=== PATIENT | female | born 1975 | race African-American/Black ===

== ENCOUNTER 2019-06-14 15:39 | Outpatient (CLI) | payer OTHER, SELFPAY ==
--- NOTE | ~2019-06-14 | MR_ITS ---
EXAMINATION: MR shoulder LT wo/w con DATE: 06/14/2019 17:18 INDICATION: Muscle strain at the left shoulder TECHNIQUE: Magnetic resonance imaging (MRI) of the left shoulder was performed without intravenous co ntrast. Sequences included axial PD-weighted FS FSE, coronal oblique PD-weighted FS FSE, coronal obli que T2-weighted FS FSE, sagittal PD-weighted FS FSE, and sagittal T1-weighted SE. COMPARISON: Left shoulder radiographs dated 05/26/2019 FINDINGS: Coracoacromial arch: The acromion undersurface is curved in morphology (type II). Fibrocartilaginous synchondrosis with un fused mesoacromial os acromiale. The coracoacromial ligament is normal. Acromioclavicular joint is no rmal. Rotator cuff: Mild infraspinatus tendinopathy with small partial-thickness tear along the middle facet footplate. T he tear has a T-shaped configuration on the sagittal images with thin horizontal mid substance tear p lesley extending 6 mm AP and with small orthogonal longitudinal tear plane extending towards potentiall y involving the articular side of the tendon measuring <2 mm AP. No significant medial propagation of the tear. The subscapularis, supraspinatus and teres minor tendons are normal. Normal rotator cuff m uscle bulk and signal. Biceps tendon, glenoid labrum and glenohumeral cartilage: Long head of the biceps tendon is normal. There is a superior, anterior to posterior tear of the lionel oid labrum (SLAP tear) extending from the 12:30 position anteriorly to the 11:00 position posteriorly . Mild partial thickness cartilage loss with smooth chondral surface at the central to posterior infe rior glenoid. Tiny marginal osteophytes about the inferior rim of the glenoid. Fluid: Physiologic amount of fluid in the glenohumeral joint and biceps tendon sheath. No loose osteochondra l bodies. No abnormal increased fluid signal or enhancing synovitis at the subacromial/subdeltoid bur sa to suggest mild bursitis. Bones: Normal marrow signal with no edema, fracture or pathologic marrow replacing process. IMPRESSION: 1. Mild glenohumeral osteoarthritis with SLAP tear at the superior glenoid labrum. 2. Small partial-thickness predominantly intrasubstance tear at the distalmost infraspinatus tendon w ith tiny extension to the articular surface. 3. Normal variant unfused mesoacromial os acromiale. Reviewed, dictated and finalized at location B. E LINER IMPRESSION: 1. Mild glenohumeral osteoarthritis with SLAP tear at the superior glenoid labr um. 2. Small partial-thickness predominantly intrasubstance tear at the distalmost infraspinatus tendon with tiny extension to the articular surface. 3. Normal variant unfused mesoacromial os acromiale.
[2019-06-14 16:32] LABS: Blood Urea Nitrogen 10 mg/dL (8-26); Estimated Glomerular Filt Rate > 60
== END 2019-06-14 15:40 | disposition home or self-care (01) ==
PROVIDERS: PCP Family Medicine; Visit Provider Family Medicine
DX: S46.912A Strain of unspecified muscle, fascia and tendon at shoulder and upper arm level, left arm, initial encounter (principal); X58.XXXA Exposure to other specified factors, initial encounter; M19.012 Primary osteoarthritis, left shoulder
CPT/HCPCS: 36415; 73223; A9577

== ENCOUNTER 2019-09-18 15:25 | Outpatient (CLI) | payer OTHER, SELFPAY ==
[2019-09-18 15:57] LABS: Hematocrit 38.1 % (37.0-47.0); Hemoglobin 12.8 g/dL (12.0-15.0); Mean Corpuscular HGB Conc 33.6 g/dl (32-36); Mean Corpuscular Hemoglobin 30.3 pg (26-34); Mean Corpuscular Volume 90.3 fl (80-100); Mean Platelet Volume 9.6 fl (7.4-10.4); Platelet Count Result 269 k/mm3 (150-375); Red Blood Count 4.22 M/mm3 (4.2-5.4); Red Cell Distribution Width 11.7 % (11.5-14.5); White Blood Count 6.9 K/mm3 (4.5-10.0)
--- NOTE | 2019-09-18 15:58 | ECG_ITS ---
Measurements Intervals [place] Rate: 103 P: 51 DE: 163 QRS: 56 QRSD: 85 T: 30 QT: 336 QTc: 440 Interpretive Statements SINUS TACHYCARDIA POSSIBLE LEFT ATRIAL ENLARGEMENT BORDERLINE ECG Electronically Signed On 09-18-2019 17:36:03 ACOUSTIC WARFARE ANALYST by Jeramie Mario D.O.
[2019-09-18 16:08] LABS: Hemoglobin A1C 11.9 % (<5.7)
[2019-09-18 16:14] LABS: Alanine Aminotransferase 35 U/L (4-35); Albumin Level 3.7 g/dL (3.5-5.1); Alkaline Phosphatase 84 U/L (38-126); Aspartate Amino Transferase 39 U/L (14-36); Bilirubin,Total 0.3 mg/dL (0.2-1.3); Blood Urea Nitrogen 9 mg/dL (7-17); Calcium 8.5 mg/dL (8.4-10.2); Carbon Dioxide 31 mmol/L (22-30); Chloride 99 mmol/L (98-107); Estimated Glomerular Filt Rate > 60; Glucose 309 mg/dL (65-105); Potassium 3.9 mmol/L (3.4-5.0); Sodium 140 mmol/L (137-145)
== END 2019-09-18 15:26 | disposition home or self-care (01) ==
PROVIDERS: PCP Family Medicine
DX: Z01.818 Encounter for other preprocedural examination (principal); Z01.810 Encounter for preprocedural cardiovascular examination; Z01.812 Encounter for preprocedural laboratory examination; R00.0 Tachycardia, unspecified
CPT/HCPCS: 36415; 80053; 83036; 85027; 93005

== ENCOUNTER 2020-07-21 16:27 | Inpatient (IN) | payer BC, SELFPAY ==
[2020-07-21] VITALS (7 sets, daily range): BP systolic 118–148; BP diastolic 69–86; PULSE 104–115; RESP 20–34; TEMP 36.6–36.9; O2SAT 86–93
--- NOTE | ~2020-07-21 | CT_ITS ---
EXAMINATION: CTA chest PE protocol EXAM DATE: 07/22/2020 12:01 INDICATION: COVID PNA; respiratory failure; chest pain. TECHNIQUE: Spiral CTA of the chest (pulmonary arteries) was performed with 200 cc Omnipaque 350 intr avenous contrast injection (patient was reinjected due to poor pulmonary arterial opacification on in itial injection). Images were acquired during the pulmonary arterial phase. Coronal maximum intens ity projection 3D-reconstructions were created by the technologist on dedicated workstation. Axial, coronal and sagittal reformatted images were reviewed. The dose[facility]length [facility] 835.67 mGy-cm. The exposure was tailored according to patient size (auto mA exposure cont rol), and iterative reconstruction (ASIR) was used as additional dose reduction technique. Comparison is made to prior examination from 04/23/2016. FINDINGS: There are no pulmonary emboli in the 1st through 3rd order (central and interlobar) pulmon geoffrey arteries. Some loss of attenuation in the segmental pulmonary arteries due to respiratory motion , but no intraluminal filling defects suspected. No thoracic aortic dissection. Moderate to severe amount of bilateral subsolid opacities with peripheral predominance, with some of these now demonstrating more confluence, solid attenuation. There are no pleural or pericardial effu sions. Tracheobronchial tree is patent. There is no mediastinal, hilar or axillary lymphadenopath y. There is no pneumothorax. Heart normal in size. No evidence of coronary arterial calcificati on. There is hepatic steatosis. There are cholecystectomy clips. There is thoracic spondylosis wit hout osteoblastic or osteolytic lesions identified. IMPRESSION: 1. Limited segmental evaluation, but no pulmonary emboli are suspected. 2. Moderate to severe amount of bilateral COVID pneumonia. Reviewed, dictated and finalized at location B. TRICAL MAINTENANCE ENGINEER
--- NOTE | ~2020-07-21 | XR_ITS ---
EXAMINATION: XR chest 1V portable EXAM DATE: 07/25/2020 06:20 INDICATION: COVID 19. TECHNIQUE: Portable AP frontal chest x-ray was obtained. Comparison is made to prior examination from 07/21/2020. FINDINGS: Moderate amount of bilateral acute airspace disease consistent with COVID pneumonia. There is relative sparing of the left upper lung zone. No sizable pleural effusion. No pneumothorax. Cardio mediastinal silhouette is normal. Compared to prior study suspect mild improvement. IMPRESSION: Moderate amount of right-sided predominant COVID pneumonia. Mild interval improvement. Reviewed, dictated and finalized at location A. DISPATCHER IMPRESSION: Moderate amount of right-sided predominant COVID pneumonia. Mild i nterval improvement.
--- NOTE | ~2020-07-21 | XR_ITS ---
EXAMINATION: XR chest 1V portable EXAM DATE: 07/21/2020 17:58 INDICATION: sob, COVID. TECHNIQUE: Portable AP frontal chest x-ray was obtained. Comparison is made to prior examination from 03/14/2019. FINDINGS: There is extensive bilateral ill-defined acute airspace disease consistent with COVID pneum onia. No pneumothorax or pleural effusion. Cardiomediastinal silhouette is normal. There are no osseo us abnormalities identified. IMPRESSION: Extensive acute bilateral airspace disease, COVID pneumonia. Reviewed, dictated and finalized at location A. TRY HUSBANDMAN
--- NOTE | 2020-07-21 16:47 | ECG_ITS ---
Measurements Intervals [place] Rate: 106 P: 39 TN: 136 QRS: 32 QRSD: 86 T: 38 QT: 339 QTc: 451 Interpretive Statements SINUS TACHYCARDIA BORDERLINE ECG Electronically Signed On 07-21-2020 18:54:49 GRADALL OPERATOR by Jeramie Mario D.O.
--- NOTE | 2020-07-21 16:50 | ED.GENADULT ---
HPI - General Adult General Chief complaint: Upper Respiratory Infection Stated complaint: COVID x5 days, unable to eat or drink Time Seen by Provider: 07/21/20 16:42 Source: patient Mode of arrival: ambulatory Limitations: no limitations History of Present Illness HPI narrative: This patient is a 44 year old female with history of DM who present for evaluation of nausea, vomiting diarrhea and shortness of breath. She was diagnosed with COVID on Wednesday, and the next day she developed shortness of breath. She is sob with exertion. She also reports intermittent chest pain. She also reports nausea, vomiting and diarrhea. She was found to be hypoxic on arrival with oxygen saturation 86% on room air. She denies lung or cardiac disease. Related Data Home Medications Medication Instructions Recorded Confirmed insulin glargine [Lantus U-100 50 unit SUBCUT HS 07/21/20 07/21/20 Insulin] insulin lispro [Humalog Pen] unit SUBCUT 07/21/20 pregabalin [Lyrica] 50 mg PO BID 07/21/20 07/21/20 Allergies Allergy/AdvReac Type Severity Reaction Status Date / Time No Known Allergies Allergy Unknown Verified 07/21/20 16:39 Review of Systems Review of Systems: All systems reviewed & are unremarkable except as noted in HPI and below Constitutional: Constitutional: Reports fatigue and Reports fever(s) Cardiovascular: Cardiovascular: Reports chest pain and Denies radiating jaw, neck or arm pain Respiratory: Respiratory: Reports cough and Reports dyspnea Gastrointestinal: Gastrointestinal: Reports diarrhea, Reports nausea and Reports vomiting PMFSH Past Medical History Medical History (Updated 07/21/20 @ 18:45 by Rosalba Mtz MD) Diabetes mellitus Surgical History Surgical History (Updated 07/21/20 @ 16:54 by Rosalba Mtz MD) Hx of appendectomy Hx of cholecystectomy Family History Family History (Updated 11/06/16 @ 23:56 by DOCTOR UNKNOWN) Mother Depression Patient's mother is in good health Father Hypertension Patient's father is in good health Family history of diabetes mellitus in first degree relative Sibling Patient's sister is in good health Patient's brother is in good health Grandparent Malignant neoplasm of prostate, Onset Age: 68 Diabetes mellitus Other Family history of pancreatic cancer Social History Social History Alcohol intake: never Gender identity (if verbalized by the patient): Female Exam Const: General: no acute distress, alert and ill appearing Orientation/consciousness: patient oriented x3 HENMT: Head: normocephalic and atraumatic Face and sinus: face symmetric Throat: posterior oropharynx normal and tonsils normal Eyes: EOM: EOMs intact bilaterally Resp: Effort & Inspection: not labored, tachypneic and no use of accessory muscles Auscultation: clear to auscultation bilaterally Other: able to speak in complete sentences Cardio: Rate: tachycardic Rhythm: regular rhythm Heart sounds: no murmurs GI: GI Palp: Yes Soft to palpation, No Tenderness to palpation present (GI) and No Guarding due to palpation present (GI) Auscultation: normal bowel sounds Skin: General skin exam: normal color Rashes: no rashes Neuro: General: patient oriented x3 and moves all extremities Extrem: General: no pedal edema Course Reevaluation(s) Reevaluation #1: I have discussed with patient that she has pneumonia due to COVID. She understands. Date: 07/21/20 Time: 18:41 Consultations Consultation #1: I Discussed case with Tonya Sheldon. She accepts patient with covid pneumonia and hypoxia. Agree unable to given remdesivir right now due to ALT elevated greater that 5 times. Date: 07/21/20 Time: 18:42 Vital Signs Vital signs: Vital Signs Temperature 98.4 F 07/21/20 16:32 Pulse Rate 111 H 07/21/20 16:32 Respiratory Rate 34 H 07/21/20 16:32 Blood Pressure 126/77 07/21/20 16:32 Pulse Oximetry 86 L 07/21/20 16:32 Te
[2020-07-21] MEDS: ONDANSETRON INJ 4 MG/2 ML VIAL IV PUSH (17:34)
[2020-07-21] MEDS: DEXAMETHASONE SOD PHOS INJ 4 MG/ML VIAL 6 MG IV PUSH (17:34)
[2020-07-21] MEDS: SODIUM CHLORIDE 0.9% IV 1,000 ML 999 ML IV CONT (17:35)
[2020-07-21 17:36] LABS: Base Excess ABG -3.4 mEq/l (+/-2.0); Carboxyhemoglobin 0.1 % THb (0-2.0); Fractional Inspired Oxygen 34 %; HCO3 ABG 19.9 mEq/l (22.0-26.0); Methemoglobin ABG 0.3 %THb (0-1.5); Oxygen Content ABG 17.8 %vol (16.0-22.0); Oxygen Saturation ABG 93.7 % (95.0-100.0); Oxyhemoglobin 92.2 % THb (90.0-100.0); PCO2 ABG 31.2 mmHg (35.0-45.0); PO2 ABG 66.1 mmHg (80.0-100.0); PO2 FiO2 Ratio Arterial Blood 1.94 %; Reduced Hemoglobin 7.4 %THb (0-5.0); Total Hemoglobin 13.7 g/dL (12.0-18.0); pH ABG 7.423 (7.350-7.450)
[2020-07-21 17:37] LABS: Device NASAL CANNULA; Liters per Minute 3.5 LPM; Modified Allen's Test Pass; Site Drawn LEFT RADIAL
[2020-07-21 17:55] LABS: Basophils Percent Auto 0.2 % (0.2-1.2); Eosinophils Percent Auto 0.2 % (0-4.4); Hematocrit 39.6 % (37.0-47.0); Hemoglobin 13.5 g/dL (12.0-15.0); Immature Granulocyte Absolute 0.02 K/mm3 (0.00-0.031); Immature Granulocyte Percent A 0.3 % (0-0.5); Lymphocytes Absolute Auto 1.49 K/mm3 (0.9-3.2); Lymphocytes Percent Auto 22.7 % (18.3-44.2); Mean Corpuscular HGB Conc 34.1 g/dl (32-36); Mean Corpuscular Hemoglobin 29.8 pg (26-34); Mean Corpuscular Volume 87.4 fl (80-100); Mean Platelet Volume 9.3 fl (7.4-10.4); Monocytes Absolute Auto 0.3 K/mm3 (0.1-0.6); Monocytes Percent Auto 3.8 % (2.6-8.5); Neutrophils Absolute Auto 4.8 K/mm3 (1.3-6.7); Neutrophils Percent Auto 72.8 % (45.5-73.1); Platelet Count Result 248 k/mm3 (150-375); Red Blood Count 4.53 M/mm3 (4.2-5.4); Red Cell Distribution Width 11.9 % (11.5-14.5); White Blood Count 6.6 K/mm3 (4.5-10.0)
[2020-07-21 18:06] LABS: Prothrombin Time 13.8 Seconds (11.1-14.7)
[2020-07-21 18:07] LABS: Partial Thromboplastin Time 26.1 SECONDS (22.3-36.8)
[2020-07-21 18:08] LABS: Lactic Acid Reflex 1.5 mmol/L (0.7-2.1)
[2020-07-21 18:12] LABS: Alanine Aminotransferase 186 U/L (4-35); Albumin Level 3.9 g/dL (3.5-5.1); Alkaline Phosphatase 139 U/L (38-126); Anion Gap 14 mmol/L (8-16); Aspartate Amino Transferase 205 U/L (14-36); Bilirubin,Total 0.6 mg/dL (0.2-1.3); Blood Urea Nitrogen 12 mg/dL (7-17); CRP 8.4 mg/dL (<1.0); Calcium 8.8 mg/dL (8.4-10.2); Carbon Dioxide 24 mmol/L (22-30); Chloride 101 mmol/L (98-107); Estimated Glomerular Filt Rate > 60; Glucose 317 mg/dL (65-105); Potassium 3.5 mmol/L (3.4-5.0); Sodium 139 mmol/L (137-145)
[2020-07-21 18:16] LABS: Platelet Estimate Adequate (Adequate)
[2020-07-21 18:17] LABS: Atypical Lymphocytes Present
[2020-07-21 18:21] LABS: Troponin I < 0.012 ng/mL (0.000-0.034)
--- NOTE | 2020-07-21 22:21 | PC.NURSE ---
This patient, Citlaly Orona, was admitted to [facility] Surg Room 314-01. Patient/family oriented to hospital policies and general routines including ID bracelet, bed and alarms, visiting hours, pain management, procedures, bathroom and other care routines, personal items, smoking policy, room service/diet, and visiting hours. Information on how to activate the Rapid Response Team has been discussed. Patient/Family are encouraged to report perceived risks to care and to ask questions if they do not understand what they are told or what they should do.
[2020-07-21] MEDS: ALBUTEROL SULFATE (*SP) AEROSOL 1 PUFF 6 PUFF INHALATION (23:06)
[2020-07-21] MEDS: LACTATED RINGERS 1,000 ML 125 ML IV CONT (23:17)
[2020-07-22 06:00] VITALS: BP 126/86; PULSE 115; RESP 18; TEMP 37; O2SAT 96
[2020-07-22 06:38] LABS: Basophils Percent Auto 0.1 % (0.2-1.2); Hematocrit 36.5 % (37.0-47.0); Hemoglobin 12.3 g/dL (12.0-15.0); Immature Granulocyte Absolute 0.04 K/mm3 (0.00-0.031); Immature Granulocyte Percent A 0.6 % (0-0.5); Lymphocytes Absolute Auto 1.22 K/mm3 (0.9-3.2); Lymphocytes Percent Auto 17.4 % (18.3-44.2); Mean Corpuscular HGB Conc 33.7 g/dl (32-36); Mean Corpuscular Hemoglobin 29.4 pg (26-34); Mean Corpuscular Volume 87.1 fl (80-100); Mean Platelet Volume 9.2 fl (7.4-10.4); Monocytes Absolute Auto 0.3 K/mm3 (0.1-0.6); Monocytes Percent Auto 4.3 % (2.6-8.5); Neutrophils Absolute Auto 5.4 K/mm3 (1.3-6.7); Neutrophils Percent Auto 77.6 % (45.5-73.1); Platelet Count Result 250 k/mm3 (150-375); Red Blood Count 4.19 M/mm3 (4.2-5.4); Red Cell Distribution Width 11.9 % (11.5-14.5)
[2020-07-22] MEDS: LACTATED RINGERS 1,000 ML 125 ML IV CONT (06:38)
[2020-07-22 06:58] LABS: Alanine Aminotransferase 161 U/L (4-35); Albumin Level 3.5 g/dL (3.5-5.1); Alkaline Phosphatase 118 U/L (38-126); Anion Gap 12 mmol/L (8-16); Aspartate Amino Transferase 140 U/L (14-36); Bilirubin,Total 0.4 mg/dL (0.2-1.3); Blood Urea Nitrogen 12 mg/dL (7-17); Calcium 8.4 mg/dL (8.4-10.2); Carbon Dioxide 21 mmol/L (22-30); Chloride 104 mmol/L (98-107); Estimated Glomerular Filt Rate > 60; Glucose 365 mg/dL (65-105); Potassium 4.1 mmol/L (3.4-5.0); Sodium 137 mmol/L (137-145)
[2020-07-22 08:00] VITALS: BP 148/85; PULSE 89; RESP 20; TEMP 36.3; O2SAT 97
[2020-07-22] MEDS: ALBUTEROL SULFATE (*SP) AEROSOL 1 PUFF 6 PUFF INHALATION ×2 (09:01→13:10)
[2020-07-22 09:04] VITALS: O2SAT 93
[2020-07-22 09:08] LABS: Glucose Point of Care 336 (65-105)
[2020-07-22] MEDS: DEXAMETHASONE 2 MG TABLET 6 MG PO (09:17)
[2020-07-22] MEDS: PREGABALIN (*CRX) 50 MG CAPSULE PO ×2 (09:18→17:52)
[2020-07-22] MEDS: INSULIN ASPART (*BKC) 100 UNITS/ML SUB-Q ×2 (09:18)
[2020-07-22] MEDS: DICYCLOMINE HCL 10 MG CAPSULE 20 MG PO (09:19)
[2020-07-22] MEDS: ASCORBIC ACID 500 MG TABLET PO (09:20)
[2020-07-22] MEDS: ZINC SULFATE 220 MG CAPSULE PO (09:20)
[2020-07-22] MEDS: CHOLECALCIFEROL 1,000 UNITS TABLET 1000 UNITS PO (09:20)
[2020-07-22] MEDS: ENOXAPARIN 40 MG/0.4 ML SYRINGE SUB-Q ×2 (09:20→21:35)
[2020-07-22 12:00] VITALS: BP 122/79; PULSE 87; RESP 26; TEMP 36.2; O2SAT 99
[2020-07-22 12:36] LABS: Glucose Point of Care 426 (65-105)
--- NOTE | 2020-07-22 13:00 | PM.IMHP ---
H&P: HPI History of Present Illness Date/Time: 07/22/201199 Chief Complaint: Shortness of breath Narrative: 07/22/201199 The supervising physician for this history and physical is Dr Sammi Ren. Ms. Orona is a pleasant 44yo F with history of type 2 diabetes mellitus, diabetic peripheral neuropathy, irritable bowel syndrome, known COVID positive 07/16/20 who presented to the ED for evaluation of weakness and worsening shortness of breath. She works at [employer] and underwent her routine COVID testing for work and was found to be positive 07/16/20 however she did not develop symptoms until the following day 07/17 with shortness of breath and fatigue. She describes a significant nonproductive cough and was using a lot of cough syrup at home. In the last 2 days she developed even worsening shortness of breath, worse with minimal exertion like walking to the bathroom and her family convinced her present to the ED. She describes anterior pleuritic pain, dull ache with cough and deep breaths. She was found to be hypoxic in the ED saturating 86% on room air and was placed on supplemental oxygen. At time of my assessment she is tolerating 6 L/min high-flow nasal cannula with adequate saturations. Chest x-ray demonstrates extensive bilateral airspace disease. She was started on dexamethasone by ED provider. AST and ALT were elevated and she was not started on remdesivir at this time. She was admitted to hospitalist service for management of acute respiratory failure with hypoxia secondary to COVID-19 pneumonia. Review of Systems Review of Systems: Narrative: She describes worsening shortness of breath and pleuritic chest discomfort worse with cough and deep breath. She describes myalgia and fatigue, decreased appetite lately but she is hungry today. Denies dizziness, headaches. Denies dysuria or hematuria. Twelve systems were reviewed with pertinent positives and negatives as per HPI. Except as documented, all other systems were reviewed and are negative. [facility] Past Medical History Medical History Diabetes mellitus Diabetic peripheral neuropathy Irritable bowel syndrome Surgical History Surgical History History of endometrial ablation Around 2006 History of shoulder surgery Left rotator cuff repair; October 2019 History of tubal ligation Around 2006 Hx of appendectomy Age [age] years old. Hx of cholecystectomy At age [age] years old. Family History Family History Mother Depression Heart disease Mother had multi-vessel CABG age 40s. Father Hypertension Family history of diabetes mellitus in first degree relative Diabetes mellitus Sibling No problems noted. Grandparent Malignant neoplasm of prostate, Onset Age: 68 Diabetes mellitus Other Acute myocardial infarction Social History Social History (Updated 07/22/20 @ 17:29 by Paola Mohan PA-C) Social History: Ms. Orona lives at home with her significant other in [place]. 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 She denies alcohol, tobacco, or other substance use. Her PCP is a nurse practitioner at Dr Bull's office. She designates her brother, Bran Gan, to be her surrogate decision maker. She is full code status confirmed 07/22/20. Smoking status: Never smoker Alcohol intake: never Substance use: never Gender identity (if verbalized by the patient): Female Spiritual care concerns: No Meds Home Medications and Allergies Home Medications Medication Instructions Recorded Confirmed Type dicyclomine 20 mg PO Q4H PRN MDD 120 07/21/20 07/21/20 History insulin glargine [Lantus U-100 50 unit SUBCUT HS 07/21/20 07/21/20 History Insulin] insulin lispro [Humalog Pen] See Rx Instructions .ROUTE .COMPLEX 07/21/20 07/21/20 History pregabalin [L
[2020-07-22] MEDS: INSULIN ASPART (*BKC) 100 UNITS/ML 15 UNITS SUB-Q (13:04)
--- NOTE | 2020-07-22 13:34 | PC.NURSE ---
notified Ayleen Guillaume of blood sugar of 426. Orders received for one time dose 15 units novolog.
[2020-07-22 16:00] VITALS: BP 140/82; PULSE 94; RESP 24; TEMP 36.4; O2SAT 92
--- NOTE | 2020-07-22 16:56 | PC.NURSE ---
Notified Ayleen Guillaume pts Blood sugar was 420. orders recieved to non- admin SSI. She will enter a one time dose of Novolog and enter labs.
[2020-07-22 17:42] LABS: Alveolar/Arterial O2 Gradient 204.8 mmHg; Carboxyhemoglobin 0.3 % THb (0-2.0); Fractional Inspired Oxygen 44 %; HCO3 ABG 20.7 mEq/l (22.0-26.0); Methemoglobin ABG 0.3 %THb (0-1.5); Oxygen Content ABG 17.6 %vol (16.0-22.0); Oxygen Saturation ABG 94.7 % (95.0-100.0); Oxyhemoglobin 92.6 % THb (90.0-100.0); PO2 ABG 71.3 mmHg (80.0-100.0); PO2 FiO2 Ratio Arterial Blood 1.62 %; Reduced Hemoglobin 6.8 %THb (0-5.0); Total Hemoglobin 13.5 g/dL (12.0-18.0); pH ABG 7.415 (7.350-7.450)
[2020-07-22 17:43] LABS: Device HIGH FLOW NASAL CANN; Modified Allen's Test Pass; Site Drawn RIGHT RADIAL
[2020-07-22] MEDS: INSULIN ASPART (*BKC) 100 UNITS/ML 20 UNITS SUB-Q (17:52)
[2020-07-22 18:04] LABS: Anion Gap 9 mmol/L (8-16); Blood Urea Nitrogen 14 mg/dL (7-17); Calcium 9.1 mg/dL (8.4-10.2); Carbon Dioxide 26 mmol/L (22-30); Chloride 104 mmol/L (98-107); Estimated Glomerular Filt Rate > 60; Glucose 424 mg/dL (65-105); Sodium 139 mmol/L (137-145)
[2020-07-22 18:08] LABS: Beta-Hydroxybutyrate/Acetoacetate 0.74 mmol/L (0.02-0.27)
[2020-07-22 18:19] LABS: Glucose Point of Care 420 (65-105)
[2020-07-22] MEDS: BENZONATATE 100 MG CAPSULE PO (19:00)
[2020-07-22 19:01] LABS: Glucose Point of Care 443 (65-105)
--- NOTE | 2020-07-22 19:24 | PC.NURSE ---
Notified Ayleen Horn of recheck of blood sugar after insulin administration. New blood sugar level was 443. Orders to recheck in 2 hours were given. Notified ELY Manriquez taking over for this pt of this order.
[2020-07-22 20:00] VITALS: BP 141/75; PULSE 88; RESP 18; TEMP 36.5; O2SAT 98
[2020-07-22] MEDS: ALBUTEROL SULFATE (*SP) AEROSOL 1 PUFF 4 PUFF INHALATION (21:00)
[2020-07-22] MEDS: INSULIN GLARGINE (*BKC) 100 UNITS/ML 50 UNITS SUB-Q (21:35)
[2020-07-22] MEDS: guaiFENesin 12 HR 600 MG TABCR PO (21:35)
[2020-07-22 21:50] LABS: Glucose Point of Care 430 (65-105)
[2020-07-22] MEDS: INSULIN ASPART (*BKC) 100 UNITS/ML 12 UNITS SUB-Q (23:20)
[2020-07-23] VITALS (8 sets, daily range): BP systolic 137–150; BP diastolic 73–86; PULSE 61–96; RESP 18–20; TEMP 36.2–36.9; O2SAT 91–97
[2020-07-23 06:30] LABS: Basophils Percent Auto 0.1 % (0.2-1.2); Hematocrit 36.2 % (37.0-47.0); Hemoglobin 12.3 g/dL (12.0-15.0); Immature Granulocyte Absolute 0.12 K/mm3 (0.00-0.031); Immature Granulocyte Percent A 1.5 % (0-0.5); Lymphocytes Absolute Auto 1.41 K/mm3 (0.9-3.2); Lymphocytes Percent Auto 17.5 % (18.3-44.2); Mean Corpuscular Hemoglobin 29.9 pg (26-34); Mean Corpuscular Volume 88.1 fl (80-100); Monocytes Absolute Auto 0.5 K/mm3 (0.1-0.6); Monocytes Percent Auto 6.2 % (2.6-8.5); Neutrophils Percent Auto 74.7 % (45.5-73.1); Platelet Count Result 304 k/mm3 (150-375); Red Blood Count 4.11 M/mm3 (4.2-5.4); White Blood Count 8.1 K/mm3 (4.5-10.0)
[2020-07-23 07:14] LABS: Hemoglobin A1C 9.7 % (<5.7)
[2020-07-23 07:43] LABS: Thyroid Stimulating Hormone Reflex 0.794 uIU/mL (0.465-4.68)
[2020-07-23 07:54] LABS: Alanine Aminotransferase 137 U/L (4-35); Albumin Level 3.5 g/dL (3.5-5.1); Alkaline Phosphatase 143 U/L (38-126); Anion Gap 8 mmol/L (8-16); Aspartate Amino Transferase 94 U/L (14-36); Bilirubin,Total 0.4 mg/dL (0.2-1.3); Blood Urea Nitrogen 15 mg/dL (7-17); CRP 4.2 mg/dL (<1.0); Calcium 9.2 mg/dL (8.4-10.2); Carbon Dioxide 25 mmol/L (22-30); Chloride 107 mmol/L (98-107); Estimated Glomerular Filt Rate > 60; Glucose 401 mg/dL (65-105); Magnesium 2.1 mg/dL (1.6-2.3); Sodium 140 mmol/L (137-145)
[2020-07-23 08:22] LABS: Glucose Point of Care 424 (65-105)
--- NOTE | 2020-07-23 08:30 | PC.NURSE ---
Notified Xander Lowe. -Of high blood sugar of 424. She will review chart and add/adjust orders.
[2020-07-23] MEDS: PREGABALIN (*CRX) 50 MG CAPSULE PO ×2 (09:01→17:33)
[2020-07-23] MEDS: BENZONATATE 100 MG CAPSULE PO ×3 (09:01→17:33)
[2020-07-23] MEDS: CHOLECALCIFEROL 1,000 UNITS TABLET 1000 UNITS PO (09:01)
[2020-07-23] MEDS: INSULIN ASPART (*BKC) 100 UNITS/ML 35 UNITS SUB-Q (09:01)
[2020-07-23] MEDS: ENOXAPARIN 40 MG/0.4 ML SYRINGE SUB-Q ×2 (09:01→20:18)
[2020-07-23] MEDS: ASCORBIC ACID 500 MG TABLET PO (09:01)
[2020-07-23] MEDS: DEXAMETHASONE 2 MG TABLET 6 MG PO (09:01)
[2020-07-23] MEDS: DICYCLOMINE HCL 10 MG CAPSULE 20 MG PO (09:02)
[2020-07-23] MEDS: guaiFENesin 12 HR 600 MG TABCR PO ×2 (09:02→20:18)
[2020-07-23] MEDS: ZINC SULFATE 220 MG CAPSULE PO (09:02)
[2020-07-23] MEDS: ALBUTEROL SULFATE (*SP) AEROSOL 1 PUFF 4 PUFF INHALATION ×4 (09:10→20:19)
[2020-07-23 09:51] LABS: Alanine Aminotransferase 132 U/L (4-35)
[2020-07-23] MEDS: REMDESIVIR 200 MG/NS 250 ML 200 MG/250 ML BAG 250 MG IVPB (10:23)
[2020-07-23 11:18] LABS: Glucose Point of Care 377 (65-105)
--- NOTE | 2020-07-23 11:18 | PC.NURSE ---
Recheck of morning insulin admin.of 35 units of novolog was 377 at 1110. Suzanna MAYORGA notified. Wants us to check blood sugar agin before she eats lunch use SSI with those results.
[2020-07-23 12:40] LABS: Glucose Point of Care 390 (65-105)
[2020-07-23] MEDS: INSULIN ASPART (*BKC) 100 UNITS/ML SUB-Q ×4 (13:07→17:33)
--- NOTE | 2020-07-23 14:51 | PM.IMPN ---
Progress Note: A&P Assessment and Plan (1) Pneumonia due to COVID-19 virus: Code(s): U07.1 - COVID-19; J12.89 - Other viral pneumonia Status: Acute Assessment and Plan: Patient tested positive -she is currently on 6L of oxygen and appears stable -Remdesivir started today since her liver enzymes have improved, will monitor these. I have discussed this with the patient -continue dexamethasone and Lovenox -Continue supportive care with Tylenol for fevers, albuterol MDI, tessalon perles, incentive spirometer, supplementation of Zinc, vitamins C and D. (2) Acute respiratory failure with hypoxia: Code(s): J96.01 - Acute respiratory failure with hypoxia Status: Acute Assessment and Plan: Secondary to above -Continue supplemental O2 and wean as tolerated to keep O2 saturations > 90%. (3) Diabetes mellitus: Qualifiers: Diabetes mellitus type: type 2 Diabetes mellitus truck hop insulin use: with truck hop use Diabetes mellitus complication status: with hyperglycemia Qualified Code(s): E11.65 - Type 2 diabetes mellitus with hyperglycemia; Z79.4 - haunted history tour guide (current) use of insulin Code(s): E11.9 - Type 2 diabetes mellitus without complications Status: Chronic Assessment and Plan: Uncontrolled and worse with steroid therapy -patient has a significant sliding scale at home and we will continue with a variation of that -monitor closely -last glucose 390 -continue Lantus -last A1c 9.7 -normal anion gap (4) Elevated liver enzymes: Code(s): R74.8 - Abnormal levels of other serum enzymes Status: Acute Assessment and Plan: Elevated on arrival and improving -likely secondary to viral syndrome. -She denies any liver issues, did have very minimally elevated AST on labs earlier this year. -Monitor CMP, consider abdominal ultrasound if LFTs do not continue improve. (5) Diabetic peripheral neuropathy: Code(s): E11.42 - Type 2 diabetes mellitus with diabetic polyneuropathy Status: Chronic Assessment and Plan: Continue her Lyrica. -No acute issues today. (6) Irritable bowel syndrome: Qualifiers: Irritable bowel syndrome type: with diarrhea Qualified Code(s): K58.0 - Irritable bowel syndrome with diarrhea Code(s): K58.9 - Irritable bowel syndrome without diarrhea Status: Chronic Assessment and Plan: No acute issues. -She takes Bentyl as needed at home, continue this. Time Spent With Patient Time with patient: 25 - 35 minutes Subjective Date/time seen: 07/23/20 14:51 Interval history: Pt is a 44-year-old female here for COVID-19 pneumonia. Patient was seen today and states she is doing better today than she was yesterday. She still feels short of breath when she is talking on the phone or moving around but overall improved from the prior days. She has no shortness of breath while at rest. She does have some stabbing like chest pain when she coughs but no other chest pain other than that. Her appetite has improved and she is eating and drinking okay. She had diarrhea the last few days but that has resolved as well Review of Systems Review of Systems: All systems reviewed & are unremarkable except as noted in HPI and below Exam Narrative: Exam Narrative: General: Well developed well nourished patient in NAD HEENT: normocephalic Neck: supple Neuro: Alert and oriented x4 CV:RRR Resp:CTA Abd: Soft, non distended. No pain to palpation. Positive bowel sounds Extremities: No swelling, erythema, or pain to palpation. Objective Data Vital Signs Vital Signs: Vital Signs - 24 hr 07/22/20 16:00 07/22/20 20:00 07/23/20 00:00 Temperature 97.5 F L 97.7 F 97.4 F L Pulse Rate 94 88 95 Respiratory Rate 24 H 18 20 Blood Pressure 140/82 141/75 H 148/84 H Pulse Oximetry 92 98 96 07/23/20 04:00 07/23/20 08:00 07/23/20 12:00 Temperature 97.1
[2020-07-23 17:31] LABS: Glucose Point of Care 343 (65-105)
[2020-07-23] MEDS: INSULIN GLARGINE (*BKC) 100 UNITS/ML 50 UNITS SUB-Q (20:18)
[2020-07-23 21:08] LABS: Glucose Point of Care 356 (65-105)
[2020-07-24] VITALS (10 sets, daily range): BP systolic 128–180; BP diastolic 58–85; PULSE 56–99; RESP 16–20; TEMP 36.1–37; O2SAT 94–98
[2020-07-24 07:03] LABS: Alanine Aminotransferase 118 U/L (4-35); Albumin Level 3.2 g/dL (3.5-5.1); Alkaline Phosphatase 118 U/L (38-126); Anion Gap 6 mmol/L (8-16); Aspartate Amino Transferase 88 U/L (14-36); Bilirubin,Total 0.4 mg/dL (0.2-1.3); Blood Urea Nitrogen 15 mg/dL (7-17); Calcium 8.7 mg/dL (8.4-10.2); Carbon Dioxide 27 mmol/L (22-30); Chloride 107 mmol/L (98-107); Estimated Glomerular Filt Rate > 60; Glucose 354 mg/dL (65-105); Magnesium 1.7 mg/dL (1.6-2.3); Potassium 3.5 mmol/L (3.4-5.0); Sodium 140 mmol/L (137-145)
[2020-07-24 08:08] LABS: Glucose Point of Care 337 (65-105)
[2020-07-24] MEDS: ZINC SULFATE 220 MG CAPSULE PO (09:23)
[2020-07-24] MEDS: DEXAMETHASONE 2 MG TABLET 6 MG PO (09:23)
[2020-07-24] MEDS: BENZONATATE 100 MG CAPSULE PO ×3 (09:24→17:07)
[2020-07-24] MEDS: ENOXAPARIN 40 MG/0.4 ML SYRINGE SUB-Q ×2 (09:24→21:09)
[2020-07-24] MEDS: ASCORBIC ACID 500 MG TABLET PO (09:24)
[2020-07-24] MEDS: guaiFENesin 12 HR 600 MG TABCR PO ×2 (09:24→21:09)
[2020-07-24] MEDS: MAGNESIUM OXIDE 200 MG TABLET PO ×2 (09:24→21:10)
[2020-07-24] MEDS: CHOLECALCIFEROL 1,000 UNITS TABLET 1000 UNITS PO (09:24)
[2020-07-24] MEDS: INSULIN ASPART (*BKC) 100 UNITS/ML SUB-Q ×6 (09:24→17:14)
[2020-07-24] MEDS: REMDESIVIR 100 MG/NS 250 ML 100 MG/250 ML BAG 250 MG IVPB (09:27)
[2020-07-24] MEDS: PREGABALIN (*CRX) 50 MG CAPSULE PO ×2 (09:27→17:07)
[2020-07-24] MEDS: ALBUTEROL SULFATE (*SP) AEROSOL 1 PUFF 4 PUFF INHALATION ×4 (09:39→21:10)
[2020-07-24 11:42] LABS: Glucose Point of Care 356 (65-105)
--- NOTE | 2020-07-24 16:13 | PM.IMPN ---
Progress Note: A&P Assessment and Plan (1) Pneumonia due to COVID-19 virus: Code(s): U07.1 - COVID-19; J12.89 - Other viral pneumonia Status: Acute Assessment and Plan: Patient tested positive 07/16/20 -she is currently on 3L of oxygen and appears stable--improved from yesterday -Remdesivir txbpxeg10/22/20 since her liver enzymes have improved, will monitor these. I have discussed this with the patient -continue dexamethasone and Lovenox -Continue supportive care with Tylenol for fevers, albuterol MDI, tessalon perles, incentive spirometer, supplementation of Zinc, vitamins C and D. -will give 1 dose of Lasix (2) Acute respiratory failure with hypoxia: Code(s): J96.01 - Acute respiratory failure with hypoxia Status: Acute Assessment and Plan: Secondary to above -Continue supplemental O2 and wean as tolerated to keep O2 saturations > 90%. (3) Diabetes mellitus: Qualifiers: Diabetes mellitus type: type 2 Diabetes mellitus correction insulin use: with truck terminal manager use Diabetes mellitus complication status: with hyperglycemia Qualified Code(s): E11.65 - Type 2 diabetes mellitus with hyperglycemia; Z79.4 - buttermaker continuous churn (current) use of insulin Code(s): E11.9 - Type 2 diabetes mellitus without complications Status: Chronic Assessment and Plan: Uncontrolled and worse with steroid therapy -patient has a significant sliding scale at home and we will continue with a variation of that (increased today) -monitor closely -last glucose 356 -continue Lantus, will increase -last A1c 9.7 -normal anion gap -glucose worse because of steroids (4) Elevated liver enzymes: Code(s): R74.8 - Abnormal levels of other serum enzymes Status: Acute Assessment and Plan: Elevated on arrival and improving -likely secondary to viral syndrome. -She denies any liver issues, did have very minimally elevated AST on labs earlier this year. -Monitor CMP, consider abdominal ultrasound if LFTs do not continue improve. (5) Diabetic peripheral neuropathy: Code(s): E11.42 - Type 2 diabetes mellitus with diabetic polyneuropathy Status: Chronic Assessment and Plan: Continue her Lyrica. -No acute issues today. (6) Irritable bowel syndrome: Qualifiers: Irritable bowel syndrome type: with diarrhea Qualified Code(s): K58.0 - Irritable bowel syndrome with diarrhea Code(s): K58.9 - Irritable bowel syndrome without diarrhea Status: Chronic Assessment and Plan: No acute issues. -She takes Bentyl as needed at home, continue this. Subjective Date/time seen: 07/24/20 16:13 Interval history: Pt is a 44-year-old female here for COVID-19 pneumonia. Patient was seen today and states she is doing better than yesterday. She think she can take deeper breaths but he cannot take full breaths. She has been walking around the room and does not feel short of breath. No short of breath at rest but does cough when she takes deep breaths. She has been having back spasms. She is continuing to eat and no longer has diarrhea. She states NovoLog makes her legs swell and she starting to feel some swelling in her lower extremities Exam Narrative: Exam Narrative: General: Well developed well nourished patient in NAD HEENT: normocephalic Neck: supple Neuro: Alert and oriented x4 CV:RRR Resp: Decreased breath sounds. When she takes deep breaths, she coughs. Abd: Soft, non distended. No pain to palpation. Positive bowel sounds Extremities: Slight swelling to the feet. No swelling to the lower extremities Objective Data Vital Signs Vital Signs: Vital Signs - 24 hr 07/23/20 20:00 07/23/20 20:15 07/23/20 23:53 Temperature 97.9 F 97.6 F Pulse Rate 78 61 Respiratory Rate 18 20 Blood Pressure 148/86 H 146/73 H Pulse Oximetry 97 91 97 07/24/20 04:00 07/24/20 04:16 07/24/20 06:09 Temperature 98.
[2020-07-24] MEDS: FUROSEMIDE INJ 40 MG/4 ML VIAL 20 MG IV PUSH (17:06)
[2020-07-24] MEDS: CYCLOBENZAPRINE HCL 5 MG TABLET PO (17:07)
[2020-07-24 17:21] LABS: Glucose Point of Care 297 (65-105)
[2020-07-24] MEDS: INSULIN GLARGINE (*BKC) 100 UNITS/ML 60 UNITS SUB-Q (21:09)
[2020-07-24 21:21] LABS: Glucose Point of Care 325 (65-105)
[2020-07-25 04:00] VITALS: BP 122/70; PULSE 106; RESP 18; TEMP 36.2; O2SAT 93
[2020-07-25 06:41] LABS: Hematocrit 36.6 % (37.0-47.0); Hemoglobin 12.3 g/dL (12.0-15.0); Mean Corpuscular HGB Conc 33.6 g/dl (32-36); Mean Corpuscular Hemoglobin 29.5 pg (26-34); Mean Corpuscular Volume 87.8 fl (80-100); Platelet Count Result 368 k/mm3 (150-375); Red Blood Count 4.17 M/mm3 (4.2-5.4); Red Cell Distribution Width 11.9 % (11.5-14.5); White Blood Count 8.6 K/mm3 (4.5-10.0)
[2020-07-25 07:46] LABS: Alanine Aminotransferase 133 U/L (4-35); Albumin Level 3.3 g/dL (3.5-5.1); Alkaline Phosphatase 113 U/L (38-126); Anion Gap 9 mmol/L (8-16); Aspartate Amino Transferase 126 U/L (14-36); Bilirubin,Total 0.3 mg/dL (0.2-1.3); Blood Urea Nitrogen 17 mg/dL (7-17); Calcium 8.7 mg/dL (8.4-10.2); Carbon Dioxide 28 mmol/L (22-30); Chloride 102 mmol/L (98-107); Estimated Glomerular Filt Rate > 60; Glucose 294 mg/dL (65-105); Lactate Dehydrogenase 1133 U/L (313-618); Magnesium 1.6 mg/dL (1.6-2.3); Potassium 3.4 mmol/L (3.4-5.0); Sodium 139 mmol/L (137-145)
[2020-07-25 08:00] VITALS: BP 128/79; PULSE 114; RESP 20; TEMP 36.4; O2SAT 95
[2020-07-25 08:23] LABS: Glucose Point of Care 284 (65-105)
[2020-07-25] MEDS: INSULIN ASPART (*BKC) 100 UNITS/ML SUB-Q ×6 (08:57→18:16)
[2020-07-25] MEDS: DEXAMETHASONE 2 MG TABLET 6 MG PO (08:59)
[2020-07-25] MEDS: CHOLECALCIFEROL 1,000 UNITS TABLET 1000 UNITS PO (09:00)
[2020-07-25] MEDS: ALBUTEROL SULFATE (*SP) AEROSOL 1 PUFF 4 PUFF INHALATION ×4 (09:00→20:50)
[2020-07-25] MEDS: ZINC SULFATE 220 MG CAPSULE PO (09:00)
[2020-07-25] MEDS: ENOXAPARIN 40 MG/0.4 ML SYRINGE SUB-Q ×2 (09:01→20:36)
[2020-07-25] MEDS: ASCORBIC ACID 500 MG TABLET PO (09:01)
[2020-07-25] MEDS: BENZONATATE 100 MG CAPSULE PO ×3 (09:01→18:19)
[2020-07-25] MEDS: MAGNESIUM OXIDE 200 MG TABLET PO ×2 (09:02→20:51)
[2020-07-25] MEDS: guaiFENesin 12 HR 600 MG TABCR PO ×2 (09:02→20:37)
[2020-07-25] MEDS: PREGABALIN (*CRX) 50 MG CAPSULE PO ×2 (09:04→18:15)
[2020-07-25 11:30] VITALS: PULSE 85; RESP 18; O2SAT 93
[2020-07-25] MEDS: REMDESIVIR 100 MG/NS 250 ML 100 MG/250 ML BAG 250 MG IVPB (11:37)
[2020-07-25 12:00] VITALS: BP 147/78; PULSE 85; RESP 18; TEMP 36.9; O2SAT 93
[2020-07-25 12:31] LABS: Glucose Point of Care 289 (65-105)
--- NOTE | 2020-07-25 14:32 | PM.IMPN ---
Progress Note: A&P Assessment and Plan (1) Pneumonia due to COVID-19 virus: Code(s): U07.1 - COVID-19; J12.89 - Other viral pneumonia Status: Acute Assessment and Plan: Patient tested positive 07/16/20 -she is currently on 1L of oxygen and appears stable--improved from yesterday -she is still not really taking deep breaths and incentive spirometer was encouraged -Remdesivir krruvkc78/22/20 since her liver enzymes have improved, will monitor these. They are up a little bit today but still not over the limit. Will monitor again tomorrow -continue dexamethasone and Lovenox -Continue supportive care with Tylenol for fevers, albuterol MDI, tessalon perles, incentive spirometer, supplementation of Zinc, vitamins C and D. -chest x-ray improved (2) Acute respiratory failure with hypoxia: Code(s): J96.01 - Acute respiratory failure with hypoxia Status: Acute Assessment and Plan: Secondary to above -Continue supplemental O2 and wean as tolerated to keep O2 saturations > 90%. 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: with snf use Diabetes mellitus complication status: with hyperglycemia Qualified Code(s): E11.65 - Type 2 diabetes mellitus with hyperglycemia; Z79.4 - halfway (current) use of insulin Code(s): E11.9 - Type 2 diabetes mellitus without complications Status: Chronic Assessment and Plan: Uncontrolled and worse with steroid therapy -patient has a significant sliding scale at home and we will continue with a variation of that -monitor closely -last glucose 289 Which is better than she has been averaging -continue Lantus at increased dose -last A1c 9.7 -normal anion gap -glucose worse because of steroids (4) Elevated liver enzymes: Code(s): R74.8 - Abnormal levels of other serum enzymes Status: Acute Assessment and Plan: Elevated on arrival and improving -likely secondary to viral syndrome. -She denies any liver issues, did have very minimally elevated AST on labs earlier this year. -Monitor CMP, consider abdominal ultrasound if LFTs do not continue improve. (5) Diabetic peripheral neuropathy: Code(s): E11.42 - Type 2 diabetes mellitus with diabetic polyneuropathy Status: Chronic Assessment and Plan: Continue her Lyrica. -No acute issues today. (6) Irritable bowel syndrome: Qualifiers: Irritable bowel syndrome type: with diarrhea Qualified Code(s): K58.0 - Irritable bowel syndrome with diarrhea Code(s): K58.9 - Irritable bowel syndrome without diarrhea Status: Chronic Assessment and Plan: No acute issues. -She takes Bentyl as needed at home, continue this. Subjective Date/time seen: 07/25/20 14:32 Interval history: Pt is a 44-year-old female here for COVID-19 pneumonia. Patient was seen today and a little more tired today. She said she was up walking around a lot of the night and could not sleep but got some sleep. She still isn't able to take deep breath and is coughing a lot with inspiration. She feels slightly better than yesterday. No dyspnea on exertion when walking around the room or at rest. No chest pain. She is eating and drinking okay. She states her swelling has gotten better with the Lasix yesterday Exam Narrative: Exam Narrative: General: Well developed well nourished patient in NAD HEENT: normocephalic Neck: supple Neuro: Alert and oriented x4 CV:RRR Resp: Decreased breath sounds. When she takes deep breaths, she coughs. Abd: Soft, non distended. No pain to palpation. Positive bowel sounds Extremities: Slight swelling to the feet. No swelling to the lower extremities Objective Data Vital Signs Vital Signs: Vital Signs - 24 hr 07/24/20 16:00 07/24/20 20:00 07/24/20 21:19 Temperature 98.6 F 97.1 F L Pulse Rate 81 73 Respiratory
[2020-07-25 16:00] VITALS: BP 139/84; PULSE 106; RESP 18; TEMP 36.2; O2SAT 94
[2020-07-25 17:46] LABS: Glucose Point of Care 364 (65-105)
[2020-07-25 20:00] VITALS: BP 148/58; PULSE 83; RESP 20; TEMP 37; O2SAT 94
[2020-07-25] MEDS: INSULIN GLARGINE (*BKC) 100 UNITS/ML 60 UNITS SUB-Q (20:37)
[2020-07-25 21:58] LABS: Glucose Point of Care 383 (65-105)
[2020-07-26] VITALS (8 sets, daily range): BP systolic 133–161; BP diastolic 63–89; PULSE 68–91; RESP 18–20; TEMP 36.6–36.9; O2SAT 91–99
[2020-07-26 06:41] LABS: Hematocrit 35.8 % (37.0-47.0); Mean Corpuscular HGB Conc 33.5 g/dl (32-36); Mean Corpuscular Hemoglobin 29.5 pg (26-34); Mean Platelet Volume 8.9 fl (7.4-10.4); Platelet Count Result 340 k/mm3 (150-375); Red Blood Count 4.07 M/mm3 (4.2-5.4); Red Cell Distribution Width 11.9 % (11.5-14.5); White Blood Count 8.6 K/mm3 (4.5-10.0)
[2020-07-26] MEDS: INSULIN ASPART (*BKC) 100 UNITS/ML SUB-Q ×5 (07:56→17:30)
[2020-07-26] MEDS: ZINC SULFATE 220 MG CAPSULE PO (07:58)
[2020-07-26] MEDS: BENZONATATE 100 MG CAPSULE PO ×3 (07:58→17:27)
[2020-07-26] MEDS: guaiFENesin 12 HR 600 MG TABCR PO ×2 (07:59→20:26)
[2020-07-26] MEDS: ENOXAPARIN 40 MG/0.4 ML SYRINGE SUB-Q ×2 (07:59→20:26)
[2020-07-26] MEDS: ASCORBIC ACID 500 MG TABLET PO (07:59)
[2020-07-26] MEDS: DEXAMETHASONE 2 MG TABLET 6 MG PO (07:59)
[2020-07-26] MEDS: CHOLECALCIFEROL 1,000 UNITS TABLET 1000 UNITS PO (07:59)
[2020-07-26] MEDS: MAGNESIUM OXIDE 200 MG TABLET PO ×2 (07:59→20:26)
[2020-07-26 08:00] LABS: Glucose Point of Care 179 (65-105)
[2020-07-26] MEDS: PREGABALIN (*CRX) 50 MG CAPSULE PO ×2 (08:02→17:27)
[2020-07-26] MEDS: ALBUTEROL SULFATE (*SP) AEROSOL 1 PUFF 4 PUFF INHALATION ×4 (08:08→20:27)
[2020-07-26 08:54] LABS: Alanine Aminotransferase 133 U/L (4-35); Albumin Level 3.1 g/dL (3.5-5.1); Alkaline Phosphatase 103 U/L (38-126); Anion Gap 7 mmol/L (8-16); Aspartate Amino Transferase 93 U/L (14-36); Bilirubin,Total 0.3 mg/dL (0.2-1.3); Blood Urea Nitrogen 13 mg/dL (7-17); Calcium 8.3 mg/dL (8.4-10.2); Carbon Dioxide 30 mmol/L (22-30); Chloride 105 mmol/L (98-107); Estimated Glomerular Filt Rate > 60; Glucose 190 mg/dL (65-105); Magnesium 1.6 mg/dL (1.6-2.3); Potassium 2.8 mmol/L (3.4-5.0); Sodium 142 mmol/L (137-145)
[2020-07-26 09:27] LABS: CRP 1.1 mg/dL (<1.0); Lactate Dehydrogenase 918 U/L (313-618)
[2020-07-26] MEDS: POTASSIUM CHLORIDE 20 MEQ PACKET (FOR LIQUID) 40 MEQ PO (09:29)
--- NOTE | 2020-07-26 10:19 | PM.IMPN ---
Progress Note: A&P Assessment and Plan (1) Pneumonia due to COVID-19 virus: Code(s): U07.1 - COVID-19; J12.89 - Other viral pneumonia Status: Acute Assessment and Plan: Patient tested positive 07/16/20 -she is currently on 1L of oxygen and appears stable--improved from yesterday -she has been utilizing the spirometer and is not able to take deeper breaths -Remdesivir started 07/23/20 since her liver enzymes have improved, will monitor these. They are stable -continue dexamethasone and Lovenox -Continue supportive care with Tylenol for fevers, albuterol MDI, tessalon perles, incentive spirometer, supplementation of Zinc, vitamins C and D. -chest x-ray improved -hopefully we can do a home oxygen evaluation in 1-2 days and discharge (2) Acute respiratory failure with hypoxia: Code(s): J96.01 - Acute respiratory failure with hypoxia Status: Acute Assessment and Plan: Secondary to above -Continue supplemental O2 and wean as tolerated to keep O2 saturations > 90%. 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 Diabetes mellitus complication status: with hyperglycemia Qualified Code(s): E11.65 - Type 2 diabetes mellitus with hyperglycemia; Z79.4 - nursing home (current) use of insulin Code(s): E11.9 - Type 2 diabetes mellitus without complications Status: Chronic Assessment and Plan: Improving with adjustments, currently 179 -patient has a significant sliding scale at home and we will continue with a variation of that -monitor closely -continue Lantus at increased dose -last A1c 9.7 -normal anion gap -glucose likely worse because of steroids and acute illness (4) Elevated liver enzymes: Code(s): R74.8 - Abnormal levels of other serum enzymes Status: Acute Assessment and Plan: Elevated on arrival and improving -likely secondary to viral syndrome. -She denies any liver issues, did have very minimally elevated AST on labs earlier this year. -Monitor CMP, consider abdominal ultrasound if LFTs do not continue improve. (5) Diabetic peripheral neuropathy: Code(s): E11.42 - Type 2 diabetes mellitus with diabetic polyneuropathy Status: Chronic Assessment and Plan: Continue her Lyrica. -No acute issues today. (6) Irritable bowel syndrome: Qualifiers: Irritable bowel syndrome type: with diarrhea Qualified Code(s): K58.0 - Irritable bowel syndrome with diarrhea Code(s): K58.9 - Irritable bowel syndrome without diarrhea Status: Chronic Assessment and Plan: No acute issues. -She takes Bentyl as needed at home, continue this. Subjective Date/time seen: 07/26/20 10:19 Interval history: Pt is a 44-year-old female here for COVID-19 pneumonia. Patient was seen today and is doing better than yesterday. She is able to walk around the room and does not feel quite as short of breath. She is also able to hold longer phone conversations which she was unable to do a few days ago. She had some soft bowel movements this morning which is consistent with her IBS but nothing new. She is able to breathe deeper without coughing and has been using her spirometer. She is eating and drinking okay. She states her swelling has gotten better with the Lasix Exam Narrative: Exam Narrative: General: Well developed well nourished patient in NAD HEENT: normocephalic Neck: supple Neuro: Alert and oriented x4 CV:RRR Resp: Decreased breath sounds. She no longer coughs with deep breaths Abd: Soft, non distended. No pain to palpation. Positive bowel sounds Extremities: Slight swelling to the feet. No swelling to the lower extremities Objective Data Vital Signs Vital Signs: Vital Signs - 24 hr 07/25/20 11:30 07/25/20 12:00 07/25/20 16:00 Temperature 98.5 F 97.2 F L Pulse Rate 85 85 106 H Res
[2020-07-26 12:08] LABS: Glucose Point of Care 292 (65-105)
[2020-07-26 17:34] LABS: Glucose Point of Care 284 (65-105)
[2020-07-26] MEDS: POTASSIUM CHLORIDE 20 MEQ PACKET (FOR LIQUID) PO (18:01)
[2020-07-26] MEDS: REMDESIVIR 100 MG/NS 250 ML 100 MG/250 ML BAG 250 MG IVPB (19:05)
[2020-07-26] MEDS: INSULIN GLARGINE (*BKC) 100 UNITS/ML 60 UNITS SUB-Q (20:27)
[2020-07-26 20:35] LABS: Glucose Point of Care 281 (65-105)
[2020-07-27] VITALS (7 sets, daily range): BP systolic 139–165; BP diastolic 66–86; PULSE 60–103; RESP 16–20; TEMP 36.3–36.7; O2SAT 92–100; BMI 38.2
[2020-07-27 06:53] LABS: Potassium 3.2 mmol/L (3.4-5.0)
[2020-07-27 06:56] LABS: Alanine Aminotransferase 124 U/L (4-35); Alkaline Phosphatase 101 U/L (38-126); Anion Gap 7 mmol/L (8-16); Aspartate Amino Transferase 79 U/L (14-36); Bilirubin,Total 0.3 mg/dL (0.2-1.3); Blood Urea Nitrogen 14 mg/dL (7-17); Calcium 8.6 mg/dL (8.4-10.2); Carbon Dioxide 28 mmol/L (22-30); Chloride 107 mmol/L (98-107); Estimated CRCL calculation 151 ml/min; Estimated Glomerular Filt Rate > 60; Glucose 252 mg/dL (65-105); Magnesium 1.6 mg/dL (1.6-2.3); Sodium 142 mmol/L (137-145)
[2020-07-27 08:03] LABS: Glucose Point of Care 177 (65-105)
[2020-07-27] MEDS: INSULIN ASPART (*BKC) 100 UNITS/ML SUB-Q (08:12)
[2020-07-27] MEDS: DEXAMETHASONE 2 MG TABLET 6 MG PO (08:16)
[2020-07-27] MEDS: POTASSIUM CHLORIDE 20 MEQ PACKET (FOR LIQUID) 40 MEQ PO (08:16)
[2020-07-27] MEDS: ALBUTEROL SULFATE (*SP) AEROSOL 1 PUFF 4 PUFF INHALATION ×2 (08:16→12:42)
[2020-07-27] MEDS: BENZONATATE 100 MG CAPSULE PO (08:17)
[2020-07-27] MEDS: guaiFENesin 12 HR 600 MG TABCR PO (08:17)
[2020-07-27] MEDS: ENOXAPARIN 40 MG/0.4 ML SYRINGE SUB-Q (08:17)
[2020-07-27] MEDS: ASCORBIC ACID 500 MG TABLET PO (08:17)
[2020-07-27] MEDS: CHOLECALCIFEROL 1,000 UNITS TABLET 1000 UNITS PO (08:17)
[2020-07-27] MEDS: MAGNESIUM OXIDE 200 MG TABLET PO (08:17)
[2020-07-27] MEDS: ZINC SULFATE 220 MG CAPSULE PO (08:18)
[2020-07-27] MEDS: PREGABALIN (*CRX) 50 MG CAPSULE PO (08:18)
[2020-07-27] MEDS: REMDESIVIR 100 MG/NS 250 ML 100 MG/250 ML BAG 250 MG IVPB (09:15)
--- NOTE | 2020-07-27 11:21 | PCRCNOTE ---
HOME O2 EVALUATION COMPLETE; PT. DOES NOT REQUIRE HOME OXYGEN. VARGHESE SCOTT PA-C AND PT.'S R.N. BOTH NOTIFIED OF RESULTS.
[2020-07-27 11:45] LABS: Glucose Point of Care 222 (65-105)
--- NOTE | 2020-07-27 11:52 | PM.DS ---
DS: Admitting Diagnosis Admitting Diagnosis Admitting Diagnosis: COVID-19 pneumonia DS: Discharge Diagnosis Discharge Diagnosis (1) Pneumonia due to COVID-19 virus: Code(s): U07.1 - COVID-19; J12.89 - Other viral pneumonia Status: Acute Assessment and Plan: Patient tested positive 07/16/20 -patient received Remdesivir, Decadron and Lovenox throughout her stay -she required oxygen up until the day of discharge. 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 -She denies any liver issues, did have very minimally elevated AST on labs earlier this year. -she is to follow-up with her primary care physician about this once viral illness has resolved (5) Diabetic peripheral neuropathy: Code(s): E11.42 - Type 2 diabetes mellitus with diabetic polyneuropathy Status: Chronic Assessment and Plan: Continue her Lyrica. -No acute issues today. (6) Irritable bowel syndrome: Qualifiers: Irritable bowel syndrome type: with diarrhea Qualified Code(s): K58.0 - Irritable bowel syndrome with diarrhea Code(s): K58.9 - Irritable bowel syndrome without diarrhea Status: Chronic Assessment and Plan: No acute issues. -She takes Bentyl as needed at home, continue this. DS: Summary Hospital Course Reason for hospitalization: COVID-19 pneumonia Hospital Course: With a history of diabetes and COVID-19 who presented emergency room for significant shortness of breath and intermittent chest pain. Vitals in the ER were temperature 98.4?, pulse 111, respiratory rate 34, blood pressure 126/77, pulse ox 86 on room air. CBC within normal limits. BMP within normal limits with the exception of random glucose 317. Lactic acid 1.5. Troponin x1 was negative. No pulmonary emboli suspected and moderate to severe amount of COVID. Patient was admitted to the hospital service initially started on Lovenox and Decadron as well as supplemental oxygen. She was on this regimen for a few days and then started on Remdesivir. She started improving with this regimen and was able to be weaned off oxygen. Her liver enzymes were elevated but remained stable throughout her stay. Please see above for further details. Overall, the patient had significant improvement through her stay and was ready for discharge. She was educated about the worrisome signs and symptoms to come back to emergency room for and was discharged in stable condition Status at Discharge Functional status at discharge: independent ambulation Overall status at discharge: patient is progressing back to baseline Time Spent with Patient Time attestation: Total time spent providing and/or coordinating discharge serv
== END 2020-07-27 13:13 | disposition home or self-care (01) | DRG 177 ==
LOC: ANHED 18:45 → ANH3MEDSUR 07-23 01:48
PROVIDERS: Physician Assistant; Admitting Provider Internal Medicine; Emergency Provider General Practice; PCP Family Medicine; Visit Provider Physician Assistant
DX: U07.1 COVID-19 (principal); J12.89 Other viral pneumonia; J96.01 Acute respiratory failure with hypoxia; E11.9 Type 2 diabetes mellitus without complications; E11.42 Type 2 diabetes mellitus with diabetic polyneuropathy; Z79.4 Long term (current) use of insulin; K58.9 Irritable bowel syndrome, unspecified
CPT/HCPCS: 36415; 36600; 71045; 71275; 80048; 80053; 80076; 82010; 82375; 82728; 82805; 83036; 83050; 83605; 83615; 83735; 84443; 84460; 84484; 85025; 85027; 85610; 85730; 86140; 87040; 93005; 94618; 94640; 96361; 96374; 96375; 99285; A9270; J1100; J1650; J1815; J1940; J2405; J7030; J7120; J8540; Q9967

== ENCOUNTER 2020-09-19 06:35 | Outpatient (CLI) | payer BC, SELFPAY ==
--- NOTE | ~2020-09-19 | XR_ITS ---
EXAMINATION: XR chest 2V DATE: 09/19/2020 06:54 INDICATION: COVID 19 pneumonia, shortness of breath TECHNIQUE: PA and lateral views of the chest are obtained. COMPARISON: 07/25/2020 FINDINGS: There has been overall improvement in previously described bilateral airspace opacities. Mi nimal airspace opacity persists in the right lower lobe. There is no pleural effusion or pneumothorax . The cardiomediastinal silhouette is normal. The visualized bones and soft tissues are unremarkable. IMPRESSION: 1. Overall improvement in airspace opacities with mild persistent opacity of the right lower lobe, co nsistent with resolving COVID 19 pneumonia. Reviewed, dictated and finalized at location A. EXAMINER IMPRESSION: 1. Overall improvement in airspace opacities with mild persistent opacity of th e right lower lobe, consistent with resolving COVID 19 pneumonia.
== END 2020-09-19 06:36 | disposition home or self-care (01) ==
LOC: ANHIMG 06:42
PROVIDERS: PCP Family Medicine; Visit Provider Nurse Practitioner Family
DX: J18.9 Pneumonia, unspecified organism (principal); R06.02 Shortness of breath; R05 Cough; R91.8 Other nonspecific abnormal finding of lung field
CPT/HCPCS: 71046

== ENCOUNTER 2020-10-15 13:46 | Outpatient (CLI) | payer BC, SELFPAY | END 2020-10-15 13:47 | disposition home or self-care (01) | LOC: ANHCOVIDVC 13:46 | DX: Z23 Encounter for immunization (principal) | CPT/HCPCS: 0001A; 91300 ==

== ENCOUNTER 2020-11-05 13:45 | Outpatient (CLI) | payer BC, SELFPAY | END 2020-11-05 13:46 | disposition home or self-care (01) | LOC: ANHCOVIDVC 13:45 | DX: Z23 Encounter for immunization (principal) | CPT/HCPCS: 0002A; 91300 ==

== ENCOUNTER 2020-12-24 14:44 | Emergency (ER) | payer BC, SELFPAY ==
--- NOTE | 2020-12-24 14:47 | ED.LOWEXIN ---
HPI - Extremity Injury (Lower) General Chief Complaint: Extremity Injury, Lower Stated Complaint: Rt knee pain Time Seen by Provider: 12/24/20 14:46 Source: patient and RN notes reviewed Mode of arrival: ambulatory Limitations: no limitations History of Present Illness HPI Narrative: This is a 45-year-old female that presented to urgent care with complaints of right lateral koch pain. According to patient Wednesday she fell while at work on carpet. Patient notes that when she fell she heard a pop sound. Since her injury she has had a Feliz wrap around her knee and lower leg, she has also elevate her leg, used alcohol rubs and took ibuprofen prior to coming to .. Patient notes that her condition has not improved. She does have bilateral lower extremity edema, patient has a history of peripheral edema this is not new to her. She is able to move her extremities, has full range of motion, normal strength, sensation is present,pulses present, and able to bear weight, site is tender to palpation. Patient will be given pain medication along with a muscle relaxant. She was instructed to follow-up with her primary care physician if pain persist. She will possibly need a CT to identify muscle or ligament injury. The patient denies SOB, CP, palpitation, extremity numbness, lightheadedness, dizziness, constipation, diarrhea, chills, or fever. Related Data Home Medications Medication Instructions Recorded Confirmed dicyclomine 20 mg PO Q4H PRN MDD 120 07/21/20 12/24/20 insulin glargine 50 unit SUBCUT HS 07/21/20 12/24/20 insulin lispro See Rx Instructions .ROUTE .COMPLEX 07/21/20 12/24/20 pregabalin [Lyrica] 50 mg PO BID 07/21/20 12/24/20 atorvastatin 10 mg DAILY 12/24/20 12/24/20 losartan-hydrochlorothiazide 1 tablet DAILY 12/24/20 12/24/20 Allergies Allergy/AdvReac Type Severity Reaction Status Date / Time No Known Allergies Allergy Unknown Verified 07/21/20 16:39 Review of Systems Review of Systems: Narrative: A 14 organ system Review of Systems was performed and pertinent positives included in the HPI, otherwise remaining ROS is negative. [facility] Past Medical History Medical History (Updated 12/24/20 @ 15:14 by KVNG Chase) Diabetes mellitus Diabetic peripheral neuropathy Irritable bowel syndrome Surgical History Surgical History History of endometrial ablation Around 2006 History of shoulder surgery Left rotator cuff repair; October 2019 History of tubal ligation Around 2006 Hx of appendectomy Age [age] years old. Hx of cholecystectomy At age [age] years old. Family History Family History Mother Depression Heart disease Mother had multi-vessel CABG age 40s. Father Hypertension Family history of diabetes mellitus in first degree relative Diabetes mellitus Sibling No problems noted. Grandparent Malignant neoplasm of prostate, Onset Age: 68 Diabetes mellitus Other Acute myocardial infarction Social History Social History (Updated 07/22/20 @ 17:29 by Paola Mohan PA-C) Social History: Ms. Orona lives at home with her significant other in [place]. 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 She denies alcohol, tobacco, or other substance use. Her PCP is a nurse practitioner at Dr Bull's office. She designates her brother, Bran Gan, to be her surrogate decision maker. She is full code status confirmed 07/22/20. Smoking status: Never smoker Alcohol intake: never Substance use: never Gender identity (if verbalized by the patient): Female Spiritual care concerns: No Exam Narrative: Exam Narrative: GENERAL: This is a well-nourished, well-developed patient, in no apparent distress. HEAD: normocephalic, atraumatic. EYES: PERRL. Sclera clear/white. Vision is grossly intact. EARS: External ears normal, auditory canals clear and without d
[2020-12-24 14:54] VITALS: BP 131/80; PULSE 92; RESP 18; TEMP 36.6; O2SAT 99
[2020-12-24 14:55] VITALS: BP 131/80; PULSE 92; RESP 18; TEMP 36.6; O2SAT 99
== END 2020-12-24 15:15 | disposition home or self-care (01) ==
LOC: EXPTROY 14:46
PROVIDERS: Emergency Provider Nurse Practitioner; PCP Family Medicine
DX: M25.561 Pain in right knee (principal); S83.91XA Sprain of unspecified site of right knee, initial encounter; S86.911A Strain of unspecified muscle(s) and tendon(s) at lower leg level, right leg, initial encounter; W19.XXXA Unspecified fall, initial encounter; E11.42 Type 2 diabetes mellitus with diabetic polyneuropathy
CPT/HCPCS: 99213; G0463

== ENCOUNTER 2021-01-06 11:51 | Emergency (ER) | payer BC, SELFPAY ==
--- NOTE | 2021-01-06 12:02 | ED.EYEPROB ---
HPI - Eye Problem General Chief complaint: Eye Problems Stated complaint: Rt eye Time Seen by Provider: 01/06/21 11:53 Source: patient Mode of arrival: ambulatory Limitations: no limitations History of Present Illness HPI Narrative: 45-year-old female presents to [facility] with complaints of irritation, redness, tearing and yellow-colored drainage coming from right eye since yesterday. Patient reports that she felt that something was underneath her right contact that she removed her contact at that time. Patient denies visual changes, flashing lights, fever, body aches, chills, nausea, vomiting or diarrhea. Patient is established with a local delivery crew member. Patient denies injury to her eye. chief complaint: eye redness Onset (ago): day(s) (1) Duration: constant Location: right eye Eye Symptoms: redness Associated symptoms: none Treatments Prior to Arrival: none Related Data Home Medications Medication Instructions Recorded Confirmed dicyclomine 20 mg PO Q4H PRN MDD 120 07/21/20 01/06/21 insulin glargine 50 unit SUBCUT HS 07/21/20 01/06/21 insulin lispro See Rx Instructions .ROUTE .COMPLEX 07/21/20 01/06/21 pregabalin [Lyrica] 50 mg PO BID 07/21/20 01/06/21 atorvastatin 10 mg DAILY 12/24/20 01/06/21 losartan-hydrochlorothiazide 1 tablet DAILY 12/24/20 01/06/21 Allergies Allergy/AdvReac Type Severity Reaction Status Date / Time No Known Allergies Allergy Unknown Verified 07/21/20 16:39 Review of Systems Constitutional: Constitutional: Denies chills, Denies fatigue, Denies fever(s) and Denies weakness Eyes: Eyes: Denies change in vision Comments: Right eye irritation, sensitivity to light, tearing and yellow-colored drainage ENT: Denies dysphagia and Denies sore throat Cardiovascular: Cardiovascular: Denies chest pain, Denies rapid heart rate and Denies radiating jaw, neck or arm pain Respiratory: Respiratory: Denies chest congestion, Denies cough, Denies dyspnea and Denies wheezing Gastrointestinal: Gastrointestinal: Denies abdominal pain, Denies diarrhea, Denies nausea and Denies vomiting Integumentary/Breasts: Skin/Breast: Denies rash PMFSH Past Medical History Medical History Diabetes mellitus Diabetic peripheral neuropathy Irritable bowel syndrome Surgical History Surgical History History of endometrial ablation Around 2006 History of shoulder surgery Left rotator cuff repair; October 2019 History of tubal ligation Around 2006 Hx of appendectomy Age [age] years old. Hx of cholecystectomy At age [age] years old. Family History Family History Mother Depression Heart disease Mother had multi-vessel CABG age 40s. Father Hypertension Family history of diabetes mellitus in first degree relative Diabetes mellitus Sibling No problems noted. Grandparent Malignant neoplasm of prostate, Onset Age: 68 Diabetes mellitus Other Acute myocardial infarction Social History Social History Social History: Ms. Orona lives at home with her significant other in [place]. 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 She denies alcohol, tobacco, or other substance use. Her PCP is a nurse practitioner at Dr Bull's office. She designates her brother, Bran Gan, to be her surrogate decision maker. She is full code status confirmed 07/22/20. Smoking status: Never smoker Alcohol intake: never Substance use: never Gender identity (if verbalized by the patient): Female Spiritual care concerns: No Comments At time of signature, I agree with nursing past medical, surgical, social and family history. There is no relevant family history pertinent to the presenting complaint. Exam Const: General: no acute distress Nutritional Appearance: well nourished O
[2021-01-06 12:05] VITALS: BP 120/73; PULSE 98; RESP 18; TEMP 36.6; O2SAT 100
== END 2021-01-06 12:21 | disposition home or self-care (01) ==
PROVIDERS: Emergency Provider Nurse Practitioner Family; PCP Family Medicine
DX: H10.31 Unspecified acute conjunctivitis, right eye (principal); E11.42 Type 2 diabetes mellitus with diabetic polyneuropathy
CPT/HCPCS: 99213; A9270; G0463

== ENCOUNTER 2021-02-05 11:53 | Emergency (ER) | payer BC, SELFPAY ==
[2021-02-05 12:09] VITALS: BP 114/67; PULSE 104; RESP 20; TEMP 36.3; O2SAT 100
--- NOTE | 2021-02-05 12:21 | ED.URI ---
HPI - URI/Sore Throat General Chief Complaint: Upper Respiratory Infection Stated Complaint: cough Time Seen by Provider: 02/05/21 12:22 Source: patient and RN notes reviewed Mode of arrival: ambulatory Limitations: no limitations History of Present Illness HPI Narrative: 45-year-old female presents with concern for cough, chest congestion, nasal congestion, postnasal drainage. Reports symptoms started on Wednesday. She reports taking several [id number] medications including Mucinex, Zyrtec, Flonase with little relief. She denies fever, body aches, chills, sweats. Reports she had Covid in July and was hospitalized for pneumonia. She denies any loss of sense of taste or smell. MD elicited complaint: cough Related Data Home Medications Medication Instructions Recorded Confirmed insulin glargine 50 unit SUBCUT HS 07/21/20 02/05/21 insulin lispro See Rx Instructions .ROUTE .COMPLEX 07/21/20 02/05/21 pregabalin [Lyrica] 50 mg PO BID 07/21/20 02/05/21 atorvastatin 10 mg DAILY 12/24/20 02/05/21 losartan-hydrochlorothiazide 1 tablet DAILY 12/24/20 02/05/21 dicyclomine 20 mg PO DAILY 02/05/21 02/05/21 fluticasone propionate 50 mcg INTRANASAL DAILY 02/05/21 02/05/21 insulin aspart U-100 [Novolog 100 unit SUBCUT USEASDIRECTD 02/05/21 02/05/21 U-100 Insulin aspart] Allergies Allergy/AdvReac Type Severity Reaction Status Date / Time No Known Allergies Allergy Unknown Verified 02/05/21 11:56 Review of Systems Review of Systems: Narrative: CONSTITUTIONAL: Denies malaise, chills, sweats, or fever. EYES: Denies visual changes, redness, or discharge. ENT: Reports rhinorrhea, congestion. Denies sinus pain, otalgia and sore throat. CARDIOVASCULAR: Denies chest pain, palpitations, or edema. RESPIRATORY: Reports cough. Denies dyspnea. GASTROINTESTINAL: Denies abdominal pain, nausea, vomiting, diarrhea SKIN: Denies rash or itching. MUSCULOSKELETAL: Denies myalgia. NEUROLOGIC: Denies headache. All systems reviewed & are unremarkable except as noted in HPI and below PMFSH Past Medical History Medical History Diabetes mellitus Diabetic peripheral neuropathy Irritable bowel syndrome Surgical History Surgical History History of endometrial ablation Around 2006 History of shoulder surgery Left rotator cuff repair; October 2019 History of tubal ligation Around 2006 Hx of appendectomy Age [age] years old. Hx of cholecystectomy At age [age] years old. Family History Family History Mother Depression Heart disease Mother had multi-vessel CABG age 40s. Father Hypertension Family history of diabetes mellitus in first degree relative Diabetes mellitus Sibling No problems noted. Grandparent Malignant neoplasm of prostate, Onset Age: 68 Diabetes mellitus Other Acute myocardial infarction Social History Social History Social History: Ms. Orona lives at home with her significant other in [place]. 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 She denies alcohol, tobacco, or other substance use. Her PCP is a nurse practitioner at Dr Bull's office. She designates her brother, Bran Gan, to be her surrogate decision maker. She is full code status confirmed 07/22/20. Smoking status: Never smoker Alcohol intake: never Substance use: never Gender identity (if verbalized by the patient): Female Spiritual care concerns: No Comments At time of signature, agree with nursing past medical, surgical, social and family history. There is no relevant family history pertinent to the presenting complaint Exam Narrative: Exam Narrative: GENERAL: Well-appearing, well-nourished, and in no acute distress. HEAD: Normocephalic EYES: PERRLA, conjunctivae clear ENT: Nares clear, turbinates ed
== END 2021-02-05 12:45 | disposition home or self-care (01) ==
PROVIDERS: Emergency Provider Nurse Practitioner; PCP Family Medicine
DX: J32.9 Chronic sinusitis, unspecified (principal); J40 Bronchitis, not specified as acute or chronic; E11.42 Type 2 diabetes mellitus with diabetic polyneuropathy
CPT/HCPCS: 99213; G0463

== ENCOUNTER 2021-02-12 17:13 | Emergency (ER) | payer BC, SELFPAY ==
[2021-02-12 17:30] VITALS: BP 113/82; PULSE 108; RESP 20; TEMP 36.1; O2SAT 99
[2021-02-12 17:35] VITALS: BP 113/82; PULSE 108; RESP 20; TEMP 36.1; O2SAT 99
--- NOTE | 2021-02-12 17:50 | ED.GENADULT ---
HPI - General Adult General Chief complaint: Ear Stated complaint: Cough, Lt ear pain Source: patient Mode of arrival: ambulatory Limitations: no limitations History of Present Illness HPI narrative: Patient is a 45-year-old -[place]oc[place] female presents to the [facility] via POV for evaluation of upper respiratory symptoms that have been present for 8 days. She reports a productive cough, nasal drainage, sinus pain and pressure, and left ear pain. She reports sputum production is small in quantity and clear in color. Nasal drainage is yellow in color. Left ear pain is constant and sharp in nature. She reports pain to be 10 out of 10 on a pain scale. No relief with Mucinex. Nothing improves symptoms. Laying down worsens symptoms. Of note, patient reports she was prescribed sertraline and Flonase by her PCP without relief therefore, was seen in this urgent care 4 days later and prescribed a cough suppressant with codeine and prednisone without relief. She states she was tested for Covid on February 06, 2021 which was negative. Related Data Home Medications Medication Instructions Recorded Confirmed insulin glargine 50 unit SUBCUT HS 07/21/20 02/12/21 insulin lispro See Rx Instructions .ROUTE .COMPLEX 07/21/20 02/12/21 pregabalin [Lyrica] 50 mg PO BID 07/21/20 02/12/21 atorvastatin 10 mg DAILY 12/24/20 02/12/21 losartan-hydrochlorothiazide 1 tablet DAILY 12/24/20 02/12/21 dicyclomine 20 mg PO DAILY 02/05/21 02/12/21 fluticasone propionate 50 mcg INTRANASAL DAILY 02/05/21 02/12/21 insulin aspart U-100 [Novolog 100 unit SUBCUT USEASDIRECTD 02/05/21 02/12/21 U-100 Insulin aspart] Allergies Allergy/AdvReac Type Severity Reaction Status Date / Time No Known Allergies Allergy Unknown Verified 02/12/21 17:27 Review of Systems Review of Systems: Narrative: Denies history of COPD, bronchitis, asthma, and pneumonia. Denies fever, sweats, chills, change in appetite, fatigue, skin color changes, headache, dizziness, lymphadenopathy, severe persistent headaches, ear drainage, vertigo, hearing problems, chest pain, heart murmurs, heart palpitations, shortness of breath, wheezing, cyanosis, hemoptysis, hoarseness, orthopnea, pleuritic pain, nausea, vomiting, diarrhea, and myalgias. [facility]LY [facility], [facility] Past Medical History Medical History Diabetes mellitus Diabetic peripheral neuropathy Irritable bowel syndrome Surgical History Surgical History History of endometrial ablation Around 2006 History of shoulder surgery Left rotator cuff repair; October 2019 History of tubal ligation Around 2006 Hx of appendectomy Age [age] years old. Hx of cholecystectomy At age [age] years old. Family History Family History Mother Depression Heart disease Mother had multi-vessel CABG age 40s. Father Hypertension Family history of diabetes mellitus in first degree relative Diabetes mellitus Sibling No problems noted. Grandparent Malignant neoplasm of prostate, Onset Age: 68 Diabetes mellitus Other Acute myocardial infarction Social History Social History Social History: Ms. Orona lives at home with her significant other in [place]. 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 She denies alcohol, tobacco, or other substance use. Her PCP is a nurse practitioner at Dr Bull's office. She designates her brother, Bran Gan, to be her surrogate decision maker. She is full code status confirmed 07/22/20. Smoking status: Never smoker Alcohol intake: never Substance use: never Gender identity (if verbalized by the patient): Female Spiritual care concerns: No Exam Narrative: Exam Narrative: GENERAL: Well-appearing, well-nourished, and in no acute distress. Uncomfortable. HEAD: [place]
== END 2021-02-12 17:57 | disposition home or self-care (01) ==
PROVIDERS: Emergency Provider Nurse Practitioner Family; PCP Family Medicine
DX: J06.9 Acute upper respiratory infection, unspecified (principal); H66.92 Otitis media, unspecified, left ear; E11.42 Type 2 diabetes mellitus with diabetic polyneuropathy
CPT/HCPCS: 99213; G0463

== ENCOUNTER 2022-03-19 21:57 | Emergency (ER) | payer BC, SELFPAY ==
[2022-03-19] VITALS (7 sets, daily range): BP systolic 132–144; BP diastolic 69–80; PULSE 79–105; RESP 15–19; TEMP 36.3; O2SAT 97–100
--- NOTE | ~2022-03-19 | CT_ITS ---
EXAMINATION: CT abdomen pelvis w con DATE: 03/19/2022 23:01 INDICATION: Diarrhea. Abdominal pain. TECHNIQUE: Computed tomography (CT) of the abdomen and pelvis was performed with 100 mL Omnipaque 350 intravenous contrast. Automated exposure control and iterative reconstruction technique were employe d. The dose-length product was 1679.93 mGy-cm. COMPARISON: CT abdomen and pelvis 05/30/16 FINDINGS: The visualized portions of the lung bases are clear without pneumonia or pleural effusion. The heart size is normal. No pericardial effusion. The liver is normal. There are changes of cholecys tectomy. Calcifications in the spleen are consistent with old granulomatous disease. The pancreas, ad renal glands, and kidneys are normal. There are uterine fibroids measuring up to 7.3 cm. There is liq uid stool in the colon correlating with the symptom of diarrhea. The appendix is normal. There are no dilated loops of bowel. There are no pathologically enlarged lymph nodes. There is no free intraperi toneal fluid. There is mild thoracolumbar spondylosis. IMPRESSION: 1. Uterine fibroids. Reviewed, dictated and finalized at location A. IMPRESSION: 1. Uterine fibroids.
[2022-03-19 22:21] LABS: Basophils Percent Auto 0.2 % (0.2-1.2); Eosinophils Absolute Auto 1.2 K/mm3 (0-0.3); Eosinophils Percent Auto 9.5 % (0-4.4); Hematocrit 37.8 % (37.0-47.0); Hemoglobin 12.5 g/dL (12.0-15.0); Immature Granulocyte Absolute 0.03 K/mm3 (0.00-0.031); Immature Granulocyte Percent A 0.2 % (0-0.5); Lymphocytes Absolute Auto 4.31 K/mm3 (0.9-3.2); Lymphocytes Percent Auto 35.1 % (18.3-44.2); Mean Corpuscular HGB Conc 33.1 g/dl (32-36); Mean Corpuscular Hemoglobin 29.7 pg (26-34); Mean Corpuscular Volume 89.8 fl (80-100); Mean Platelet Volume 9.3 fl (7.4-10.4); Monocytes Absolute Auto 0.6 K/mm3 (0.1-0.6); Monocytes Percent Auto 4.6 % (2.6-8.5); Neutrophils Absolute Auto 6.2 K/mm3 (1.3-6.7); Neutrophils Percent Auto 50.4 % (45.5-73.1); Platelet Count Result 266 k/mm3 (150-375); Red Blood Count 4.21 M/mm3 (4.2-5.4); Red Cell Distribution Width 12.7 % (11.5-14.5); White Blood Count 12.3 K/mm3 (4.5-10.0)
--- NOTE | 2022-03-19 22:22 | ED.GENADULT ---
HPI - General Adult General Chief complaint: Nausea/Vomiting/Diarrhea Stated complaint: diarrhea Time Seen by Provider: 03/19/22 22:03 Source: RN notes reviewed History of Present Illness HPI narrative: Patient presents emergency room from home for diarrhea. Patient states symptoms began 5 days ago. States she has been having numerous episodes of diarrhea a day states that with that she does have abdominal cramping with the diarrhea but states otherwise other when she is having a bowel movement she has no pain she denies any fevers or chills nausea vomiting or any other symptoms she denies any recent antibiotic use Related Data Home Medications Medication Instructions Recorded Confirmed insulin glargine 100 unit/mL 50 unit subcut HS 07/21/20 02/12/21 subcutaneous cartridge insulin lispro 100 unit/mL See Rx Instructions .Route .COMPLEX 07/21/20 02/12/21 subcutaneous pen pregabalin 50 mg capsule (Lyrica) 50 mg PO BID 07/21/20 02/12/21 atorvastatin 10 mg tablet 10 mg DAILY 12/24/20 02/12/21 losartan 50 mg-hydrochlorothiazide 1 tablet DAILY 12/24/20 02/12/21 12.5 mg tablet dicyclomine 20 mg tablet 20 mg PO DAILY 02/05/21 02/12/21 fluticasone propionate 50 50 mcg intranasal DAILY 02/05/21 02/12/21 mcg/actuation nasal spray,suspension insulin aspart U-100 100 unit/mL 100 unit subcut USEASDIRECTD 02/05/21 02/12/21 subcutaneous solution (Novolog U-100 Insulin aspart) Allergies Allergy/AdvReac Type Severity Reaction Status Date / Time No Known Allergies Allergy Unknown Verified 03/19/22 22:02 Review of Systems Review of Systems: Gen.: Denies fevers or chills ENT: Denies congestion Respiratory: Denies shortness of breath or cough CV: Denies chest pain or palpitations GI: See HPI denies burning, urgency, frequency or hematuria Musculoskeletal: Denies back pain or muscle pain Neuro: Denies numbness, tingling, weakness or focal weakness Skin: Denies rash Except as documented, all other systems reviewed and negative PMFSH Past Medical History Medical History Diabetes mellitus Diabetic peripheral neuropathy Irritable bowel syndrome Surgical History Surgical History History of endometrial ablation Around 2006 History of shoulder surgery Left rotator cuff repair; October 2019 History of tubal ligation Around 2006 Hx of appendectomy Age [age] years old. Hx of cholecystectomy At age [age] years old. Family History Family History Mother Depression Heart disease Mother had multi-vessel CABG age 40s. Father Hypertension Family history of diabetes mellitus in first degree relative Diabetes mellitus Sibling No problems noted. Grandparent Malignant neoplasm of prostate, Onset Age: 68 Diabetes mellitus Other Acute myocardial infarction Social History Social History Social History: Ms. Orona lives at home with her significant other in [place]. 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 She denies alcohol, tobacco, or other substance use. Her PCP is a nurse practitioner at Dr Bull's office. She designates her brother, Bran Gan, to be her surrogate decision maker. She is full code status confirmed 07/22/20. Smoking status: Never smoker Alcohol intake: never Substance use: never Gender identity (if verbalized by the patient): Female Spiritual care concerns: No Exam Narrative: APPEARANCE: No acute distress, nontoxic, resting in bed EYES: EOMI HEENT: Normocephalic, atraumatic, OMM RESPIRATORY: No respiratory distress Clear to auscultation bilaterally with no rhonchi wheezing or rales. CARDIOVASCULAR: Regular rate and rhythm without murmurs rubs or gallops. ABDOMINAL: Soft, nontender, nondistended, no rebound or guarding MUSCULOSKE
[2022-03-19 22:26] LABS: Appearance Urine Cloudy (Clear); Bilirubin Urine Negative (Negative); Blood Urine 3+ (Negative); Color Urine Yellow (Yellow); Glucose Urine UA Negative (Negative); Ketones Urine Trace mg/dL (Negative); Leukocyte Esterase Ur 3+ LEU/UL (Negative); Nitrate Urine Positive (Negative); Protein Urine 1+ mg/dL (Negative); Specific Grav Ur >= 1.030 (1.001-1.035); Urobilinogen Urine 0.2 mg/dL (<2.0); pH Urine 5.5 (5.0-9.0)
[2022-03-19] MEDS: SODIUM CHLORIDE 0.9% IV 1,000 ML 999 ML IV CONT (22:29)
[2022-03-19 22:36] LABS: Add Urine Microscopic? YES; Bacteria Urine 4+ /hpf; Mucus Urine Rare /lpf; RBC Urine >75 /hpf (0-2); Squamous Epithelial Cell Urine Many /hpf (Few); WBC Clumps Urine Present /HPF; WBC Urine >75 /hpf
[2022-03-19 22:39] LABS: Alanine Aminotransferase 19 U/L (6-35); Albumin Level 4.1 g/dL (3.5-5.1); Alkaline Phosphatase 106 U/L (38-126); Anion Gap 11 mmol/L (8-16); Aspartate Amino Transferase 27 U/L (14-36); Bilirubin,Total 0.2 mg/dL (0.2-1.3); Blood Urea Nitrogen 19 mg/dL (7-17); Calcium 9.3 mg/dL (8.4-10.2); Carbon Dioxide 29 mmol/L (22-30); Chloride 100 mmol/L (98-107); Estimated CRCL calculation 95 ml/min; Estimated Glomerular Filt Rate > 60; Glucose 155 mg/dL (65-110); Lipase 18 U/L (23-300); Magnesium 1.4 mg/dL (1.6-2.3); Potassium 3.7 mmol/L (3.4-5.0); Sodium 140 mmol/L (137-145)
[2022-03-19] MEDS: MAGNESIUM SULF 2 GM/WATER 50ML 2 GM/50 ML BAG IVPB (23:05)
[2022-03-20] VITALS: PULSE 75; RESP 13; O2SAT 97
[2022-03-20 00:24] VITALS: BP 126/72; PULSE 88; RESP 17; O2SAT 99
== END 2022-03-20 00:25 | disposition home or self-care (01) ==
PROVIDERS: Emergency Provider Emergency Medicine; PCP Family Medicine
DX: R19.7 Diarrhea, unspecified (principal); N39.0 Urinary tract infection, site not specified; E83.42 Hypomagnesemia; E11.42 Type 2 diabetes mellitus with diabetic polyneuropathy; Z79.4 Long term (current) use of insulin; D25.9 Leiomyoma of uterus, unspecified
CPT/HCPCS: 36415; 74177; 80053; 81001; 81025; 83690; 83735; 85025; 87077; 87086; 87186; 96361; 96365; 96367; 99284; J0696; J3475; J7030; Q9967

== ENCOUNTER 2022-04-25 06:19 | Emergency (ER) | payer BC, SELFPAY ==
--- NOTE | ~2022-04-25 | XR_ITS ---
EXAMINATION: XR chest 1V portable 04/25/2022 07:51 INDICATION: Cough PROCEDURE: AP portable chest COMPARISON: Comparison to multiple prior studies sequentially, with oldest reviewed study dated 03/14. FINDINGS: The lungs are clear. The cardiomediastinal silhouette is within normal limits. There are no pleural effusions. There is no pneumothorax suspected. IMPRESSION: 1: NO ACUTE CARDIOPULMONARY DISEASE. Reviewed, dictated and finalized at location A.
[2022-04-25 06:23] VITALS: BP 154/74; PULSE 97; RESP 18; TEMP 36.1; O2SAT 100
[2022-04-25 06:30] VITALS: PULSE 98
--- NOTE | 2022-04-25 06:41 | ECG_ITS ---
Measurements Intervals [place] Rate: 92 P: 82 UT: 169 QRS: 36 QRSD: 78 T: -11 QT: 324 QTc: 403 Interpretive Statements SINUS RHYTHM DELAYED PRECORDIAL R/S TRANSITION BORDERLINE T WAVE ABNORMALITY- ANTERIOR LEADS BASELINE ARTIFACT- I, II, III, AVR, AVL, AVF, V1-V6 BORDERLINE ECG COMPARED TO ECG 07/21/2020 17:26:51 HEART RATE HAS DECREASED Electronically Signed On 04-25-2022 8:52:44 CDT by Jeramie Mario D.O.
--- NOTE | 2022-04-25 06:58 | ED.SOB ---
HPI - SOB/Dyspnea General Chief Complaint: Shortness of Breath/Dyspnea Stated Complaint: SOB Time Seen by Provider: 04/25/22 06:22 History of Present Illness HPI Narrative: Patient is a 46-year-old female who presents ER with multiple complaints. Main complaint is that she has had cough for 3 days. No sinus congestion or sore throat. Cough is caused her some central chest pain and occasionally cause her nausea. No fevers or chills or sweats. No known sick contacts. She does cough up clear phlegm. Patient reports some central chest pain related to the coughing and when she bends over and twists. Related Data Home Medications Medication Instructions Recorded Confirmed insulin glargine 100 unit/mL 50 unit subcut HS 07/21/20 02/12/21 subcutaneous cartridge insulin lispro 100 unit/mL See Rx Instructions .Route .COMPLEX 07/21/20 02/12/21 subcutaneous pen pregabalin 50 mg capsule (Lyrica) 50 mg PO BID 07/21/20 02/12/21 atorvastatin 10 mg tablet 10 mg DAILY 12/24/20 02/12/21 losartan 50 mg-hydrochlorothiazide 1 tablet DAILY 12/24/20 02/12/21 12.5 mg tablet dicyclomine 20 mg tablet 20 mg PO DAILY 02/05/21 02/12/21 fluticasone propionate 50 50 mcg intranasal DAILY 02/05/21 02/12/21 mcg/actuation nasal spray,suspension insulin aspart U-100 100 unit/mL 100 unit subcut USEASDIRECTD 02/05/21 02/12/21 subcutaneous solution (Novolog U-100 Insulin aspart) Allergies Allergy/AdvReac Type Severity Reaction Status Date / Time No Known Allergies Allergy Unknown Verified 04/25/22 06:20 Review of Systems Review of Systems: All systems reviewed & are unremarkable except as noted in HPI and below Constitutional: Constitutional: Denies chills, Denies fatigue and Denies fever(s) ENT: Denies nasal congestion and Denies sore throat Cardiovascular: Cardiovascular: Reports chest pain, Denies rapid heart rate and Denies radiating jaw, neck or arm pain Respiratory: Respiratory: Reports cough, Reports dyspnea and Denies wheezing Gastrointestinal: Gastrointestinal: Denies abdominal pain, Reports heartburn, Denies nausea and Denies vomiting PMFSH Past Medical History Medical History Diabetes mellitus Diabetic peripheral neuropathy Irritable bowel syndrome Surgical History Surgical History History of endometrial ablation Around 2006 History of shoulder surgery Left rotator cuff repair; October 2019 History of tubal ligation Around 2006 Hx of appendectomy Age [age] years old. Hx of cholecystectomy At age [age] years old. Family History Family History Mother Depression Heart disease Mother had multi-vessel CABG age 40s. Father Hypertension Family history of diabetes mellitus in first degree relative Diabetes mellitus Sibling No problems noted. Grandparent Malignant neoplasm of prostate, Onset Age: 68 Diabetes mellitus Other Acute myocardial infarction Social History Social History Social History: Ms. Orona lives at home with her significant other in [place]. 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 She denies alcohol, tobacco, or other substance use. Her PCP is a nurse practitioner at Dr Bull's office. She designates her brother, Bran Gan, to be her surrogate decision maker. She is full code status confirmed 07/22/20. Smoking status: Never smoker Alcohol intake: never Substance use: never Gender identity (if verbalized by the patient): Female Spiritual care concerns: No Exam Narrative: GENERAL: Well-appearing, well-nourished, and in no acute distress. HEAD: Normocephalic, atraumatic. EYES: PERRL and EOMI. CHEST: Clear to auscultation. No respiratory distress. HEART: Regular rate and rhythm. Normal peripheral pulses. ABDOMEN: Soft,
[2022-04-25 07:06] VITALS: BP 148/82; PULSE 96; RESP 20; O2SAT 99
[2022-04-25 07:21] LABS: Anion Gap 13 mmol/L (8-16); Blood Urea Nitrogen 15 mg/dL (7-17); Calcium 8.7 mg/dL (8.4-10.2); Carbon Dioxide 25 mmol/L (22-30); Chloride 104 mmol/L (98-107); Estimated CRCL calculation 137 ml/min; Estimated Glomerular Filt Rate > 60; Glucose 201 mg/dL (65-110); Lipase 68 U/L (23-300); Potassium 3.6 mmol/L (3.4-5.0); Sodium 142 mmol/L (137-145)
[2022-04-25 07:33] LABS: Troponin I < 0.012 ng/mL (0.000-0.034)
[2022-04-25 07:38] LABS: Basophils Percent Auto 0.3 % (0.2-1.2); Eosinophils Absolute Auto 0.2 K/mm3 (0-0.3); Eosinophils Percent Auto 2.9 % (0-4.4); Hematocrit 33.8 % (37.0-47.0); Hemoglobin 11.2 g/dL (12.0-15.0); Immature Granulocyte Absolute 0.01 K/mm3 (0.00-0.031); Immature Granulocyte Percent A 0.1 % (0-0.5); Lymphocytes Absolute Auto 3.38 K/mm3 (0.9-3.2); Lymphocytes Percent Auto 43.2 % (18.3-44.2); Mean Corpuscular HGB Conc 33.1 g/dl (32-36); Mean Corpuscular Volume 90.6 fl (80-100); Mean Platelet Volume 9.9 fl (7.4-10.4); Monocytes Absolute Auto 0.5 K/mm3 (0.1-0.6); Monocytes Percent Auto 6.4 % (2.6-8.5); Neutrophils Absolute Auto 3.7 K/mm3 (1.3-6.7); Neutrophils Percent Auto 47.1 % (45.5-73.1); Platelet Count Result 251 k/mm3 (150-375); Red Blood Count 3.73 M/mm3 (4.2-5.4); Red Cell Distribution Width 12.6 % (11.5-14.5); White Blood Count 7.8 K/mm3 (4.5-10.0)
[2022-04-25 07:44] LABS: SARS-CoV-2 RNA PCR Negative
[2022-04-25 08:01] VITALS: BP 137/70; PULSE 88; RESP 17; O2SAT 100
[2022-04-25 09:01] VITALS: BP 146/80; PULSE 75; RESP 13; O2SAT 100
[2022-04-25 09:50] VITALS: BP 146/80; PULSE 77; RESP 16; O2SAT 99
== END 2022-04-25 09:50 | disposition home or self-care (01) ==
PROVIDERS: Emergency Provider Emergency Medicine; PCP Family Medicine
DX: B34.9 Viral infection, unspecified (principal); Z20.822 Contact with and (suspected) exposure to COVID-19; E11.42 Type 2 diabetes mellitus with diabetic polyneuropathy; K58.9 Irritable bowel syndrome, unspecified; Z79.4 Long term (current) use of insulin
CPT/HCPCS: 36415; 71045; 80048; 83690; 84484; 85025; 93005; 99284; C9803; U0003; U0005

== ENCOUNTER 2022-12-08 18:01 | Emergency (ER) | payer BC, SELFPAY ==
[2022-12-08 18:36] VITALS: BP 140/87; PULSE 83; RESP 16; TEMP 36.3; O2SAT 99
--- NOTE | 2022-12-08 19:12 | ED.FEMALEGU ---
HPI - Female Genitourinary General Chief complaint: Urogenital-Female Stated complaint: uti symptoms Time Seen by Provider: 12/08/22 19:12 Source: patient and RN notes reviewed Mode of arrival: ambulatory Limitations: no limitations History of Present Illness HPI Narrative: 47-year-old female presented for complaint of urinary frequency urgency, hematuria, and suprapubic pressure with urination for about 4 days. Reports occasional nausea. She denies abdominal pain, flank pain, vomiting, diarrhea, vaginal discharge or concern for STD, fevers or chills. Patient has a history of diabetes and reports it is well controlled. She has not taken anything [id number] for her symptoms. She has increased her water intake. Related Data Home Medications Medication Instructions Recorded Confirmed insulin glargine 100 unit/mL 50 unit subcut HS 07/21/20 12/08/22 subcutaneous cartridge insulin lispro 100 unit/mL See Rx Instructions .Route .COMPLEX 07/21/20 12/08/22 subcutaneous pen pregabalin 50 mg capsule (Lyrica) 50 mg PO BID 07/21/20 12/08/22 insulin aspart U-100 100 unit/mL 100 unit subcut USEASDIRECTD 02/05/21 12/08/22 subcutaneous solution (Novolog U-100 Insulin aspart) Allergies Allergy/AdvReac Type Severity Reaction Status Date / Time No Known Allergies Allergy Unknown Verified 12/08/22 18:54 Review of Systems Review of Systems: CONSTITUTIONAL: Denies body aches, fever, chills, or sweats. CARDIOVASCULAR: Denies chest pain, palpitations, or edema. RESPIRATORY: Denies cough or dyspnea. GASTROINTESTINAL: Denies abdominal pain, nausea, vomiting, or diarrhea. GENITOURINARY: Reports dysuria, frequency, urgency, hematuria, denies flank pain SKIN: Denies rash, itching, or wounds. MUSCULOSKELETAL: Denies back pain or myalgia. [facility] Past Medical History Medical History Diabetes mellitus Diabetic peripheral neuropathy Irritable bowel syndrome Surgical History Surgical History History of endometrial ablation Around 2006 History of shoulder surgery Left rotator cuff repair; October 2019 History of tubal ligation Around 2006 Hx of appendectomy Age [age] years old. Hx of cholecystectomy At age [age] years old. Family History Family History Mother Depression Heart disease Mother had multi-vessel CABG age 40s. Father Hypertension Family history of diabetes mellitus in first degree relative Diabetes mellitus Sibling No problems noted. Grandparent Malignant neoplasm of prostate, Onset Age: 68 Diabetes mellitus Other Acute myocardial infarction Social History Social History Social History: Ms. Orona lives at home with her significant other in [place]. 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 She denies alcohol, tobacco, or other substance use. Her PCP is a nurse practitioner at Dr Bull's office. She designates her brother, Bran Gan, to be her surrogate decision maker. She is full code status confirmed 07/22/20. Smoking status: Never smoker Alcohol intake: never Substance use: never Gender identity (if verbalized by the patient): Female Spiritual care concerns: No Comments At time of signature, I have reviewed and agree with nursing past medical, surgical, social and family history unless otherwise noted. Please see nursing chart for further information. There is no relevant family history pertinent to the presenting complaint Exam Narrative: GENERAL: Well-appearing and in no acute distress. CHEST: No respiratory distress. Clear to auscultation. HEART: Regular rate and rhythm. ABDOMEN: Soft, nontender, nondistended, normal active bowel sounds. No CVA tenderness MUSCULOSKELETAL: No bony tenderness. SKIN: Warm, dry, no abhishek
== END 2022-12-08 19:22 | disposition home or self-care (01) ==
PROVIDERS: Emergency Provider Nurse Practitioner Family; PCP Family Medicine
DX: N39.0 Urinary tract infection, site not specified (principal); E11.42 Type 2 diabetes mellitus with diabetic polyneuropathy; Z79.4 Long term (current) use of insulin
CPT/HCPCS: 81003; 87077; 87086; 87186; 99213; G0463

== ENCOUNTER 2023-07-15 08:40 | Emergency (ER) | payer OTHER, BC, SELFPAY ==
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
--- NOTE | ~2023-07-15 | CT_ITS ---
Noncontrast CT scan of the cervical spine Technique: Multiple contiguous axial [address] images of the cervical spine were obtained and rec onstructed in 2D sagittal and coronal planes on the acquisition scanner. Dose reduction technique was used on this scan by utilizing automated exposure control, adjustment of the mA and/or kV according to patient size. The dose-length product (DLP) was 555.50 mGy-cm. Clinical History: Pain Findings: No fractures or dislocations. Unremarkable visualized bony structures. There is mild dege nerative disc change at C5-C6 and C6-C7. No prevertebral soft tissue swelling. Impression: No fracture or subluxation of the cervical spine. Reviewed, dictated and finalized at location . N CONTROLLER Impression: No fracture or subluxation of the cervical spine.
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
--- NOTE | ~2023-07-15 | XR_ITS ---
EXAMINATION: XR knee LT 3V DATE: 07/15/2023 11:37 INDICATION: Left knee pain TECHNIQUE: Three views of the left knee were obtained. COMPARISON: 05/21/2010 FINDINGS: Alignment is normal. No fracture or osteochondral lesion. There is mild tricompartmental os teoarthritis characterized by tiny marginal osteophytes. No joint effusion/synovitis. There is infra patellar anterior soft tissue swelling of the knee. IMPRESSION: 1. No acute osseous abnormality. Reviewed, dictated and finalized at location L. [facility]
[2023-07-15 08:42] VITALS: BP 167/99; PULSE 96; RESP 14; TEMP 36.8; O2SAT 100
[2023-07-15 09:02] VITALS: BP 148/98; PULSE 94; RESP 17; O2SAT 98
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
[2023-07-15] MEDS: CYCLOBENZAPRINE HCL 10 MG TABLET PO (10:41)
[2023-07-15] MEDS: HYDROmorphone HCL INJ (*CRX) 1 MG/ML SYR 0.5 MG IV PUSH (10:58)
[2023-07-15 11:07] LABS: Basophils Percent Auto 0.2 % (0.2-1.2); Eosinophils Absolute Auto 0.1 K/mm3 (0-0.3); Eosinophils Percent Auto 1.1 % (0-4.4); Hematocrit 41.4 % (37.0-47.0); Hemoglobin 13.7 g/dL (12.0-15.0); Immature Granulocyte Absolute 0.01 K/mm3 (0.00-0.031); Immature Granulocyte Percent A 0.1 % (0-0.5); Lymphocytes Absolute Auto 2.75 K/mm3 (0.9-3.2); Lymphocytes Percent Auto 32.7 % (18.3-44.2); Mean Corpuscular HGB Conc 33.1 g/dl (32-36); Mean Corpuscular Hemoglobin 29.6 pg (26-34); Mean Corpuscular Volume 89.4 fl (80-100); Monocytes Absolute Auto 0.3 K/mm3 (0.1-0.6); Monocytes Percent Auto 3.3 % (2.6-8.5); Neutrophils Absolute Auto 5.3 K/mm3 (1.3-6.7); Neutrophils Percent Auto 62.6 % (45.5-73.1); Platelet Count Result 325 k/mm3 (150-375); Red Blood Count 4.63 M/mm3 (4.2-5.4); Red Cell Distribution Width 11.8 % (11.5-14.5); White Blood Count 8.4 K/mm3 (4.5-10.0)
[2023-07-15 11:20] LABS: Estimated CRCL calculation 112 ml/min; Estimated Glomerular Filt Rate > 60
[2023-07-15 11:22] LABS: Alanine Aminotransferase 27 U/L (6-35); Albumin Level 4.4 g/dL (3.5-5.1); Alkaline Phosphatase 120 U/L (38-126); Anion Gap 10 mmol/L (8-16); Aspartate Amino Transferase 31 U/L (14-36); Bilirubin,Total 0.5 mg/dL (0.2-1.3); Blood Urea Nitrogen 13 mg/dL (7-17); Calcium 9.5 mg/dL (8.4-10.2); Carbon Dioxide 26 mmol/L (22-30); Chloride 102 mmol/L (98-107); Estimated CRCL calculation 127 ml/min; Estimated Glomerular Filt Rate > 60; Glucose 403 mg/dL (65-110); Potassium 4.1 mmol/L (3.4-5.0); Sodium 138 mmol/L (137-145)
[2023-07-15 12:33] VITALS: BP 142/89; PULSE 90; RESP 19; O2SAT 98
== END 2023-07-15 12:34 | disposition home or self-care (01) ==
PROVIDERS: Emergency Provider Emergency Medicine; PCP Family Medicine
DX: S89.92XA Unspecified injury of left lower leg, initial encounter (principal); R07.9 Chest pain, unspecified; R10.9 Unspecified abdominal pain; E11.42 Type 2 diabetes mellitus with diabetic polyneuropathy; K58.9 Irritable bowel syndrome, unspecified; Z90.49 Acquired absence of other specified parts of digestive tract; Z79.4 Long term (current) use of insulin; Z79.84 Long term (current) use of oral hypoglycemic drugs; K44.9 Diaphragmatic hernia without obstruction or gangrene; D25.9 Leiomyoma of uterus, unspecified; V47.6XXA Car passenger injured in collision with fixed or stationary object in traffic accident, initial encounter
CPT/HCPCS: 36415; 70450; 71275; 72125; 73562; 74174; 80053; 85025; 96374; 99284; A9270; J1170; Q9967

== ENCOUNTER 2023-07-17 18:50 | Emergency (ER) | payer BC, OTHER, SELFPAY ==
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
[2023-07-17 18:58] VITALS: BP 144/92; PULSE 97; RESP 18; TEMP 35.7; O2SAT 100
== END 2023-07-17 19:16 | disposition home or self-care (01) ==
PROVIDERS: Emergency Provider Nurse Practitioner Family; PCP Family Medicine
DX: S16.1XXA Strain of muscle, fascia and tendon at neck level, initial encounter (principal); S39.012A Strain of muscle, fascia and tendon of lower back, initial encounter; S39.011A Strain of muscle, fascia and tendon of abdomen, initial encounter; V47.5XXA Car driver injured in collision with fixed or stationary object in traffic accident, initial encounter; E11.42 Type 2 diabetes mellitus with diabetic polyneuropathy; Z79.4 Long term (current) use of insulin
CPT/HCPCS: 99213; G0463

== ENCOUNTER 2023-10-19 15:29 | Emergency (ER) | payer BC, SELFPAY ==
--- NOTE | 2023-10-19 15:35 | ED.NAVMDI ---
HPI - Nausea/Vomiting/Diarrhea General Chief complaint: Nausea/Vomiting/Diarrhea Stated complaint: Diarrhea Source: patient and RN notes reviewed Mode of arrival: ambulatory Limitations: no limitations History of Present Illness HPI Narrative: 48-year-old female presents with concern for diarrhea for 3 days. Reports 7 diarrhea multiple times daily with nausea. She denies vomiting. She denies abdominal pain. Reports she has had a headache. She denies nasal congestion, rhinorrhea, cough, sore throat, abdominal pain. She reports she has been taking Pepto-Bismol MD elicited complaint: nausea and diarrhea Related Data Home Medications Medication Instructions Recorded Confirmed insulin glargine 100 unit/mL 50 unit subcut HS 07/21/20 07/15/23 subcutaneous cartridge insulin lispro 100 unit/mL See Rx Instructions .Route .COMPLEX 07/21/20 07/15/23 subcutaneous pen pregabalin 50 mg capsule (Lyrica) 50 mg PO BID 07/21/20 07/15/23 insulin aspart U-100 100 unit/mL 100 unit subcut USEASDIRECTD 02/05/21 07/15/23 subcutaneous solution (Novolog U-100 Insulin aspart) Rybelsus 3 mg PO DAILY 07/15/23 07/15/23 Allergies Allergy/AdvReac Type Severity Reaction Status Date / Time No Known Allergies Allergy Unknown Verified 07/15/23 08:54 Review of Systems Review of Systems: CONSTITUTIONAL: Denies malaise, chills, sweats, or fever. ENT: Denies rhinorrhea, congestion, sinus pain, otalgia or sore throat. CARDIOVASCULAR: Denies chest pain, palpitations, or edema. RESPIRATORY: Denies cough or dyspnea. GASTROINTESTINAL: Denies abdominal pain, vomiting, bloody, or mucous stools.. Reports nausea and diarrhea GENITOURINARY: Denies dysuria or hematuria. MUSCULOSKELETAL: Denies myalgia. NEUROLOGIC: Reports headache. All systems reviewed & are unremarkable except as noted in HPI and below PMFSH Past Medical History Medical History Diabetes mellitus Diabetic peripheral neuropathy Irritable bowel syndrome Surgical History Surgical History History of endometrial ablation Around 2006 History of shoulder surgery Left rotator cuff repair; October 2019 History of tubal ligation Around 2006 Hx of appendectomy Age [age] years old. Hx of cholecystectomy At age [age] years old. Family History Family History Mother Depression Heart disease Mother had multi-vessel CABG age 40s. Father Hypertension Family history of diabetes mellitus in first degree relative Diabetes mellitus Sibling No problems noted. Grandparent Malignant neoplasm of prostate, Onset Age: 68 Diabetes mellitus Other Acute myocardial infarction Social History Social History Social History: Ms. Orona lives at home with her significant other in [place]. 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 She denies alcohol, tobacco, or other substance use. Her PCP is a nurse practitioner at Dr Bull's office. She designates her brother, Bran Gan, to be her surrogate decision maker. She is full code status confirmed 07/22/20. Smoking status: Never smoker Alcohol intake: never Substance use: never Gender identity (if verbalized by the patient): Female Spiritual care concerns: No Comments At time of signature, agree with nursing past medical, surgical, social and family history. There is no relevant family history pertinent to the presenting complaint Exam Narrative: GENERAL: Well-appearing, well-nourished, and in no acute distress. HEAD: Normocephalic, atraumatic. EYES: PERRLA, conjunctivae clear, and EOMI. ENT: Nares clear, turbinates pink, no rhinorrhea or epistaxis. Mucous membranes moist. Oropharynx without edema, erythema, or lesions. Tonsils not enlarged and without exudate. NECK: Supple.
[2023-10-19 15:37] VITALS: BP 124/74; PULSE 95; RESP 16; TEMP 36.4; O2SAT 100
== END 2023-10-19 15:58 | disposition home or self-care (01) ==
PROVIDERS: Emergency Provider Nurse Practitioner; PCP Family Medicine
DX: R19.7 Diarrhea, unspecified (principal); E11.42 Type 2 diabetes mellitus with diabetic polyneuropathy; Z79.4 Long term (current) use of insulin
CPT/HCPCS: 99213; G0463

== ENCOUNTER 2024-03-23 14:21 | Emergency (ER) | payer BC, SELFPAY ==
[2024-03-23 14:30] VITALS: BP 150/94; PULSE 81; RESP 18; TEMP 36.4; O2SAT 98
[2024-03-23 14:32] VITALS: BP 150/94; PULSE 81; RESP 18; TEMP 36.4; O2SAT 98
--- NOTE | 2024-03-23 14:39 | ED.HA ---
HPI - Headache General Chief Complaint: Headache Stated Complaint: migraine Time Seen by Provider: 03/23/24 14:45 Source: patient, RN notes reviewed and old records reviewed Mode of arrival: ambulatory Limitations: no limitations History of Present Illness HPI Narrative: patient presents with complaints of headache, nausea, vomiting, body aches. She reports symptoms began suddenly while working at approximately 2:00 a.m.. Denies any injury or trauma. She reports multiple sick contacts. She denies any fever, chills, sweats. She reports pain in the face. She has taken Tylenol with poor relief. MD elicited complaint: migraine Onset description: suddenly Location: frontal Severity: severe Quality & Timing: aching Exacerbating factors: sitting/standing, light and noise Relieving factors: nothing Related Data Home Medications Medication Instructions Recorded Confirmed pregabalin 50 mg capsule (Lyrica) 50 mg PO BID 07/21/20 07/15/23 Rybelsus 3 mg PO DAILY 07/15/23 07/15/23 Allergies Allergy/AdvReac Type Severity Reaction Status Date / Time No Known Allergies Allergy Unknown Verified 03/23/24 14:31 Review of Systems Review of Systems: All systems reviewed & are unremarkable except as noted in HPI and below Constitutional: Constitutional: Reports no additional constitutional complaints, Reports body ache(s) and Reports headache(s) Eyes: Eyes: Reports blurry vision ENT: Reports system reviewed and no additional complaints, except as documented Cardiovascular: Cardiovascular: Reports no additional cardiovascular complaints Respiratory: Respiratory: Reports no additional respiratory complaints Gastrointestinal: Gastrointestinal: Reports no additional gastrointestinal complaints, Reports nausea and Reports vomiting PMFSH Past Medical History Medical History Diabetes mellitus Diabetic peripheral neuropathy Irritable bowel syndrome Surgical History Surgical History History of endometrial ablation Around 2006 History of shoulder surgery Left rotator cuff repair; October 2019 History of tubal ligation Around 2006 Hx of appendectomy Age [age] years old. Hx of cholecystectomy At age [age] years old. Family History Family History Mother Depression Heart disease Mother had multi-vessel CABG age 40s. Father Hypertension Family history of diabetes mellitus in first degree relative Diabetes mellitus Sibling No problems noted. Grandparent Malignant neoplasm of prostate, Onset Age: 68 Diabetes mellitus Other Acute myocardial infarction Social History Social History Social History: Ms. Orona lives at home with her significant other in [place]. 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 She denies alcohol, tobacco, or other substance use. Her PCP is a nurse practitioner at Dr Bull's office. She designates her brother, Bran Gan, to be her surrogate decision maker. She is full code status confirmed 07/22/20. Smoking status: Never smoker Alcohol intake: never Substance use: never Gender identity (if verbalized by the patient): Female Spiritual care concerns: No Exam Const: General: no acute distress, alert, awake and uncomfortable Orientation/consciousness: oriented to person, oriented to place and oriented to time HENMT: Head: normal to inspection Mouth: Yes moist mucous membranes Eyes: Alignment and Position: alignment normal Eyelids: eyelids normal Conjunctivae: conjunctivae normal EOM: EOMs intact bilaterally Resp: Effort & Inspection: normal respiratory effort and able to speak in complete sentences Auscultation: clear to auscultation bilaterally, no crackles, no rales, no rhonchi and no wheezes Cardio: Palpation: normal PMI Rate: r
[2024-03-23] MEDS: diphenhydrAMINE HCl CAP 25 MG CAPSULE 50 MG PO (14:47)
[2024-03-23] MEDS: ONDANSETRON HCL ODT 4 MG TABLET PO (14:47)
[2024-03-23] MEDS: KETOROLAC (*BKC) 60 MG/2 ML VIAL IM (14:48)
--- NOTE | 2024-03-23 15:13 | PC.NURSE ---
1512- Pt given saltine crackers and water for PO challenge
[2024-03-23 15:16] LABS: EDINFLUASCREEN Negative; EDINFLUBSCREEN Negative
== END 2024-03-23 15:39 | disposition home or self-care (01) ==
PROVIDERS: Emergency Provider Nurse Practitioner Family; PCP Family Medicine
DX: R51.9 Headache, unspecified (principal); R03.0 Elevated blood-pressure reading, without diagnosis of hypertension; E11.42 Type 2 diabetes mellitus with diabetic polyneuropathy; Z20.822 Contact with and (suspected) exposure to COVID-19
CPT/HCPCS: 87426; 87804; 96372; 99213; A9270; G0463; J1885

== ENCOUNTER 2024-08-08 13:10 | Emergency (ER) | payer BC, SELFPAY ==
--- NOTE | 2024-08-08 13:34 | ED_ITS ---
HPI - URI/Sore Throat General Chief Complaint: Upper Respiratory Infection Stated Complaint: COUGH/SOB/SINUS CONGESTION Time Seen by Provider: 08/08/24 13:34 Source: patient, RN notes reviewed and old records reviewed Mode of arrival: ambulatory Limitations: no limitations History of Present Illness HPI Narrative: 49-year-old female presents to the [facility] with a 3 day history of sinus congestion, rhinorrhea, cough. Has been drinking tea and taking Padmini-Geraldine as well as Related Data Home Medications ?Medication ?Instructions ?Recorded ?Confirmed ?Last Taken ?Type pregabalin 50 mg capsule (Lyrica) 50 mg PO BID 07/21/20 07/15/23 07/14/23 History Rybelsus 3 mg PO DAILY 07/15/23 07/15/23 07/15/23 History Allergies Allergy/AdvReac Type Severity Reaction Status Date / Time No Known Allergies Allergy Unknown Verified 08/08/24 13:26 Review of Systems Review of Systems: All systems reviewed & are unremarkable except as noted in HPI and below Constitutional: Constitutional: Reports no additional constitutional complaints ENT: Reports as per HPI and Reports nasal congestion Cardiovascular: Cardiovascular: Reports no additional cardiovascular complaints, Denies chest pain and Denies dyspnea Respiratory: Respiratory: Reports as per HPI, Reports chest congestion, Reports cough and Denies dyspnea Musculoskeletal: Musculoskeletal: Reports no additional musculoskeletal complaints Integumentary/Breasts: Skin/Breast: Reports system reviewed and no additional complaints, except as docu PMFSH Past Medical History Medical History Irritable bowel syndrome Diabetic peripheral neuropathy Diabetes mellitus Surgical History Surgical History History of shoulder surgery Left rotator cuff repair; October 2019 History of endometrial ablation Around 2006 History of tubal ligation Around 2006 Hx of cholecystectomy At age [age] years old. Hx of appendectomy Age [age] years old. Family History Family History Mother Depression Heart disease Mother had multi-vessel CABG age 40s. Father Hypertension Family history of diabetes mellitus in first degree relative Diabetes mellitus Sibling No problems noted. Grandparent Malignant neoplasm of prostate, Onset Age: 68 Diabetes mellitus Other Acute myocardial infarction Social History Social History Social History: Ms. Orona lives at home with her significant other in [place]. 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 She denies alcohol, tobacco, or other substance use. Her PCP is a nurse practitioner at Dr Bull's office. She designates her brother, Bran Gan, to be her surrogate decision maker. She is full code status confirmed 07/22/20. Smoking status: Never smoker Alcohol intake: never Substance use: never Gender identity (if verbalized by the patient): Female Spiritual care concerns: No Comments At the time of my signature, I reviewed and agree with the nursing past medical, surgical, social, and family history. There is no relevant family history pertinent to the patient complaint. Exam Const: General: cooperative, healthy appearing, comfortable, no acute distress, well developed, alert and well nourished Nutritional Appearance: well nourished Orientation/consciousness: patient oriented x3 Limitations: no limitations HENMT: Head: normal to inspection Ears: hearing grossly normal bilaterally, external ears normal, TM's normal bilaterally, EAC's normal, mastoids normal and no periauricular adenopathy Face/Nose/Sinus: Normal external nose present, Normal nares present and Nasal discharge present clear bilateral Mouth: Yes Normal oral and palatal mucosa present, Yes lip normal, Yes tongue normal and Yes moist mucous membranes Throat: posterior oropharynx normal, uvula midline, postnasal drainage and no uvular edema Eyes: General: appearance normal, both eyes and all related structures Alignment and Position: alignment normal Neck: Neck: normal visual inspection, full ROM, no lymphadenopathy and no meningeal signs Chest: Chest palpation & inspection: normal inspection of the chest Resp: Effort & Inspection: normal respiratory effort and able to speak in complete sentences Auscultation: clear to auscultation bilaterally, no crackles, no rales, no rhonchi and no wheezes Cardio: Rate: regular rate Skin: General skin exam: normal color and no rashes or lesions noted Neuro: General: patient oriented x3, gait normal, moves all extremities and no meningeal signs Cognition (Neuro): normal cognition Speech: normal speech Gait exam (Neuro): Normal gait present Extrem: General: normal to inspection, full ROM, capillary refill normal and normal gait Psych: Appearance: grossly normal and well kempt Mental Status: mental status grossly normal Speech and movement: Normal speech and movement present and Clear speech present Affect: normal affect Attitude: cooperative Course Course Level of Care: Express Care Visit Vital Signs Vital signs: Vital Signs Temperature 97.7 F 08/08/24 14:20 Pulse Rate 95 08/08/24 14:20 Respiratory Rate 16 08/08/24 14:20 Blood Pressure 177/86 H 08/08/24 14:20 Pulse Oximetry 100 08/08/24 14:20 Temperature 97.7 F 08/08/24 14:20 Pulse Rate 95 08/08/24 14:20 Respiratory Rate 16 08/08/24 14:20 Blood Pressure 177/86 H 08/08/24 14:20 Pulse Oximetry 100 08/08/24 14:20 Reviewed MDM - URI/Sore Throat MDM Narrative Medical decision making narrative: Patient sitting comfortably in exam room. Nontoxic, vitals stable. Patient presents with 3 day history of URI symptoms. Patient's flu and COVID negative. Only acute findings is clear rhinorrhea and postnasal drainage Patient appropriate for outpatient treatment and follow-up viral URI Discharge instructions reviewed with patient, as well as provided in writing per nursing staff. The instructions also include specific and strict return/GO TO THE ER as well as f/u information. All questions have been answered, and the patient deny any further questions with discharge and discharge plan. Some parts of this dictation were generated by voice recognition software and may contain typographical and/or grammatical inaccuracies. Lab Data Labs: Lab Results 08/08/24 Range/Units 13:40 POC Influenza A Ag Negative (Negative) POC Influenza B Ag Negative (Negative) POC SARS CoV-2 Ag Negative (Negative) Reviewed Critical Care Time Critical Care Time Critical Care Time: No Discharge Plan Discharge Clinical Impression: Upper respiratory infection Qualifiers: URI type: unspecified viral URI Qualified Code(s): J06.9 - Acute upper respiratory infection, unspecified Sinusitis Qualifiers: Sinusitis location: unspecified location Chronicity: acute Recurrence: not specified as recurrent Qualified Code(s): J01.90 - Acute sinusitis, unspecified Patient Disposition: Home, Self-Care Condition: Stable Instructions: Antibiotic Form, Upper Respiratory Infection (ED) Additional Instructions: Your rapid COVID test were negative Your rapid flu test was negative Your symptoms are likely due to a viral illness, which is not treated with antibiotics. Typically viral infections last 7-10 days, can linger for couple of weeks. It is very important to treat your symptoms. Drink plenty of water, Gatorade, Pedialyte, ice pops or Jell-O. -Alternate Tylenol and Motrin per package directions for fever or pain. You can alternate every 4 hours -Antihistamine medication such as Zyrtec/Claritin/Emiliana during the day can help improve symptoms. -doing daily nasal irrigations can help relieve pressure your sinuses. Things like a Neti pot -Use Flonase twice a day for 5 days then daily to help reduce the inflammation and dry up your sinuses. -You can also use Mucinex. Be sure to drink plenty of water with this medication at least 8 ounces with every dose and it is important to drink 8 to 10 glasses of water per day. Water is a natural decongestant -Eat and drink things that are easy to swallow, like tea or soup, or popsicles. -Oral rinses such as: Salt water gargles and/or may use topical anesthetic (eg. Chloraseptic spray) or lozenges to relieve dryness or throat pain). -Frequent hand washing or hand swing type lathe operator is one of the best ways to prevent spread of infection. -Using a vaporizer or humidifier at night will also help thin secretions and help with coughing up phlegm. -Follow up with primary care provider in 7-10 days if condition is not improving - For new or worsening symptoms go directly to the nearest ER Patient Language: Luxembourgish Prescriptions: No Action ondansetron 4 mg tablet,disintegrating 4 mg PO Q6H PRN (Reason: nausea and vomiting) Qty: 30 0RF naproxen 500 mg tablet,delayed release (DR/EC) 500 mg PO BID PRN (Reason: pain) Qty: 30 0RF hydroxyzine HCl 25 mg tablet 25 mg PO TID PRN (Reason: nausea and vomiting) Qty: 30 0RF Rybelsus 3 mg PO DAILY pregabalin [Lyrica] 50 mg Capsule 50 mg PO BID Rx Instructions: pt reports med is now PRN Follow-up/Referrals: Filipe Bull MD [Primary Care Provider] - 1 Week (express care follow up) Stand Alone Forms: Work/School Release IP Time of Disposition: 13:46
[2024-08-08 13:42] LABS: EDCOVIDSCREEN Negative (Negative); EDINFLUASCREEN Negative (Negative); EDINFLUBSCREEN Negative (Negative)
[2024-08-08 14:20] VITALS: BP 177/86; PULSE 95; RESP 16; TEMP 36.5; O2SAT 100
== END 2024-08-08 13:48 | disposition home or self-care (01) ==
PROVIDERS: Emergency Provider Nurse Practitioner; PCP Family Medicine
DX: J06.9 Acute upper respiratory infection, unspecified (principal); J01.90 Acute sinusitis, unspecified; Z20.822 Contact with and (suspected) exposure to COVID-19; E11.42 Type 2 diabetes mellitus with diabetic polyneuropathy; Z79.84 Long term (current) use of oral hypoglycemic drugs
CPT/HCPCS: 87426; 87804; 99212; G0463

== ENCOUNTER 2024-09-28 09:37 | Emergency (ER) | payer BC, SELFPAY ==
--- NOTE | 2024-09-28 09:40 | ED.URI ---
HPI - URI/Sore Throat General Chief Complaint: Upper Respiratory Infection Stated Complaint: Chest congestion, aches, coughing Time Seen by Provider: 09/28/24 09:41 Source: patient Mode of arrival: ambulatory Limitations: no limitations History of Present Illness HPI Narrative: Citlaly is a 49 year old female patient presenting to the clinic today with cough, chest congestion, sob, nasal congestion, diarrhea, scratchy throat, and body aches x3 days. Has felt feverish. States that there has been a lot of people sick at her work. MD elicited complaint: cough, sore throat, rhinorrhea, nasal congestion and other (Chest congestion, mild shortness of breath) Related Data Home Medications ?Medication ?Instructions ?Recorded ?Confirmed ?Last Taken ?Type pregabalin 50 mg capsule (Lyrica) 50 mg PO BID 07/21/20 07/15/23 07/14/23 History Rybelsus 3 mg PO DAILY 07/15/23 07/15/23 07/15/23 History semaglutide 1 mg/dose (4 mg/3 mL) mg subcut 09/28/24 Unknown History subcutaneous pen injector (Ozempic) Allergies Allergy/AdvReac Type Severity Reaction Status Date / Time No Known Allergies Allergy Unknown Verified 09/28/24 09:44 Review of Systems Review of Systems: Pertinent positives per HPI. Patient denies any rash, headache, visual changes, dizziness, chest pain, palpitations, nausea, vomiting, constipation, abdominal pain, or any urinary issues. [facility] Past Medical History Medical History Irritable bowel syndrome Diabetic peripheral neuropathy Diabetes mellitus Surgical History Surgical History History of shoulder surgery Left rotator cuff repair; October 2019 History of endometrial ablation Around 2006 History of tubal ligation Around 2006 Hx of cholecystectomy At age [age] years old. Hx of appendectomy Age [age] years old. Family History Family History Mother Depression Heart disease Mother had multi-vessel CABG age 40s. Father Hypertension Family history of diabetes mellitus in first degree relative Diabetes mellitus Sibling No problems noted. Grandparent Malignant neoplasm of prostate, Onset Age: 68 Diabetes mellitus Other Acute myocardial infarction Social History Social History Social History: Ms. Orona lives at home with her significant other in [place]. 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 She denies alcohol, tobacco, or other substance use. Her PCP is a nurse practitioner at Dr Bull's office. She designates her brother, Bran Gan, to be her surrogate decision maker. She is full code status confirmed 07/22/20. Smoking status: Never smoker Alcohol intake: never Substance use: never Gender identity (if verbalized by the patient): Female Spiritual care concerns: No Comments At the time of my signature, I reviewed and agree with the nursing past medical, surgical, social, and family history. There is no relevant family history pertinent to the patient complaint. Exam Narrative: General: Well-developed, well nourished, in no apparent distress Head: Normocephalic, atraumatic Eyes: Pupils equally round and reactive to light bilaterally, EOM intact, sclera and conjunctive clear, no discharge, lids normal Ears: TMs intact and congested, ear canals clear, no drainage, grossly hearing normal. Nose: Nares patent, clear nasal discharge, no inflammation, no sinus tenderness. Mouth: Oral pharynx without lesions or masses, good dentition, MMM. Postnasal drip Neck: Supple, trachea midline, no enlargement of anterior or posterior cervical nodes, no thyroid masses or goiter palpable. Cardio: Regular rate and rhythm, s1 and s2 normal, no murmur appreciated. Resp: Clear to auscultation bilaterally, no rhonchi, rales, wheezing or rubs Course Course Emergency Course: Portions of this record may have been created with voice recognition software. Level of Care: Express Care Visit Vital Signs Vital signs: Vital Signs Temperature 36.7 C 09/28/24 09:45 Pulse Rate 127 H 09/28/24 09:45 Respiratory Rate 18 09/28/24 09:45 Blood Pressure 170/91 H 09/28/24 09:45 Pulse Oximetry 100 09/28/24 09:45 Oxygen Delivery Room Air 09/28/24 09:45 Temperature 36.7 C 09/28/24 09:45 Pulse Rate 127 H 09/28/24 09:45 Respiratory Rate 18 09/28/24 09:45 Blood Pressure 170/91 H 09/28/24 09:45 Pulse Oximetry 100 09/28/24 09:45 Oxygen Delivery Room Air 09/28/24 09:45 Vital signs reviewed MDM - URI/Sore Throat MDM Narrative Medical decision making narrative: At the time of visit patient is resting comfortably on the exam table. Patient appears to be nontoxic. Labs: COVID and influenza testing was performed. Influenza A testing was positive. COVID testing was negative. Plan: Patient has influenza A. Patient is out of the window for Tamiflu. We will send in prescription for albuterol inhaler. Discussed her elevated blood pressure in the clinic today. Work note was given. Supportive measures were discussed with the patient and they voiced understanding discharge instructions and agrees to treatment plan. Return precautions reviewed Differential Diagnosis Differential diagnosis: Likely upper respiratory infection, otitis media, sinusitis, viral infection, bronchitis, influenza, pharyngitis and other (COVID) Discharge Plan Discharge Clinical Impression: Influenza A Patient Disposition: Home, Self-Care Condition: Stable Instructions: Antibiotic Form Additional Instructions: Influenza A testing is positive in the clinic today. COVID testing was negative. Cool-mist humidifier at the bedside May take Coricidin HBP as directed for cold and flu symptoms Take medications as prescribed-albuterol inhaler as needed for cough, shortness of breath, or wheeze Increase fluids and stay well hydrated Tylenol/motrin for pain/fever Flonase and OTC antihistamines as directed Vicks vapor rub to open sinuses Sinus rinses for congestion Cepacol spray, cough drops, throat lozenges, warm tea with honey/lemon, gargle salt water to soothe throat BRAT diet for diarrhea Clear liquids x 24 hours then advance as tolerated for nausea/vomiting Go to the ED if you develop a worsening in your condition- high fever not controlled by Tylenol or Motrin, dehydration, weakness, lethargy, shortness of breath, or chest pain. Follow up with your PCP in 3-5 days if symptoms persist. You have an elevated blood pressure in the clinic today and I recommend follow-up with primary care physician to have this reevaluated within the next week if symptoms persist. [place] [employer] guidelines state that normal blood pressure is 120/80 or less. Anything over 120/80 is considered elevated and should be monitored. You may need to decrease you salt intake and eat a heart healthy diet to help lower you blood pressure, other treatments would include decreasing stress, weight loss, stop caffeine, and quit smoking. Your primary care provider can determine whether you need to start antihypertensive medications. Untreated high blood pressure can cause dizziness, headaches, visual changes, blindness, kidney failure, stroke, and heart attack Patient Language: Martiniquais Prescriptions: New albuterol sulfate 90 mcg/actuation HFA aerosol inhaler 2 puff inhalation Q4-6H PRN (Reason: shortness of breath or wheezing) 30 Days Qty: 8.5 0RF No Action naproxen 500 mg tablet,delayed release (DR/EC) 500 mg PO BID PRN (Reason: pain) Qty: 30 0RF hydroxyzine HCl 25 mg tablet 25 mg PO TID PRN (Reason: nausea and vomiting) Qty: 30 0RF Ozempic 1 mg/dose (4 mg/3 mL) pen injector SUBCUT Rybelsus 3 mg PO DAILY pregabalin [Lyrica] 50 mg Capsule 50 mg PO BID Rx Instructions: pt reports med is now PRN Follow-up/Referrals: UNKNOWN,DOCTOR [Primary Care Provider] - Stand Alone Forms: Work/School Release IP Time of Disposition: 09:53 Quality NIHSS Nursing Documentation ED NIHSS nursing documentation: reviewed/agree
[2024-09-28 09:45] VITALS: BP 170/91; PULSE 127; RESP 18; TEMP 36.7; O2SAT 100
[2024-09-28 10:05] LABS: EDCOVIDSCREEN Negative (Negative); EDINFLUASCREEN Positive (Negative); EDINFLUBSCREEN Negative (Negative)
== END 2024-09-28 10:02 | disposition home or self-care (01) ==
PROVIDERS: Emergency Provider Nurse Practitioner Family
DX: J10.1 Influenza due to other identified influenza virus with other respiratory manifestations (principal); Z20.822 Contact with and (suspected) exposure to COVID-19; E11.42 Type 2 diabetes mellitus with diabetic polyneuropathy
CPT/HCPCS: 87426; 87804; 99213; G0463

== ENCOUNTER 2024-10-03 22:24 | Emergency (ER) | payer BC, SELFPAY ==
--- NOTE | ~2024-10-03 | XR_ITS ---
CHEST RADIOGRAPH, PA AND LATERAL CLINICAL HISTORY: SOB . COMPARISON: 04/25/2022 TECHNIQUE: PA and lateral views of the chest. FINDINGS The cardiomediastinal silhouette is unremarkable. The lungs are clear. Visualized osseous structures and soft tissues are unremarkable. IMPRESSION: No focal infiltrate or effusion. Reviewed, dictated and finalized at location A. R CANE PLANTING EQUIPMENT OPERATOR
--- OUTSIDE RECORDS SUMMARY | 2024-10-03 22:26 | XMS_ITS | Clinical Summary ---
Author Organization [facility] Address [address] [place] [address] Care Team Providers Care College Archivist Name Role Phone Filipe Bull MD Primary Care Provider [phone] [facility],non-owned Affiliates and Associated Physician Practices is amultiple site organization consisting of ambulatory clinics and hospital sitesin [place], [place], [place] and [place]. This disclosure is being madepursuant to the Care Everywhere program and may not contain all information available regarding this patient. Last updated 18.[facility] Allergies No known active allergies Social History Tobacco Use Types Packs/Day Years Used Date Smoking Tobacco: Never Assessed Sex and Gender Information Value Date Recorded Sex Assigned at Not on file Gender Identity Not on file Sexual Orientation Not on file Plan of Treatment Health Maintenance Due Date Last Done Comments COLOGUARD (AGES 45-75) - COL ON CA SCREENING 1977 COLON MONITORING 1977 COLONOSCOPY - COLON CA SCREENING 1977 CT COLONOGRAPHY - COLON CA SCREENING 1977 Colorectal Cancer Screening 1977 FIT - COLON CA SCREENING 1977 FLEX SIG - COLON CA SCREENING 1977 LIPID TESTING 1977 MAMMOGRAM 1977 PAP SMEAR 1977 HIV SCREENING 1992 HEPATITIS C SCREENING 07/27/1995 DTAP/TDAP/TD VACCINES (1 - Tdap) 1996 HEPATITIS B VACCINE (1 of 3 - 19+ 3-dose series) 1996 COVID-19 VACCINE (1 - 2023-2 5 season) 2024 INFLUENZA VACCINE (#1) 2024 DEPRESSION SCREENING 08/02/2024 ZOSTER VACCINE (1 of 2) 2027 HIB VACCINE Aged Out No longer eligi ble based on patient's age to complete this topic HPV VACCINE Aged Out No longer eligi ble based on patient's age to complete this topic MENINGOCOCCAL (Group B) VACCINE Aged Out No longer eligible based on patient's age to complete this topic MENINGOCOCCAL VACCINE Aged Out No stephanie ugo eligible based on patient's age to complete this topic PNEUMOCOCCAL VACCINE Aged Out No long er eligible based on patient's age to complete this topic Care Teams College Archivist Relationship Specialty Start Date End Date Filipe Bull MD [address] [place] [address] PCP - General Family Medicine 03/09/17
--- OUTSIDE RECORDS SUMMARY | 2024-10-03 22:26 | XMS_ITS | Patient Health Summary ---
Author Organization [facility] Address [address] [place] [address] Care Team Providers Care Profiler Name Role Phone Filipe Bull MD Primary Care Provider [phone] Note from [facility],non-owned Affiliates and Associated Physician Practices is amultiple site organization consisting of ambulatory clinics and hospital sitesin [place], [place], [place] and [place]. This disclosure is being madepursuant to the Care Everywhere program and may not contain all information available regarding this patient. Last updated 18.[facility] Allergies No known active allergies Social History Tobacco Use Types Packs/Day Years Used Date Smoking Tobacco: Never Assessed Sex and Gender Information Value Date Recorded Sex Assigned at Not on file Gender Identity Not on file Sexual Orientation Not on file Procedures * SKIN TEST PPD - POINT OF CARE(Performed 03/11/2017) Performed for PPD screening test Results * SKIN TEST PPD - POINT OF CARE (03/11/2017) PPD 0mm Comment:No induration. Form signed, scanned into record, and returned to patient MISCELLANEOUS SAMPLE S / Unknown 03/11/2017 Pranay Garrison PHYSICIAN/INTERNIST-EXECUTIVE VICE PRESIDENT OF SALES LAB - POINT OF CA RE ORDERABLES Care Teams Profiler Relationship Specialty Start Date End Date Filipe Bull MD [address] [place] [address] PCP - General Family Medicine 03/09/17
--- OUTSIDE RECORDS SUMMARY | 2024-10-03 22:26 | XMS_ITS | Continuity of Care Document ---
Author Organization [facility] Address [address] [place] [address] [place] [address] Phone Care Team Providers Care Icu Manager Name Role Phone Arvind Glover MD Unavailable Unavailable Allergies, Adverse Reactions, Alerts Substance Reaction Status Criticality No Known Allergies Active No Inform ation Procedures Procedure Date PREV VISIT, NEW, AGE 18-39 Advance Directives Directive Yes / No Effective Date File Name No Information Encounters Encounter Description Practice Location Reason(s) For Visit Diagnoses Date Provider Providers Copied on Encounter [facility], [address] [place], [place], [id number], tel:[phone] [facility] No Information [address]els. [address], [id number] , [place]. tel:[phone] PREV VISIT, NEW, AGE 18-39 [facility], [address] [place], [place], [id number], [place] tel:[phone] [facility] Medicine Physical (chief complaint) Dietary surveillance and counselingRoutine Medical ExamRoutine Medical Exam 3 Ad[address] Samuels. [address] [facility] [place], [id number] , [place]. tel:[phone] Family History Family Member Type Diagnosis Age At Onset Father Problem (finding) Diabetes mellitus Brother Problem (finding) Hypertension Mother Problem (finding) Coronary artery disease Payers Payer name Insurance type Covered democrat ID Authoriza tion(s) No Information Social History Type Description Quantity Date Captured Comments Sex Female Smoking Status No Information Chief Complaint And Reason For Visit No Information Plan Of Treatment Date Type Action Status Referral Ordered: LUMBAR XRAY AP AND LAT ONLY ordered History Of Present Illness Encounter Date Complaint History Of Prese nt Illness No Information Instructions Date Instruction Additional Infor gregg Dietary counseling Related to Di etary surveillance counseling Decrease caloric intake Related to Dietary surveillance counseling Assessments Type Assessment Date No Information
--- OUTSIDE RECORDS SUMMARY | 2024-10-03 22:26 | XMS_ITS | Clinical Summary ---
Author Organization [facility] Address [address] [place] [address] Care Team Providers Care Transmitter Supervisor Name Role Phone Unavailable Primary Care Provider Unavailabl e Social History Tobacco Use Types Packs/Day Years Used Date Smoking Tobacco: Never Assessed Comments Unknown Sex and Gender Information Value Date Recorded Sex Assigned at Not on file Legal Sex Female 6:57 PM CDT Gender Identity Not on file Sexual Orientation Not on file Plan of Treatment Health Maintenance Due Date Last Done Comments Cervical Cancer Screening Pa p Smear (Age 30 to 64) Every 3 Years 1977 Colorectal Cancer Screening Colonoscopy (10 Years) 1977 Annual Physical 1980 Hepatitis C 1995 DTaP, Tdap and Td Vaccines ( 1 - Tdap) 1996 Hepatitis B Vaccines (1 of 3 - 19+ 3-dose series) 1996 Cervical Cancer Screening Pa p with HPV Testing (Age 30 to 64) Every 5 Years 2007 Cervical Cancer Screening with HPV 2007 Mammogram Screening 2017 COVID-19 Vaccine (2023-2 5 season) 2024 Influenza Adult (#1) 2024 Meningococcal B Vaccine Aged Out No l onger eligible based on patient's age to complete this topic Meningococcal Vaccine Aged Out No stephanie ugo eligible based on patient's age to complete this topic Pneumococcal Vaccine: Pediat rics (0 to 5 Years) and At-Risk Patients (6 to 64 Years) Aged Out No longer eligible b ased on patient's age to complete this topic RSV Immunizations Under 20 Months Aged Out No longer eligible based on patient's age to complete this topic
--- OUTSIDE RECORDS SUMMARY | 2024-10-03 22:26 | XMS_ITS | Referral Summary ---
Author Organization [facility] Address [address] [place] [address] Care Team Providers Care Musical Performer Name Role Phone Filipe Bull MD Primary Care Provider [phone] Source Comments [facility],non-owned Affiliates and Associated Physician Practices is amultiple site organization consisting of ambulatory clinics and hospital sitesin [place], [place], [place] and [place]. This disclosure is being madepursuant to the Care Everywhere program and may not contain all information available regarding this patient. Last updated 18.[facility] Allergies No known active allergies Social History Tobacco Use Types Packs/Day Years Used Date Smoking Tobacco: Never Assessed Sex and Gender Information Value Date Recorded Sex Assigned at Not on file Gender Identity Not on file Sexual Orientation Not on file Plan of Treatment Not on file Administered Medications Care Teams Musical Performer Relationship Specialty Start Date End Date Filipe Bull MD [address] [place] [address] PCP - General Family Medicine 03/09/17
[2024-10-03 22:29] VITALS: BP 163/120; PULSE 114; RESP 24; TEMP 36.7; O2SAT 99
[2024-10-04 00:34] VITALS: BP 152/98; PULSE 97; RESP 18; O2SAT 98
[2024-10-04 03:26] VITALS: BP 168/93; PULSE 96; RESP 16; TEMP 36.8; O2SAT 98; O2SAT 99
[2024-10-04] MEDS: IPRATROPIUM 0.5 MG/ALBUTEROL SULFATE 2.5 MG AMPUL.NEB 3 ML INHALATION (03:56)
[2024-10-04 03:57] VITALS: RESP 20
[2024-10-04] MEDS: BENZONATATE 100 MG CAPSULE 200 MG PO (04:10)
--- NOTE | 2024-10-04 04:16 | ED_ITS ---
HPI - General Adult General Chief complaint: Upper Respiratory Infection Stated complaint: SOB Time Seen by Provider: 10/04/24 03:45 History of Present Illness HPI narrative: Patient 49-year-old female who presents emergency department with chief complaint of cough and nausea the patient states that she was diagnosed with influenza a last and reports that she has been continuing to cough even though she has been using albuterol inhaler. Patient states that cough has been productive of white sputum Related Data Home Medications ?Medication ?Instructions ?Recorded ?Confirmed ?Last Taken ?Type semaglutide 1 mg/dose (4 mg/3 mL) mg subcut 09/28/24 Unknown History subcutaneous pen injector (Ozempic) Allergies Allergy/AdvReac Type Severity Reaction Status Date / Time No Known Allergies Allergy Unknown Verified 10/04/24 03:25 Review of Systems Review of Systems: A 10 system review of systems was completed on the patient and is negative except for what is stated in the HPI. Nursing and ancillary documentation was reviewed. [facility] Past Medical History Medical History Irritable bowel syndrome Diabetic peripheral neuropathy Diabetes mellitus Surgical History Surgical History History of shoulder surgery Left rotator cuff repair; October 2019 History of endometrial ablation Around 2006 History of tubal ligation Around 2006 Hx of cholecystectomy At age [age] years old. Hx of appendectomy Age [age] years old. Family History Family History Mother Depression Heart disease Mother had multi-vessel CABG age 40s. Father Hypertension Family history of diabetes mellitus in first degree relative Diabetes mellitus Sibling No problems noted. Grandparent Malignant neoplasm of prostate, Onset Age: 68 Diabetes mellitus Other Acute myocardial infarction Social History Social History Social History: Ms. Orona lives at home with her significant other in [place]. 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 She denies alcohol, tobacco, or other substance use. Her PCP is a nurse practitioner at Dr Bull's office. She designates her brother, Bran Gan, to be her surrogate decision maker. She is full code status confirmed 07/22/20. Smoking status: Never smoker Alcohol intake: never Substance use: never Gender identity (if verbalized by the patient): Female Spiritual care concerns: No Exam Narrative: GENERAL: Well-appearing, well-nourished, and in no acute distress. HEAD: Normocephalic, atraumatic. EYES: PERRLA and EOMI. ENT: Nares clear, no rhinorrhea or epistaxis. Mucous membranes moist. NECK: Supple. CHEST: Clear to auscultation. No respiratory distress. HEART: Regular rate and rhythm. No murmur heard. Normal peripheral pulses. ABDOMEN: Soft, nontender, nondistended, normal active bowel sounds. EXTREMITIES: Normal range of motion. No edema. SKIN: Warm, dry, no rash. NEURO: No focal deficits. Alert and oriented x3. PSYCH: Normal mood and affect. Course Vital Signs Vital signs: Vital Signs Temperature 36.7 C 10/03/24 22:29 Pulse Rate 114 H 10/03/24 22:29 Respiratory Rate 24 H 10/03/24 22:29 Blood Pressure 163/120 H 10/03/24 22:29 Pulse Oximetry 99 10/03/24 22:29 Temperature 36.8 C 10/04/24 03:26 Pulse Rate 96 10/04/24 03:26 Respiratory Rate 20 10/04/24 03:57 Blood Pressure 168/93 H 10/04/24 03:26 Pulse Oximetry 98 10/04/24 03:26 Oxygen Delivery Room Air 10/04/24 03:26 Medical Decision Making MDM Narrative Medical decision making narrative: Differential diagnosis includes influenza pneumonia, bronchitis Chest x-ray showed no focal infiltrate Patient was given a breathing treatment emergency depart Patient will be discharged home on Tessalon Perles and prednisone Vital Signs Vital Signs: Vital Signs Temperature 36.7 C 10/03/24 22:29 Pulse Rate 114 H 10/03/24 22:29 Respiratory Rate 24 H 10/03/24 22:29 Blood Pressure 163/120 H 10/03/24 22:29 Pulse Oximetry 99 10/03/24 22:29 Temperature 36.8 C 10/04/24 03:26 Pulse Rate 96 10/04/24 03:26 Respiratory Rate 20 10/04/24 03:57 Blood Pressure 168/93 H 10/04/24 03:26 Pulse Oximetry 98 10/04/24 03:26 Oxygen Delivery Room Air 10/04/24 03:26 Discharge Plan Discharge Clinical Impression: Acute upper respiratory infection Patient Disposition: Home, Self-Care Condition: Stable Instructions: Antibiotic Form, Influenza (ED), Upper Respiratory Infection (ED) Patient Language: Swazi Prescriptions: New benzonatate 200 mg capsule 200 mg PO TID PRN (Reason: cough) Qty: 21 0RF prednisone 20 mg tablet 40 mg PO DAILY 5 Days Qty: 10 0RF No Action Ozempic 1 mg/dose (4 mg/3 mL) pen injector SUBCUT Follow-up/Referrals: Filipe Bull MD [Primary Care Provider] - Time of Disposition: 04:56
--- OUTSIDE RECORDS SUMMARY | 2024-10-04 04:47 | XMS_ITS | Referral Summary ---
Author Organization [facility] Address [address] [place] [address] Care Team Providers Care Profile Grinder Technician Name Role Phone Filipe Bull MD Primary Care Provider [phone] Source Comments [facility],non-owned Affiliates and Associated Physician Practices is amultiple site organization consisting of ambulatory clinics and hospital sitesin [place], [place], [place] and [place]. This disclosure is being madepursuant to the Care Everywhere program and may not contain all information available regarding this patient. Last updated 18.[facility] [employer] Allergies No known active allergies Social History Tobacco Use Types Packs/Day Years Used Date Smoking Tobacco: Never Assessed Sex and Gender Information Value Date Recorded Sex Assigned at Not on file Gender Identity Not on file Sexual Orientation Not on file Plan of Treatment Not on file Administered Medications Care Teams Profile Grinder Technician Relationship Specialty Start Date End Date Filipe Bull MD [address] [place] [address] PCP - General Family Medicine 03/09/17
--- OUTSIDE RECORDS SUMMARY | 2024-10-04 04:47 | XMS_ITS | Patient Health Summary ---
Author Organization [facility] Address [address] [place] [address] Care Team Providers Care Fern Cutter Name Role Phone Filipe Bull MD Primary Care Provider [phone] Note [address] [facility],non-owned Affiliates and Associated Physician Practices is amultiple site organization consisting of ambulatory clinics and hospital sitesin [place], [place], [place] and [place]. This disclosure is being madepursuant to the Care Everywhere program and may not contain all information available regarding this patient. Last updated 18.[facility] [employer] Allergies No known active allergies Social History [...] SAMPLE S / Unknown 03/11/2017 Pranay Garrison DIALER-MATERIAL CONTROL ANALYST LAB - POINT OF CA RE ORDERABLES Care Teams Fern Cutter Relationship Specialty Start Date End Date Filpie Bull MD [address] [place] [address] PCP - General Family Medicine 03/09/17
--- OUTSIDE RECORDS SUMMARY | 2024-10-04 04:47 | XMS_ITS | Continuity of Care Document ---
Author Organization [facility] Address [address] [place] [address] [place] [address] Phone Care Team Providers Care Ethylene Plant Operator Name Role Phone Arvind Glover MD Unavailable Unavailable Allergies, Adverse Reactions, Alerts Substance Reaction Status Criticality No Known Allergies Active No Inform ation Procedures Procedure Date PREV VISIT, NEW, AGE 18-39 Advance Directives Directive Yes / No Effective Date File Name No Information Encounters Encounter Description Practice Location Reason(s) For Visit Diagnoses Date Provider Providers Copied on Encounter [facility], [address] [place], [place], [id number], tel:[phone] [facility] No Information 4 Adalberto Samuels. [address] [place], [place], [id number] , [place]. tel:[phone] PREV VISIT, NEW, AGE 18-39 [facility], [address] [place], [id number], [place] tel:[phone] [facility] Medicine Physical (chief complaint) Dietary surveillance and counselingRoutine Medical ExamRoutine Medical Exam 3 Adalberto Samuels. [address] [facility] [place], [id number] , [place]. tel:[phone] Family History Family Member Type Diagnosis Age At Onset Father Problem (finding) Diabetes mellitus Brother Problem (finding) Hypertension Mother Problem (finding) Coronary artery disease Payers Payer name Insurance type Covered alliance party ID Authoriza tion(s) No Information Social History [...]
--- OUTSIDE RECORDS SUMMARY | 2024-10-04 04:47 | XMS_ITS | Clinical Summary ---
Author Organization [facility] Address [address] [place] [address] Care Team Providers Care Wing Commander Name Role Phone Unavailable Primary Care Provider [...]
--- OUTSIDE RECORDS SUMMARY | 2024-10-04 04:47 | XMS_ITS | Clinical Summary ---
Author Organization [facility] Address [address] [place] [address] Care Team Providers Care Human Resources Benefits Administrator Name Role Phone Filipe Bull MD Primary Care Provider [phone] Source Comments [facility],non-owned Affiliates and Associated Physician Practices is amultiple site organization consisting of ambulatory clinics and hospital sitesin [place], [place], [place] and [place]. This disclosure is being madepursuant to the Care Everywhere program and may not contain all information available regarding this patient. Last updated 18.[facility] Allergies No known active allergies Social History [...] age to complete this topic Care Teams Human Resources Benefits Administrator Relationship Specialty Start Date End Date Filipe Bull MD [address] [place] [address] PCP - General Family Medicine 03/09/17
[2024-10-04 05:04] VITALS: O2SAT 98
== END 2024-10-04 05:05 | disposition home or self-care (01) ==
PROVIDERS: Emergency Provider Emergency Medicine; PCP Family Medicine
DX: J06.9 Acute upper respiratory infection, unspecified (principal); E11.9 Type 2 diabetes mellitus without complications
CPT/HCPCS: 71046; 94640; 99284; A9270

== ENCOUNTER 2025-01-05 14:33 | Emergency (ER) | payer BC, SELFPAY ==
--- OUTSIDE RECORDS SUMMARY | 2025-01-05 14:35 | XMS_ITS | Continuity of Care Document ---
Author Organization [facility] Address [address] [place] [address] [place] [address] Phone Care Team Providers Care Billet Examiner Name Role Phone Arvind Glover MD Unavailable Unavailable Allergies, Adverse Reactions, Alerts Substance Reaction Status Criticality No Known Allergies Active No Inform ation Procedures Procedure Date PREV VISIT, NEW, AGE 18-39 Advance Directives Directive Yes / No Effective Date File Name No Information Encounters Encounter Description Practice Location Reason(s) For Visit Diagnoses Date Provider Providers Copied on Encounter [facility], [address] [place], [place], [id number], tel:[phone] [facility] No Information 4 Adalberto Samuels. [address] [place], [id number] , [place]. tel:[phone] PREV VISIT, NEW, AGE 18-39 [facility], [address] [place], [place], [id number], [place] tel:[phone] [facility] Medicine Physical (chief complaint) Dietary surveillance and counselingRoutine Medical ExamRoutine Medical Exam 3 Adalberto Samuels. [address] [employer] [facility] [place], [id number] , [place]. tel:[phone] Family History Family Member Type Diagnosis Age At Onset Father Problem (finding) Diabetes mellitus Brother Problem (finding) Hypertension Mother Problem (finding) Coronary artery disease Payers Payer name Insurance type Covered libertarian ID Authoriza tion(s) No Information Social History [...]
--- OUTSIDE RECORDS SUMMARY | 2025-01-05 14:35 | XMS_ITS | Clinical Summary ---
Author Organization [facility] Address [address] [place] [address] Care Team Providers Care Weather Observer Name Role Phone Filipe Bull MD Primary Care Provider [phone] Source Comments [facility] [employer],non-owned Affiliates and Associated Physician Practices is amultiple site organization consisting of ambulatory clinics and hospital sitesin [place], [place], [place] and [place]. This disclosure is being madepursuant to the Care Everywhere program and may not contain all information available regarding this patient. Last updated 18.[facility] [employer] Allergies No known active allergies Social History Tobacco Use Types Packs/Day Years Used Date Smoking Tobacco: Never Assessed Comments Unknown Sex and Gender Information Value Date Recorded Sex Assigned at Not on file Legal Sex Female 10:48 AM CDT Gender Identity Not on file Sexual [...] SCREENING 1977 LIPID TESTING 1977 MAMMOGRAM 1977 HIV SCREENING 1992 HEPATITIS C SCREENING 07/27/1995 DTAP/TDAP/TD VACCINES (1 - Tdap) 1996 HEPATITIS B VACCINE (1 of 3 - 19+ 3-dose series) 1996 COVID-19 VACCINE (1 - 2023-2 5 season) 2024 DEPRESSION SCREENING 08/02/2024 INFLUENZA VACCINE (Season Ended) 2025 ZOSTER VACCINE (1 of 2) 2027 HIB VACCINE Aged Out No longer eligi ble based on patient's age to complete this topic HPV VACCINE Aged Out No longer eligi ble based on patient's age to complete this topic MENINGOCOCCAL (Group B) VACC INE SHARED DECISION-MAKING Aged Out No longer eligibl e based on patient's age to complete this topic MENINGOCOCCAL GROUPS A/C/Y/W VACCINE Aged Out No longer eligible b ased on patient's age to complete this topic PNEUMOCOCCAL VACCINE Aged Out No long er eligible based on patient's age to complete this topic Care Teams Weather Observer Relationship Specialty Start Date End Date Filipe Bull MD [address] [place] [address] PCP - General Family Medicine 03/09/17
--- OUTSIDE RECORDS SUMMARY | 2025-01-05 14:38 | XMS_ITS | Continuity of Care Document ---
Author Organization [facility] Address [address] [place] [address] Phone Care Team Providers Care Data Review Specialist Name Role Phone Arvind Glover MD Unavailable Unavailable Allergies, Adverse Reactions, Alerts Substance Reaction Status Criticality No Known Allergies Active No Inform ation Procedures Procedure Date PREV VISIT, NEW, AGE 18-39 Advance Directives Directive Yes / No Effective Date File Name No Information Encounters Encounter Description Practice Location Reason(s) For Visit Diagnoses Date Provider Providers Copied on Encounter [facility], [address] [place], [place], [id number], tel:[phone] [facility] No Information 4 Adalberto Samuels. [address] [place], [id number] , [place]. tel:[phone] PREV VISIT, NEW, AGE 18-39 [facility], [address] [place], [place], [id number], [place] tel:[phone] [facility] Medicine Physical (chief complaint) Dietary surveillance and counselingRoutine Medical ExamRoutine Medical Exam 3 Adalberto Samuels. [address] [employer] [facility] [place], [id number] , [place]. tel:[phone] Family History Family Member Type Diagnosis Age At Onset Father Problem (finding) Diabetes mellitus Brother Problem (finding) Hypertension Mother Problem (finding) Coronary artery disease Payers Payer name Insurance type Covered republican ID Authoriza tion(s) No Information Social History [...]
[2025-01-05 14:45] VITALS: BP 164/94; PULSE 93; RESP 16; TEMP 36.8; O2SAT 100
[2025-01-05] MEDS: FLUORESCEIN SOD 1 MG/STRIP RIGHT EYE (15:12)
[2025-01-05] MEDS: DACRIOSE EYE IRRIGATION 118 ML BOTTLE RIGHT EYE (15:12)
[2025-01-05] MEDS: TETRACAINE HCL 0.5% OPHTH SOLN 4 ML BTL RIGHT EYE (15:12)
--- NOTE | 2025-01-05 15:12 | ED_ITS ---
HPI - Eye Problem General Chief complaint: Eye Problems Stated complaint: right eye irritation Source: patient and RN notes reviewed Mode of arrival: ambulatory Limitations: no limitations History of Present Illness HPI Narrative: 49-year-old female presents Express Care complaining of right eye problem. Patient said symptoms started yesterday patient reports having photophobia to fluorescent light, yellow discharge, blurry vision in her right eye, eye discomfort, redness since yesterday. Patient says her vision is not always blurry it is worse when there is discharge present. Patient denies scratching however she does wear contacts and removed her contact is unsure if she scratch her eye. Patient is not currently wearing contacts. Patient denies any nausea vomiting, headache, halos in vision, vision changes, loss of vision history of glaucoma, or eye family history of glaucoma. Patient is not doing [id number]-[id number] now with symptoms. Related Data Home Medications ?Medication ?Instructions ?Recorded ?Confirmed ?Last Taken ?Type semaglutide 1 mg/dose (4 mg/3 mL) mg subcut 09/28/24 Unknown History subcutaneous pen injector (Ozempic) metformin 500 mg tablet mg 01/05/25 Unknown History pregabalin 50 mg capsule mg 01/05/25 Unknown History Allergies Allergy/AdvReac Type Severity Reaction Status Date / Time No Known Allergies Allergy Unknown Verified 01/05/25 14:49 Review of Systems Review of Systems: CONSTITUTIONAL: Denies fever, chills, or sweats. EYES: Denies visual changes. Positive for redness, photophobia, and watery discharge. Negative for eye pressure. ENT: Denies rhinorrhea, congestion, sore throat, or otalgia. CARDIOVASCULAR: Denies chest pain, palpitations, or edema. RESPIRATORY: Denies cough or dyspnea. GASTROINTESTINAL: Denies abdominal pain, nausea, vomiting, or diarrhea. GENITOURINARY: Denies dysuria or hematuria. SKIN: Denies rash or itching. MUSCULOSKELETAL: Denies back pain, joint pain, or myalgia. NEUROLOGIC: Denies headache, numbness, or weakness. PSYCHIATRIC: Denies anxiety or depression. All other systems reviewed are negative, except as documented in HPI. [facility] Past Medical History Medical History Irritable bowel syndrome Diabetic peripheral neuropathy Diabetes mellitus Surgical History Surgical History History of shoulder surgery Left rotator cuff repair; October 2019 History of endometrial ablation Around 2006 History of tubal ligation Around 2006 Hx of cholecystectomy At age [age] years old. Hx of appendectomy Age [age] years old. Family History Family History Mother Depression Heart disease Mother had multi-vessel CABG age 40s. Father Hypertension Family history of diabetes mellitus in first degree relative Diabetes mellitus Sibling No problems noted. Grandparent Malignant neoplasm of prostate, Onset Age: 68 Diabetes mellitus Other Acute myocardial infarction Social History Social History Social History: Ms. Orona lives at home with her significant other in [place]. 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 She denies alcohol, tobacco, or other substance use. Her PCP is a nurse practitioner at Dr Bull's office. She designates her brother, Bran Gan, to be her surrogate decision maker. She is full code status confirmed 07/22/20. Smoking status: Never smoker Alcohol intake: never Substance use: never Gender identity (if verbalized by the patient): Female Spiritual care concerns: No Comments At the time of my signature, I reviewed and agree with the nursing past medical, surgical, social, and family history. There is no relevant family history pertinent to the patient complaint. Exam Narrative: GENERAL: This is a well-nourished, well-developed adult, in no apparent distress. They are non ill-appearing, nontoxic appearing. HEAD: normocephalic, atraumatic. EYES: Sclera clear/white. Right Conjunctiva injected without exudate. No hazy appearance or opacities in the anterior lens of the right eye. Left conjunctiva normal. Vision is grossly intact. Extraocular movements intact. Pupils PERRLA. Wood's lamp exam of right eye no herpetic lesions, vitreous humor, foreign body or corneal abrasions identified. Alcocer lamp exam unremarkable. Eversion of right upper and lower eyelids show no evidence of foreign body. Upper and lower eyelids normal bilaterally. Visual acuity is normal. No foreign body visualized on visual exam. EARS: External ears normal. Hearing grossly intact. NOSE: External nose normal . THROAT: Mucous membranes moist NECK: Neck supple, CARDIOVASCULAR: Regular rate and rhythm RESPIRATORY: Respiratory rate normal, respiratory effort nonlabored, no respiratory distress SKIN: warm, Dry, intact with no suspicious lesions or rash, good texture and turgor. NEURO: awake, alert, and oriented to person, place and time. There were no obvious focal neurologic abnormalities. EXTREMITIES: No joint tenderness, effusion, or edema noted. Course Course Emergency Course: Portions of this record may have been created with voice recognition software Level of Care: Express Care Visit Vital Signs Vital signs: Vital Signs Temperature 98.2 F 01/05/25 14:45 Pulse Rate 93 01/05/25 14:45 Respiratory Rate 16 01/05/25 14:45 Blood Pressure 164/94 H 01/05/25 14:45 Pulse Oximetry 100 01/05/25 14:45 Oxygen Delivery Room Air 01/05/25 14:45 Temperature 98.2 F 01/05/25 14:45 Pulse Rate 93 01/05/25 14:45 Respiratory Rate 16 01/05/25 14:45 Blood Pressure 164/94 H 01/05/25 14:45 Pulse Oximetry 100 01/05/25 14:45 Oxygen Delivery Room Air 01/05/25 14:45 Reviewed MDM - Eye Problem MDM Narrative Medical decision making narrative: Wood's lamp unremarkable for any evidence of corneal abrasion, foreign body, ruptured globe, herpetic lesions, or any findings. No changes the patient's visual acuity. Patient reports having myopia and wears contacts. Patient is not currently wearing contacts. Symptoms are consistent with a bacterial conjunctivitis. Since patient wears contacts will treat with ciprofloxacin eye drops. Patient does endorse photophobia however sunlight does not bother her and she states fluorescent lights do. Patient was recently at the eye doctor and said her eye pressures were normal. No stan pen at this facility. Patient is not exhibiting any signs of glaucoma, patient denies any peripheral vision loss, halos in her eyes, nausea, vomiting, headaches, or severe eye pain. No evidence of iritis or keratitis. Advised close follow-up with roofing machine operator or technical service rep. Patient verbalized understanding. Discussed physical exam findings. Advised supportive measures and signs/symptoms to go to the ER. Pt is appropriate for outpt treatment and f/u. Differential Diagnosis Differential diagnosis: Likely corneal abrasion, conjunctivitis, acute iritis, glaucoma and other (Keratitis) Critical Care Time Critical Care Time Critical Care Time: No Discharge Plan Discharge Clinical Impression: Conjunctivitis Qualifiers: Conjunctivitis type: acute Acute conjunctivitis type: bacterial Laterality: right Qualified Code(s): H10.31 - Unspecified acute conjunctivitis, right eye Patient Disposition: Home Condition: Stable Instructions: Antibiotic Form, Conjunctivitis (ED) Additional Instructions: Your exam today shows Conjunctivitis, You have been given a prescription for eye drops. Use the eye drops as instructed. If you are not better in two (2) days, you need to follow up with an roofing machine operator. Do not rub the eye or put anything else in the eye, this can cause abrasions (scratches) on the eye or lead to vision loss. Also it is important not to touch the tube or tip of drops to the eye, as this can cause further infection. Wash your hands very well before instilling the medication. Handwashing can help prevent the spread of disease. Follow up with PCP or roofing machine operator in 3-5 days. If you developed vision problems, severe eye pain, nausea, vomiting, headaches, or any other concerns please go to the ER immediately. Contact [facility] if you need an Recreational Leader Patient Language: Armenian Prescriptions: New ciprofloxacin HCl 0.3 % drops See Rx Instructions .ROUTE .COMPLEX 7 Days Qty: 5 0RF Rx Instructions: put 1-2 drps in affected eye(s) every 2hr up to 8 times/day x2days; then 4 times/day x5days No Action metformin 500 mg tablet pregabalin 50 mg capsule Ozempic 1 mg/dose (4 mg/3 mL) pen injector SUBCUT Follow-up/Referrals: Filipe Bull MD [Primary Care Provider] - Stand Alone Forms: Work/School Release IP Time of Disposition: 15:56
== END 2025-01-05 16:02 | disposition home or self-care (01) ==
PROVIDERS: PCP Family Medicine
DX: H10.31 Unspecified acute conjunctivitis, right eye (principal); E11.42 Type 2 diabetes mellitus with diabetic polyneuropathy
CPT/HCPCS: 99213; A9270; G0463

== ENCOUNTER 2025-06-03 17:28 | Emergency (ER) | payer BC, SELFPAY ==
--- OUTSIDE RECORDS SUMMARY | 2025-06-03 17:30 | XMS_ITS | Clinical Summary ---
Author Organization [facility] Address [address] [place] [address] Care Team Providers Care Photoengraving Etcher Name Role Phone Unavailable Primary Care Provider [...] HPV 2007 Mammogram Screening 2017 COVID-19 Vaccine (2024-2 6 season) 2025 Influenza Adult (#1) 2025 Hepatitis A Vaccines Aged Out No long er eligible based on patient's age to complete this topic Meningococcal B Vaccine Aged Out No l onger eligible based on patient's age to complete this topic Meningococcal Vaccine Aged Out No stephanie ugo eligible based on patient's age to complete this topic Pneumococcal Vaccine: Pediat rics (0 to 5 Years) and At-Risk Patients (6 to 49 Years) Aged Out No longer eligible b ased on patient's age to complete this topic RSV Immunizations Under 20 Months Aged Out No longer eligible based on patient's age to complete this topic
--- OUTSIDE RECORDS SUMMARY | 2025-06-03 17:32 | XMS_ITS | Clinical Summary ---
Author Organization [facility] Address [address] [place] [address] Care Team Providers Care Manager Orange Name Role Phone Filipe Bull MD Primary Care Provider [phone] Source Comments [facility] [employer],non-owned Affiliates and Associated Physician Practices is amultiple site organization consisting of ambulatory clinics and hospital sitesin [place] and [place]. This disclosure is being madepursuant to the Care Everywhere program and may not contain all information available regarding this patient. Last updated 18.[facility] [employer] Allergies No known active allergies Social History [...] of 3 - 19+ 3-dose series) 1996 DEPRESSION SCREENING 08/02/2024 COVID-19 VACCINE (2023-2 5 season) 2025 INFLUENZA VACCINE (#1) 2025 ZOSTER VACCINE (1 of 2) 2027 [...] age to complete this topic Care Teams Manager Orange Relationship Specialty Start Date End Date Filipe Bull MD [address] [place] [address] PCP - General Family Medicine 03/09/17
[2025-06-03 17:36] VITALS: BP 156/111; PULSE 109; RESP 18; TEMP 36.5; O2SAT 100
--- NOTE | 2025-06-03 17:59 | ED.GENADULT ---
HPI - General Adult General Chief complaint: Abdominal Pain Stated complaint: Abdominal / Back Pain / Diarrhea History of Present Illness HPI narrative: Citlaly Orona is a 49-year-old female with past medical history of diabetes, IBS who presents with complaints of having severe left lower quadrant abdominal pain that started last night along with some diarrhea. She also states she has had some nausea and she vomited twice. She also complains of pain across her whole back in the lower area. Patient appears uncomfortable during triage holding the left side her abdomen. Related Data Home Medications ?Medication ?Instructions ?Recorded ?Confirmed ?Last Taken ?Type semaglutide 1 mg/dose (4 mg/3 mL) mg subcut 09/28/24 Unknown History subcutaneous pen injector (Ozempic) pregabalin 50 mg capsule mg 01/05/25 Unknown History Allergies Allergy/AdvReac Type Severity Reaction Status Date / Time No Known Allergies Allergy Unknown Verified 06/03/25 17:35 Review of Systems Review of Systems: All systems reviewed & are unremarkable except as noted in HPI and below PMFSH Past Medical History Medical History Irritable bowel syndrome Diabetic peripheral neuropathy Diabetes mellitus Surgical History Surgical History History of shoulder surgery Left rotator cuff repair; October 2019 History of endometrial ablation Around 2006 History of tubal ligation Around 2006 Hx of cholecystectomy At age [age] years old. Hx of appendectomy Age [age] years old. Family History Family History Mother Depression Heart disease Mother had multi-vessel CABG age 40s. Father Hypertension Family history of diabetes mellitus in first degree relative Diabetes mellitus Sibling No problems noted. Grandparent Malignant neoplasm of prostate, Onset Age: 68 Diabetes mellitus Other Acute myocardial infarction Social History Social History Social History: Ms. Orona lives at home with her significant other in [place]. 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 She denies alcohol, tobacco, or other substance use. Her PCP is a nurse practitioner at Dr Bull's office. She designates her brother, Bran Gan, to be her surrogate decision maker. She is full code status confirmed 07/22/20. Smoking status: Never smoker Alcohol intake: never Substance use: never Gender identity (if verbalized by the patient): Female Spiritual care concerns: No Exam Narrative: GENERAL: well-nourished,appears uncomfortable HEAD: Normocephalic, atraumatic. EYES: PERRLA and EOMI. ENT: Nares clear, no rhinorrhea or epistaxis. Mucous membranes moist. Oropharynx without tonsillar hypertrophy exudate or other lesions. Bilateral TMs pearly andrew nonbulging NECK: Supple. No adenopathy or masses. No carotid bruits or JVD CHEST: Clear to auscultation. No respiratory distress. No wheezes rales or rhonchi HEART: Regular rate and rhythm. . Normal peripheral pulses. ABDOMEN: hypoactive Bowel sounds, + pain to left lower quadrant, when palpating the right side she feels pain in the left lower side as well. EXTREMITIES: Normal range of motion. No edema. SKIN: Warm, dry, no rash. NEURO: No focal deficits. Alert and oriented x3. PSYCH: Normal mood and affect. Course Course Level of Care: Express Care Visit Vital Signs Vital signs: Vital Signs Temperature 36.5 C 06/03/25 17:36 Pulse Rate 109 H 06/03/25 17:36 Respiratory Rate 18 06/03/25 17:36 Blood Pressure 156/111 H 06/03/25 17:36 Pulse Oximetry 100 06/03/25 17:36 Oxygen Delivery Room Air 06/03/25 17:36 Temperature 36.5 C 06/03/25 17:36 Pulse Rate 109 H 06/03/25 17:36 Respiratory Rate 18 06/03/25 17:36 Blood Pressure 156/111 H 06/03/25 17:36 Pulse Oximetry 100 06/03/25 17:36 Oxygen Delivery Room Air 06/03/25 17:36 Medical Decision Making MDM Narrative Medical decision making narrative: 49-year-old female with past medical history of diabetes, IBS who presents with severe left lower abdominal pain. She comes hunched over holding onto the left lower side of her abdomen she says the pain started last night is getting worse she has had some diarrhea she has had some nausea she vomited twice. Slightly sweating above her lip complaining pain is 10/10 bowel sounds are hypoactive pain pretty centralized to the left lower quadrant with palpation. She is also complaining pain all across the lower her back. Discussed with her that she likely needs further workup and management that we cannot provide her here she says that when she has been urinating that she has been small amounts here in there this could be of ureterolithiasis obstructing ureterolithiasis, diverticulitis acute bowel perforation nothing that I be able to rule out and definitely here. She is agreeable to going to the emergency department however refusing EMS transport would like to drive herself there. I was able to call emergency department talked to [facility] nurse practitioner who accepts transfer to [facility]. Blood sugar was checked before she left it was 122. Medical Records Medical records reviewed: Yes I reviewed the external patient's medical records. Vital Signs Vital Signs: Vital Signs Temperature 36.5 C 06/03/25 17:36 Pulse Rate 109 H 06/03/25 17:36 Respiratory Rate 18 06/03/25 17:36 Blood Pressure 156/111 H 06/03/25 17:36 Pulse Oximetry 100 06/03/25 17:36 Oxygen Delivery Room Air 06/03/25 17:36 Temperature 36.5 C 06/03/25 17:36 Pulse Rate 109 H 06/03/25 17:36 Respiratory Rate 18 06/03/25 17:36 Blood Pressure 156/111 H 06/03/25 17:36 Pulse Oximetry 100 06/03/25 17:36 Oxygen Delivery Room Air 06/03/25 17:36 vitals reviewed Lab Data Labs: Lab Results 06/03/25 Range/Units 17:53 POC Capillary Glucose 122 H (65-105) mg/dl Discharge Plan Discharge Clinical Impression: Abdominal pain Qualifiers: Abdominal location: left lower quadrant Qualified Code(s): R10.32 - Left lower quadrant pain Patient Disposition: Acute Care Hospital Condition: Stable Patient Language: Kyrgyz Prescriptions: No Action pregabalin 50 mg capsule Ozempic 1 mg/dose (4 mg/3 mL) pen injector SUBCUT Follow-up/Referrals: Filipe Bull MD [Primary Care Provider, Family Practice] Time of Disposition: 18:16
== END 2025-06-03 18:02 | disposition short-term general hospital (02) ==
PROVIDERS: Emergency Provider Nurse Practitioner Family; PCP Family Medicine
DX: R10.32 Left lower quadrant pain (principal); E11.42 Type 2 diabetes mellitus with diabetic polyneuropathy
CPT/HCPCS: 82948; 99212; G0463

== ENCOUNTER 2025-06-03 18:19 | Emergency (ER) | payer BC, SELFPAY ==
--- NOTE | ~2025-06-03 | CT_ITS ---
EXAMINATION: CT abdomen pelvis w con DATE: 06/03/2025 22:08 INDICATION: Left lower quadrant abdominal pain. TECHNIQUE: Computed tomography (CT) of the abdomen and pelvis was performed with 100 mL Omnipaque 350 intravenous contrast. Automated exposure control and iterative reconstruction technique were employed. The dose-length product was 1453.08 mGy-cm. COMPARISON: CT abdomen and pelvis 07/15/2023 FINDINGS: The visualized portions of lung bases demonstrate mild atelectasis. No pleural effusion. The heart size is normal. No pericardial effusion. The liver is normal. There are changes of cholecystectomy. Calcifications in the spleen are consistent with old granulomatous disease. The pancreas and adrenal glands are normal. There is cortical thinning of the kidneys. There is a 7 mm cyst in left kidney. There are fibroids in the uterus measuring up to 8.5 cm. There are no dilated loops of bowel. The appendix is normal. There are no pathologically enlarged lymph nodes. There is no free intraperitoneal fluid. There is mild thoracic and lumbar spondylosis. IMPRESSION: 1. Uterine fibroids. Reviewed, dictated and finalized at location E. ROOM EXECUTIVE DIRECTOR IMPRESSION: 1. Uterine fibroids.
[2025-06-03 18:25] VITALS: BP 173/100; PULSE 100; RESP 16; TEMP 36.6; O2SAT 100
--- OUTSIDE RECORDS SUMMARY | 2025-06-03 20:26 | XMS_ITS | Clinical Summary ---
Author Organization [facility] Address [address] [place] [address] Care Team Providers Care Benzene Operator Name Role Phone Unavailable Primary Care Provider [...]
--- NOTE | 2025-06-03 20:44 | ED_ITS ---
HPI - Abdominal Pain General Chief Complaint: Abdominal Pain Stated Complaint: abd pain Time Seen by Provider: 06/03/25 20:14 History of Present Illness HPI narrative: 49-year-old female with history of diabetes on Ozempic, IBS. She presents to the emergency room with left lower quadrant abdominal pain since last night. Associated with 2 episodes of watery diarrhea with some formed stool. Endorses nausea vomiting twice. No upper abdominal pain, traumatic injuries, falls. She was otherwise in her normal state of health. Denies any fever, chills. 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 Has tried some Padmini-Marsteller without any improvement. No chest pain or difficulty breathing. No traumatic injuries. No abdominal surgical history. No bloody emesis or diarrhea. No exotic travel or recent hospitalizations or recent antibiotics. Related Data Home Medications ?Medication ?Instructions ?Recorded ?Confirmed ?Last Taken ?Type semaglutide 1 mg/dose (4 mg/3 mL) mg subcut 09/28/24 Unknown History subcutaneous pen injector (Ozempic) pregabalin 50 mg capsule mg 01/05/25 Unknown History Allergies Allergy/AdvReac Type Severity Reaction Status Date / Time No Known Allergies Allergy Unknown Verified 06/03/25 17:35 Review of Systems 2 Review of Systems: As reviewed above in HPI [facility] Past Medical History Medical History Irritable bowel syndrome Diabetic peripheral neuropathy Diabetes mellitus Surgical History Surgical History History of shoulder surgery Left rotator cuff repair; October 2019 History of endometrial ablation Around 2006 History of tubal ligation Around 2006 Hx of cholecystectomy At age [age] years old. Hx of appendectomy Age [age] years old. Family History Family History Mother Depression Heart disease Mother had multi-vessel CABG age 40s. Father Hypertension Family history of diabetes mellitus in first degree relative Diabetes mellitus Sibling No problems noted. Grandparent Malignant neoplasm of prostate, Onset Age: 68 Diabetes mellitus Other Acute myocardial infarction Social History Social History Social History: Ms. Orona lives at home with her significant other in [place]. 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 She denies alcohol, tobacco, or other substance use. Her PCP is a nurse practitioner at Dr Bull's office. She designates her brother, Bran Gan, to be her surrogate decision maker. She is full code status confirmed 07/22/20. Smoking status: Never smoker Alcohol intake: never Substance use: never Gender identity (if verbalized by the patient): Female Spiritual care concerns: No Exam 2 Narrative: GENERAL: [Well-appearing, well-nourished, and in no acute distress.] HEAD: [Normocephalic, atraumatic.] EYES: [PERRLA and EOMI.] ENT: Nares clear, no rhinorrhea or epistaxis. Mucous membranes moist. NECK: Supple. CHEST: [Clear to auscultation. No respiratory distress.] HEART: [Regular rate and rhythm]. No murmur heard. [Normal peripheral pulses.] ABDOMEN: Soft and nondistended but tender to palpation left lower quadrant without any peritonitis rigidity or guarding. No CVA tenderness. EXTREMITIES: Normal range of motion. [No edema.] SKIN: Warm, dry, no rash. NEURO: [No focal deficits]. Alert and oriented [x3.] PSYCH: [Normal mood and affect.] Course Vital Signs Vital signs: Vital Signs Temperature 36.6 C 06/03/25 18: Pulse Rate 100 06/03/25 18: Respiratory Rate 16 06/03/25 18: Blood Pressure 173/100 H 06/03/25 18:25 Pulse Oximetry 100 06/03/25 18: Temperature 36.6 C 06/03/25 18:25 Pulse Rate 100 06/03/25 18: Respiratory Rate 16 06/03/25 18: Blood Pressure 173/100 H 06/03/25 18: Pulse Oximetry 100 06/03/25 18:25 MDM - Abdominal Pain MDM Narrative Medical decision making narrative: 49-year-old female with history of diabetes on Ozempic, IBS. She presents to the emergency room with left lower quadrant abdominal pain since last night. Associated with 2 episodes of watery diarrhea with some formed stool. Endorses nausea vomiting twice. No upper abdominal pain, traumatic injuries, falls. She was otherwise in her normal state of health. Denies any fever, chills. 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 Has tried some Padmini-Marsteller without any improvement. No chest pain or difficulty breathing. No traumatic injuries. No abdominal surgical history. No bloody emesis or diarrhea. No exotic travel or recent hospitalizations or recent antibiotics. Patient is minimally tender in the left lower quadrant with deep palpation. No signs of peritonitis. No tachycardia, fever, hypoxemia. Mildly elevated blood pressure but secondary to pain most likely. Combined diarrhea left lower quadrant pain and some nauseousness with emesis concerning for gastroenteritis, gastritis, diverticulitis, intra-abdominal infection or abscess. Low suspicion perforation as she is well appearing with unremarkable vitals. She was given morphine fluids and Zofran as well as Bentyl p.o.. Laboratory studies and a CT scan of the abdomen pelvis with contrast obtained for further evaluation. CT scan shows cystitis correlating with her urinary tract infection on urinalysis. No acute findings otherwise. She does have an irregular lobulated uterus likely fibroids. Will recommend outpatient follow-up ultrasound. Laboratory studies showed no leukocytosis or significant anemia. Normal platelet count. Electrolytes are unremarkable. Mildly elevated creatinine consistent with dehydration. Provide fluids here. Glucose 129. Normal LFTs. Normal lipase. Urinalysis shows 4+ bacteria and white blood cells consistent with CT. Given Rocephin here. Will be discharged home with antibiotics for 7 days. Medical Records Attestation: I reviewed the patient's medical records. Lab Data Attestation: I reviewed the patient's lab results. 06/03/25 20:57 06/03/25 20:57 Labs: Lab Results 06/03/25 Range/Units 20:57 WBC 7.2 (4.5-10.0) K/mm3 RBC 3.82 L (4.2-5.4) M/mm3 Hgb 11.5 L (12.0-15.0) g/dL Hct 33.8 L (37.0-47.0) % MCV 88.5 (80-100) fl MCH 30.1 (26-34) pg MCHC 34.0 (32-36) g/dl RDW 11.9 (11.5-14.5) % Plt Count 251 (150-375) k/mm3 MPV 9.1 (7.4-10.4) fl Immature Gran % (Auto) 0.3 (0-0.5) % Neut % (Auto) 37.9 L (45.5-73.1) % Lymph % (Auto) 53.6 H (18.3-44.2) % Potter % (Auto) 5.2 (2.6-8.5) % Eos % (Auto) 2.7 (0-4.4) % Baso % (Auto) 0.3 (0.2-1.2) % Lymph # (Auto) 3.83 H (0.9-3.2) K/mm3 Potter # (Auto) 0.4 (0.1-0.6) K/mm3 Eos # (Auto) 0.2 (0-0.3) K/mm3 Baso # (Auto) 0.0 (0.0-0.1) K/mm3 Abs Immat Gran (auto) 0.02 (0.00-0.031) K/mm3 Absolute Neuts (auto) 2.7 (1.3-6.7) K/mm3 Absolute Nucleated RBC 0.000 (0.0-0.012) K/mm3 Nucleated RBC % 0.0 (0.0-0.2) % Sodium 141 (137-145) mmol/L Potassium 3.7 (3.4-5.0) mmol/L Chloride 106 (98-107) mmol/L Carbon Dioxide 30 (22-30) mmol/L Anion Gap 5 (4-12) mmol/L BUN 13 (7-17) mg/dL Creatinine 1.07 H (0.7-1.0) mg/dL Estim Creat Clear Calc 82 ml/min Estimated GFR 55 L (59 - ) Glucose 129 H (65-110) mg/dL Calcium 8.7 (8.4-10.2) mg/dL Total Bilirubin 0.4 (0.2-1.3) mg/dL AST 27 (14-36) U/L ALT 22 (6-35) U/L Alkaline Phosphatase 70 (38-126) U/L Total Protein 7.1 (6.3-8.2) g/dL Albumin 3.8 (3.5-5.1) g/dL Lipase 236 (23-300) U/L Urine Color Yellow (Yellow) Urine Appearance Cloudy H (Clear) Urine pH 5.5 (5.0-9.0) Ur Specific [place] 1.019 (1.001-1.035) Urine Protein Trace (Negative) mg/dL Urine Glucose (UA) Negative (Negative) mg/dL Urine Ketones Negative (Negative) mg/dL Ur Blood (Man) Non-hemolyzed trace H (Negative) Urine Nitrate Positive H (Negative) Urine Bilirubin Negative (Negative) Urine Urobilinogen 0.2 (<2.0) mg/dL Leukocyte Esterase Rfl 1+ H (Negative) ROCCO/UL Urine RBC 0-2 (0-2) /hpf Urine WBC 51-100 H (0-3) /hpf Ur Squamous Epith Cells Many H (Few) /hpf Urine Bacteria 4+ H /hpf Urine Casts 0-2 Imaging Data Attestation: I personally reviewed and interpreted this imaging study as follows: My impression: Cystitis, uterine fibroids. Discharge Plan Discharge Clinical Impression: Acute cystitis, Urinary tract infection, Fibroid uterus Patient Disposition: Home Condition: Stable Instructions: Antibiotic Form, Uterine Fibroids (ED), Urinary Tract Infection in Women (DC) Additional Instructions: CT scan and urinalysis as well as labs point towards cystitis and urinary tract infection as the source of your symptoms. CT also commented on a fibroid appearing uterus but unlikely related. We will treat this with antibiotics for next 7 days. Maintain good oral hydration. Return with any profound nausea vomiting, inability to tolerate oral intake, fevers unresponsive to Tylenol and ibuprofen, worsening pain or any other emergencies. Follow-up with your doctor otherwise. Patient Language: Gibraltarian Prescriptions: New cefuroxime axetil 500 mg tablet 500 mg PO Q12H 7 Days Qty: 14 0RF ondansetron 4 mg tablet,disintegrating 4 mg PO Q8H PRN (Reason: nausea and vomiting) Qty: 20 0RF No Action pregabalin 50 mg capsule Ozempic 1 mg/dose (4 mg/3 mL) pen injector SUBCUT Follow-up/Referrals: Filipe Bull MD [Primary Care Provider, Family Practice] Time of Disposition: 00:02
[2025-06-03 21:10] LABS: Hematocrit 33.8 % (37.0-47.0); Hemoglobin 11.5 g/dL (12.0-15.0); Immature Granulocyte Percent A 0.3 % (0-0.5); Lymphocytes Absolute Auto 3.83 K/mm3 (0.9-3.2); Mean Corpuscular HGB Conc 34.0 g/dl (32-36); Mean Corpuscular Hemoglobin 30.1 pg (26-34); Mean Corpuscular Volume 88.5 fl (80-100); Nucleated Red Blood Cells Absolute Auto 0.000 K/mm3 (0.0-0.012); Nucleated Red Blood Cells Perc 0.0 % (0.0-0.2); Platelet Count Result 251 k/mm3 (150-375); Red Blood Count 3.82 M/mm3 (4.2-5.4); White Blood Count 7.2 K/mm3 (4.5-10.0)
[2025-06-03] MEDS: DICYCLOMINE HCL 10 MG CAPSULE PO (21:18)
[2025-06-03] MEDS: MORPHINE SULFATE (*CRX) 4 MG/ML INJ IV PUSH (21:18)
[2025-06-03 21:19] LABS: Add Urine Microscopic? YES; Appearance Urine Cloudy (Clear); Glucose Urine UA Negative (Negative); Leukocyte Esterase Ur 1+ LEU/UL (Negative); Nitrate Urine Positive (Negative); Non Pathogenic Casts 0-2; Specific Grav Ur 1.019 (1.001-1.035)
[2025-06-03] MEDS: LACTATED RINGERS 1,000 ML 999 ML IV CONT (21:19)
[2025-06-03] MEDS: ONDANSETRON INJ 4 MG/2 ML VIAL IV PUSH (21:19)
[2025-06-03 21:22] LABS: Alanine Aminotransferase 22 U/L (6-35); Albumin Level 3.8 g/dL (3.5-5.1); Alkaline Phosphatase 70 U/L (38-126); Anion Gap 5 mmol/L (4-12); Aspartate Amino Transferase 27 U/L (14-36); Bilirubin,Total 0.4 mg/dL (0.2-1.3); Blood Urea Nitrogen 13 mg/dL (7-17); Calcium 8.7 mg/dL (8.4-10.2); Carbon Dioxide 30 mmol/L (22-30); Chloride 106 mmol/L (98-107); Estimated CRCL calculation 82 ml/min; Estimated Glomerular Filt Rate 55; Glucose 129 mg/dL (65-110); Lipase 236 U/L (23-300); Potassium 3.7 mmol/L (3.4-5.0); Sodium 141 mmol/L (137-145); Total Protein 7.1 g/dL (6.3-8.2)
[2025-06-03] MEDS: cefTRIAXone 2 GM in SODIUM CHLORIDE 0.9% IV 100 ML 200 ML IVPB (22:51)
== END 2025-06-04 00:16 | disposition home or self-care (01) ==
PROVIDERS: Emergency Provider Student in an Organized Health Care Education/Training Program; PCP Family Medicine
DX: N30.00 Acute cystitis without hematuria (principal); D25.9 Leiomyoma of uterus, unspecified; E11.43 Type 2 diabetes mellitus with diabetic autonomic (poly)neuropathy; K58.9 Irritable bowel syndrome, unspecified; Z90.49 Acquired absence of other specified parts of digestive tract; Z79.85 Long-term (current) use of injectable non-insulin antidiabetic drugs
CPT/HCPCS: 36415; 74177; 80053; 81001; 82948; 83690; 85025; 96361; 96365; 96375; 99284; A9270; J0696; J2270; J2405; J7120; Q9967

== ENCOUNTER 2025-06-05 17:38 | Emergency (ER) | payer BC, SELFPAY ==
--- OUTSIDE RECORDS SUMMARY | 2025-06-05 17:41 | XMS_ITS | Clinical Summary ---
Author Organization [facility] Address [address] [place] [address] Care Team Providers Care Frog Catcher Name Role Phone Filipe Bull MD Primary Care Provider [phone] Source Comments [facility] [employer],non-owned Affiliates and Associated Physician Practices is amultiple site organization consisting of ambulatory clinics and hospital sitesin [place], [place], [place] and [place]. This disclosure is being madepursuant to the Care Everywhere program and may not contain all information available regarding this patient. Last updated 18.[facility] [employer] Allergies No known active allergies Social History [...] age to complete this topic Care Teams Frog Catcher Relationship Specialty Start Date End Date Filipe Bull MD [address] [place] [address] PCP - General Family Medicine 03/09/17
--- OUTSIDE RECORDS SUMMARY | 2025-06-05 17:41 | XMS_ITS | Clinical Summary ---
Author Organization [facility] Address [address] [place] [id number] Care Team Providers Care Commercial Cleaner Name Role Phone Unavailable Primary Care Provider [...]
== END 2025-06-05 17:46 | disposition left against medical advice (07) ==
LOC: EXPTROY 17:40
PROVIDERS: Emergency Provider Nurse Practitioner; PCP Family Medicine
DX: Z53.21 Procedure and treatment not carried out due to patient leaving prior to being seen by health care provider (principal)
CPT/HCPCS: 99199

== ENCOUNTER 2025-06-05 21:03 | Emergency (ER) | payer BC, SELFPAY ==
--- OUTSIDE RECORDS SUMMARY | 2025-06-05 21:06 | XMS_ITS | Clinical Summary ---
Author Organization [facility] Address [address] [place] [address] Care Team Providers Care Glassblower Name Role Phone Filipe Bull MD Primary Care Provider [phone] Source Comments [facility] [employer],non-owned Affiliates and Associated Physician Practices is amultiple site organization consisting of ambulatory clinics and hospital sitesin [place], [place], [place] and [place]. This disclosure is being madepursuant to the Care Everywhere program and may not contain all information available regarding this patient. Last updated 18.[facility] [employer] Allergies No known active allergies Social History [...] age to complete this topic Care Teams Glassblower Relationship Specialty Start Date End Date Filipe Bull MD [address] [place] [address] PCP - General Family Medicine 03/09/17
--- OUTSIDE RECORDS SUMMARY | 2025-06-05 21:06 | XMS_ITS | Clinical Summary ---
Author Organization [facility] Address [address] [place] [id number] Care Team Providers Care Condenser Setter Name Role Phone Unavailable Primary Care Provider [...]
[2025-06-05 21:40] VITALS: BP 152/89; PULSE 109; RESP 18; TEMP 36.6; O2SAT 97
[2025-06-06 00:13] VITALS: BP 163/93; PULSE 100; RESP 18; O2SAT 97
--- OUTSIDE RECORDS SUMMARY | 2025-06-06 00:28 | XMS_ITS | Clinical Summary ---
Author Organization [facility] Address [address] [place] [address] Care Team Providers Care Physician General Internal Medicine Name Role Phone Unavailable Primary Care Provider [...]
--- NOTE | 2025-06-06 00:35 | ED.HA ---
HPI - Headache General Chief Complaint: Headache Stated Complaint: headache Time Seen by Provider: 06/06/25 00:17 History of Present Illness HPI Narrative: Patient is a 49-year-old female who presents to the ER with a headache that started yesterday. She reports her symptoms started after she began a new antibiotic. Patient reports she took ibuprofen prior to arrival with no relief. She reports she has been staying adequately hydrated. Patient denies any recent fevers, nausea vomiting, or numbness and tingling to her extremities. She endorses a history diabetes and high blood pressure. Patient was here 2 days ago and diagnosed with urinary tract infection so she was recently started on Keflex. Related Data Home Medications ?Medication ?Instructions ?Recorded ?Confirmed ?Last Taken ?Type semaglutide 1 mg/dose (4 mg/3 mL) mg subcut 09/28/24 Unknown History subcutaneous pen injector (Ozempic) pregabalin 50 mg capsule mg 01/05/25 Unknown History Allergies Allergy/AdvReac Type Severity Reaction Status Date / Time No Known Allergies Allergy Unknown Verified 06/03/25 17:35 Review of Systems Review of Systems: All systems reviewed & are unremarkable except as noted in HPI and below PMFSH Past Medical History Medical History Irritable bowel syndrome Diabetic peripheral neuropathy Diabetes mellitus Surgical History Surgical History History of shoulder surgery Left rotator cuff repair; October 2019 History of endometrial ablation Around 2006 History of tubal ligation Around 2006 Hx of cholecystectomy At age [age] years old. Hx of appendectomy Age [age] years old. Family History Family History Mother Depression Heart disease Mother had multi-vessel CABG age 40s. Father Hypertension Family history of diabetes mellitus in first degree relative Diabetes mellitus Sibling No problems noted. Grandparent Malignant neoplasm of prostate, Onset Age: 68 Diabetes mellitus Other Acute myocardial infarction Social History Social History Social History: Ms. Orona lives at home with her significant other in [place]. 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 She denies alcohol, tobacco, or other substance use. Her PCP is a nurse practitioner at Dr Bull's office. She designates her brother, Bran Gan, to be her surrogate decision maker. She is full code status confirmed 07/22/20. Alcohol intake: never Substance use: never Gender identity (if verbalized by the patient): Female Spiritual care concerns: No Exam Narrative: GENERAL: Well appearing, well-nourished, non-toxic, in no acute distress. HEAD: Normocephalic, atraumatic. NECK: Supple. No adenopathy, no masses. RESPIRATORY: Airway patent, respirations nonlabored. Clear to auscultation bilaterally, no rales, rhonchi, wheezing. CARDIOVASCULAR: Regular rate and rhythm without murmurs, rubs, or gallops. Peripheral pulses 2+ and equal bilaterally. ABDOMINAL: Soft, nontender, nondistended, no hepatosplenomegaly. Normoactive BS. MUSCULOSKELETAL: Moves all extremities. Strength/ROM intact without gross deformities. SKIN: Warm, dry, normal color. No rashes. NEURO: A&O X3. Speech clear. Cranial nerves II-XII intact. No ataxic movements. PSYCHIATRIC: Appropriate mood and affect. Normal interaction. Course Vital Signs Vital signs: Vital Signs Temperature 36.6 C 06/05/25 21:40 Pulse Rate 109 H 06/05/25 21:40 Respiratory Rate 18 06/05/25 21:40 Blood Pressure 152/89 H 06/05/25 21:40 Pulse Oximetry 97 06/05/25 21:40 Temperature 36.6 C 06/05/25 21:40 Pulse Rate 87 06/06/25 02:04 Respiratory Rate 18 06/06/25 02:04 Blood Pressure 155/88 H 06/06/25 02:04 Pulse Oximetry 99 06/06/25 02:04 Oxygen Delivery Room Air 06/06/25 00:13 MDM - Headache MDM Narrative Medical decision making narrative: Patient is a 49-year-old female who presents to the ER with a headache that started yesterday. She reports her symptoms started after she began a new antibiotic. Patient reports she took ibuprofen prior to arrival with no relief. She reports she has been staying adequately hydrated. Patient denies any recent fevers, nausea vomiting, or numbness and tingling to her extremities. She endorses a history diabetes and high blood pressure. Patient was here 2 days ago and diagnosed with urinary tract infection so she was recently started on Keflex. Labs Ordered: None necessary Imaging Ordered: Patient declined head CT scan Medications Ordered: 1 L normal saline IV bolus, Reglan IV, Benadryl IV, Decadron IV, magnesium IV Diagnosis: Migraine headache Patient Education/Shared MDM: Pt endorses improvement of symptoms following medication administration. She was strongly advised to maintain hydration status upon discharge and follow-up with her PCP as soon as possible her re-evaluation and treat. She will be discharged home with a prescription for Keflex, as she believes the cefuroxime she is currently on is contributing to her headache. Strict return precautions provided. Patient verbalized understanding and is in agreement with plan. Vital signs stable at time of discharge. All questions answered. Differential Diagnosis Differential diagnosis: Likely migraine, tension headache and headache Discharge Plan Discharge Clinical Impression: Headache, Migraine, Recent urinary tract infection Patient Disposition: Home Condition: Stable Instructions: Antibiotic Form, Acute Headache (ED) Additional Instructions: Please return to the ER with any worsening symptoms. Follow-up with primary care provider as soon as possible for re-evaluation and further treatment. Take all medications as prescribed, including regularly scheduled medications. The antibiotic treating your UTI was changed to a different one. Please complete the full dose of antibiotics. Remember to drink lots of water. Patient Language: Vincentian Prescriptions: No Action pregabalin 50 mg capsule Ozempic 1 mg/dose (4 mg/3 mL) pen injector SUBCUT cefuroxime axetil 500 mg tablet 500 mg PO Q12H 7 Days Qty: 14 0RF ondansetron 4 mg tablet,disintegrating 4 mg PO Q8H PRN (Reason: nausea and vomiting) Qty: 20 0RF Follow-up/Referrals: Filipe Bull MD [Primary Care Provider, Family Practice] Stand Alone Forms: Work/School Release IP Time of Disposition: 01:55
[2025-06-06] MEDS: SODIUM CHLORIDE 0.9% IV 1,000 ML 999 ML IV CONT (00:52)
[2025-06-06] MEDS: MAGNESIUM SULF 1 GM/D5W 100 ML 1 GM/100 ML BAG IVPB (00:53)
[2025-06-06] MEDS: dexAMETHasone SOD PHOS INJ 10 MG/ML 1 ML VIAL IV PUSH (00:53)
[2025-06-06] MEDS: METOCLOPRAMIDE HCL INJ 10 MG/2 ML VIAL IV PUSH (00:54)
[2025-06-06] MEDS: KETOROLAC 15 MG/ML VIAL (*BKC) IV PUSH (00:55)
[2025-06-06 02:04] VITALS: BP 155/88; PULSE 87; RESP 18; O2SAT 99
== END 2025-06-06 02:06 | disposition home or self-care (01) ==
PROVIDERS: Emergency Provider Registered Nurse; PCP Family Medicine
DX: G43.909 Migraine, unspecified, not intractable, without status migrainosus (principal); N39.0 Urinary tract infection, site not specified; E11.42 Type 2 diabetes mellitus with diabetic polyneuropathy; K58.9 Irritable bowel syndrome, unspecified; Z90.49 Acquired absence of other specified parts of digestive tract; Z79.85 Long-term (current) use of injectable non-insulin antidiabetic drugs
CPT/HCPCS: 96365; 96375; 99284; J1100; J1200; J1885; J2765; J3475; J7030

== ENCOUNTER 2025-07-20 17:26 | Emergency (ER) | payer OTHER, BC, SELFPAY ==
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
--- OUTSIDE RECORDS SUMMARY | 2025-07-20 17:29 | XMS_ITS | Clinical Summary ---
Author Organization [facility] Address [address] [place] [id number] Care Team Providers Care Fire Alarm Technician Name Role Phone Unavailable Primary Care Provider [...]
[2025-07-20 17:39] VITALS: BP 162/111; PULSE 106; RESP 20; TEMP 36.4; O2SAT 98
--- NOTE | 2025-07-20 18:39 | PC.NURSE ---
Bra/jewelry removed (placed in cup that patient has control of)-patient did not wish to be put in gown
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
--- OUTSIDE RECORDS SUMMARY | 2025-07-20 19:24 | XMS_ITS | Clinical Summary ---
Author Organization [facility] Address [address] [place] [id number] Care Team Providers Care Pneumatic Press Hand Name Role Phone Unavailable Primary Care Provider [...]
[2025-07-20] MEDS: KETOROLAC 30 MG/ML VIAL (*BKC) IM (19:28)
[2025-07-20] MEDS: ACETAMINOPHEN 500 MG TABLET 1000 MG PO (19:28)
[2025-07-20 21:08] VITALS: BP 181/92; PULSE 92; RESP 18; TEMP 36.5; O2SAT 97
[2025-07-20 21:12] LABS: BEDSIDEPREGUCG Negative (Negative)
== END 2025-07-20 21:25 | disposition home or self-care (01) ==
PROVIDERS: Emergency Provider Physician Assistant; PCP Family Medicine
DX: S39.012A Strain of muscle, fascia and tendon of lower back, initial encounter (principal); V89.2XXA Person injured in unspecified motor-vehicle accident, traffic, initial encounter; E11.42 Type 2 diabetes mellitus with diabetic polyneuropathy; Z79.85 Long-term (current) use of injectable non-insulin antidiabetic drugs
CPT/HCPCS: 70450; 72125; 72128; 72131; 81025; 96372; 99284; A9270; J1885